=== PATIENT | male | born 1960 | race Asian ===

== ENCOUNTER 2016-11-07 15:36 | Emergency (ER) | payer OTHER ==
[~2016-11-07] VITALS: Ht 170.2 cm; Wt 82.0 kg
[~2016-11-07 15:36] MED LIST: D-ME118S6 PO; IBUP800T25 PO; ULT50 PO
[2016-11-07 15:39] VITALS: Ht 170.2 cm; Wt 82.0 kg
[2016-11-07] MEDS ORDERED: OSLT75C PO (16:01)
[2016-11-07] MEDS ORDERED: IBUP-1542 PO (16:01)
[2016-11-07] MEDS ORDERED: UDROBDM PO (16:02)
[2016-11-07] MEDS ORDERED: ACET500C5 PO (16:02)
[2016-11-07] MEDS ORDERED: SODI126M NASAL (16:03)
--- NOTE | 2016-11-07 16:09 | ERD ---
ER Documentation Chief Complaint Date/Time DATE: 11/07/16 TIME: 16:06 Chief Complaint FEVER , RUNNY NOSE , COUGH , BODY ACHE , WATERY EYES X 1 WEEK HPI 56-year-old male who presents to emergency department today for intermittent fevers, cough several days ago, runny nose, body ache and watery eyes for the past couple of days. Patient states he was seen another hospital and was diagnosed with a throat infection given amoxicillin. States "I need my amoxicillin" denies any vomiting or diarrhea. ROS All systems reviewed and are negative except as per history of present illness. Medications Home Meds Active Scripts Sodium Chloride (Saline Nasal Mist) 126 Ml Mist, 1 SPRAY NASAL DAILY, #1 BOTTLE Prov:MELANIA RM PA-C 11/07/16 Guaifenesin-Dextromethorphan* (Robitussin* DM) 100MG/10MG/5ML Syrup, 10 ML PO Q4H Y for COUGH for 7 Days, ML Prov:MELANIA RM PA-C 11/07/16 Acetaminophen* (Tylophen*) 500 Mg Capsule, 1 CAP PO Q6H Y for PAIN AND OR ELEVATED TEMP, #30 CAP Prov:MELANIA RM PA-C 11/07/16 Ibuprofen* (Motrin*) 600 Mg Tab, 600 MG PO Q6, #30 TAB Prov:MELANIA RM PA-C 11/07/16 Oseltamivir Phosphate* (Tamiflu*) 75 Mg Capsule, 75 MG PO BID for 5 Days, CAP Prov:MELANIA RM PA-C 11/07/16 Tramadol HCl (Tramadol HCl) 50 Mg Tablet, 50 MG PO Q4 Y for PAIN, #20 TAB Prov:TYSON KATE MD 10/13/16 Tramadol HCl (Tramadol HCl) 50 Mg Tablet, 50 MG PO Q4 Y for PAIN, #10 TAB Prov:MELANIA RM PA-C 08/11/16 Dextromethorphan Hb-Promethazine Hcl (Promethazine DM Syrup) 180 Ml Syrup, 5 ML PO Q6H Y for COUGH, #4 OZ Prov:MELANIA RM PA-C 04/26/16 Reported Medications Ibuprofen* (Motrin*) 800 Mg Tab, 800 MG PO DAILY Y for PAIN, TAB 09/24/14 Allergies Allergies: Coded Allergies: No Known Allergy (Unverified , 10/13/16) PMhx/Soc History of Surgery: Yes Anesthesia Reaction: No Hx Neurological Disorder: No Hx Respiratory Disorders: No Hx Cardiac Disorders: Yes (HTN, High Cholesterol) Hx Psychiatric Problems: Yes (ANXIETY) Hx Miscellaneous Medical Probl: No Hx Alcohol Use: Yes Hx Substance Use: No Hx Tobacco Use: No Physical Exam Vitals Vital Signs Date Time Temp Pulse Resp B/P Pulse Ox O2 Delivery O2 Flow Rate FiO2 11/07/16 15:39 98.3 78 18 134/76 97 Physical Exam Const: No acute distress, nontoxic appearing Head: Atraumatic Eyes: Normal Conjunctiva ENT: Ears TMs normal. Nose no drainage. Throat no erythema no exudate Neck: Full range of motion..~ No meningismus. Resp: Clear to auscultation bilaterally. No absent breath sounds. No wheezing. Cardio: Regular rate and rhythm, no murmurs Abd: Soft, non tender, non distended. Normal bowel sounds Skin: No petechiae or rashes Back: No midline or flank tenderness Neur: Awake and alert Psych: Normal Mood and Affect Procedures/MDM This is 56-year-old male who presents to the emergency department today complaining of flulike symptoms for the past several days. Patient was requesting amoxicillin. I've explained to the patient that amoxicillin is not indicated for his symptoms.. I have low suspicion for strep pharyngitis, peritonsillar abscess, retropharyngeal abscess, otitis media, PNA, sinusitis, abscess, meningitis, sepsis, or other acute infectious bacterial process. On physical exam patient is afebrile. His oxygen saturation is 97% and respirations are 18. I do not feel the patient requires further workup or admission at this time. The patient has had symptoms for more than a couple days given his age I did feel it is appropriate to give him a prescription for Tamiflu. He was also given a prescription for Tylenol, Motrin, Robitussin and nasal saline. He is instructed to follow-up with his primary care physician. At this time the patient is stable for discharge and outpatient management. They should follow up with their PCP in the next 1-2. They may return to the emergency department sooner if symptoms persist or worsen. Patient understood and agreed with the plan. Departure Diagnosis: Primary Impression: Influenza-like symptoms Condition: Fair Patient Instructions: Influenza (Adult) Referrals: IVY UGALDE (PCP) Additional Instructions: Call your primary care doctor TOMORROW for an appointment during the next 1-2 days.See the doctor sooner or return here if your condition worsens before your appointment time. Tamiflu as prescribed Take Tylenol or Motrin for fever or body aches Take Robitussin for cough Nasal saline for runny nose MELANIA RM PA-C Nov 07, 2016 16:09
== END 2016-11-07 16:05 | disposition home or self-care (01) ==
LOC: FTE 15:36 → E/R 16:05
DX: R50.9 Fever, unspecified (principal); R05 Cough; R09.89 Other specified symptoms and signs involving the circulatory and respiratory systems; I10 Essential (primary) hypertension
CPT/HCPCS: 99283

== ENCOUNTER 2017-01-02 13:04 | Emergency (ER) | payer OTHER ==
[~2017-01-02] VITALS: Ht 167.6 cm; Wt 82.5 kg
[~2017-01-02 13:04] MED LIST changes: +ACET500C5 PO; +IBUP-1542 PO; +OSLT75C PO; +SODI126M NASAL; +TRAM50TA2 PO; +UDROBDM PO; -ULT50 PO
[2017-01-02 13:09] VITALS: Ht 167.6 cm; Wt 82.5 kg
[2017-01-02] MEDS ORDERED: SOD CHLORIDE 0.9% 1,000 ML IV STA (16:18)
[2017-01-02 16:55] VITALS: BP 101/58; PULSE 83; RESP 18
[2017-01-02] MEDS ORDERED: KETOROLAC 60 MG INJ IM STA (16:57)
--- NOTE | 2017-01-02 17:59 | ERD ---
ER Documentation Chief Complaint Date/Time DATE: 01/02/17 TIME: 17:56 Chief Complaint left leg pain x 5 days HPI 56-year-old male with a past medical history of hypertension, chronic sciatica presents to the ED complaining of worsening pain that started 5 days ago. States that this pain has been going on intermittently for the last few years. Reports that he sees a chronic pain specialist. Reports that he was feeling stressed out about his pain so he decided to take 2 of his antihypertensive medications, enalapril earlier this morning and this is the reason for his low blood pressure when he presented to the ER. Denies any chest pain, shortness of breath, abdominal pain, nausea, vomiting, diarrhea, headache, numbness or tingling, weakness, fatigue, fever, chills. States that he takes [place], Ambien , tramadol, simvastatin, omeprazole, Benadryl, meloxicam and enalapril. ROS All systems reviewed and are negative except as per history of present illness. Medications Home Meds Active Scripts Sodium Chloride (Saline Nasal Mist) 126 Ml Mist, 1 SPRAY NASAL DAILY, #1 BOTTLE Prov:MELANIA RM PA-C 11/07/16 Guaifenesin-Dextromethorphan* (Robitussin* DM) 100MG/10MG/5ML Syrup, 10 ML PO Q4H Y for COUGH for 7 Days, ML Prov:MELANIA RMC 11/07/16 Acetaminophen* (Tylophen*) 500 Mg Capsule, 1 CAP PO Q6H Y for PAIN AND OR ELEVATED TEMP, #30 CAP Prov:MELANIA RM PA-C 11/07/16 Ibuprofen* (Motrin*) 600 Mg Tab, 600 MG PO Q6, #30 TAB Prov:MELANIA RMC 11/07/16 Oseltamivir Phosphate* (Tamiflu*) 75 Mg Capsule, 75 MG PO BID for 5 Days, CAP Prov:MELANIA RM PA-C 11/07/16 Tramadol HCl (Tramadol HCl) 50 Mg Tablet, 50 MG PO Q4 Y for PAIN, #20 TAB Prov:TYSON KATE MD 10/13/16 Tramadol HCl (Tramadol HCl) 50 Mg Tablet, 50 MG PO Q4 Y for PAIN, #10 TAB Prov:MELANIA RM PA-C 08/11/16 Dextromethorphan Hb-Promethazine Hcl (Promethazine DM Syrup) 180 Ml Syrup, 5 ML PO Q6H Y for COUGH, #4 OZ Prov:JAGMELANIA Weller PA-C 04/26/16 Reported Medications Ibuprofen* (Motrin*) 800 Mg Tab, 800 MG PO DAILY Y for PAIN, TAB 09/24/14 Allergies Allergies: Coded Allergies: No Known Allergy (Unverified , 10/13/16) PMhx/Soc History of Surgery: Yes Anesthesia Reaction: No Hx Neurological Disorder: No Hx Respiratory Disorders: No Hx Cardiac Disorders: Yes (HTN, High Cholesterol) Hx Psychiatric Problems: Yes (ANXIETY) Hx Miscellaneous Medical Probl: No Hx Alcohol Use: Yes Hx Substance Use: No Hx Tobacco Use: Yes Smoking Status: Current every day smoker Physical Exam Vitals Temp 97.7 Pulse 83 SBP 101 DBP 58 O2 Sat 96 Physical Exam Const: [id number], well-nourished. In no acute distress. Head: Atraumatic, normocephalic Eyes: Normal Conjunctiva without injection ENT: Normal external ear, nose and mouth. Neck: Full range of motion. No meningismus. Resp: Clear to auscultation bilaterally. No wheezing, rhonchi, rales, or crackles. No accessory muscle use. No retractions. Cardio: Regular rate and rhythm, no murmurs Skin: No petechiae or rashes Back: No midline tenderness. Tenderness to palpation of left buttocks and lumbar region. No CVA tenderness. Positive left straight leg test. Ext: No cyanosis, or edema. Cap refill less than 2 seconds. Distal pulses intact bilaterally. No tenderness with palpation of the bilateral lower extremities. No warmth to touch. No erythema, edema. Neur: Awake and alert. Normal gait and coordination. Muscle strength 5/5. Sensation intact bilaterally. Psych: Normal Mood and Affect Results 24 hrs Current Medications Medications (Trade) Dose Ordered Sig/Yessy Route PRN Reason Start Time Stop Time Status Last Admin Dose Admin Sodium Chloride (NS) 1,000 ml @ 1,000 mls/hr Q1H STAT IV 01/02/17 16:18 01/02/17 17:17 Cancel Ketorolac Tromethamine (Toradol) 60 mg ONCE STAT IM 01/02/17 16:57 01/02/17 16:59 DC 01/02/17 17:05 Procedures/MDM This is a 56-year-old male with a past medical history of chronic sciatica, hypertension presents the ED complaining of the same chronic pain he has been experiencing. Patient is afebrile and nontoxic-appearing. Patient's blood pressure was noted to be 90/53. This is secondary to patient taking 2 tabs of his enalapril when he is only suppose to take 1 tablet. He received an MRI 4 months ago, I instructed patient that if this feels like new type of pain he should follow-up with his primary care physician to repeat the MRI. Patient is ambulating here in the ED without difficulty. Denies saddle anesthesia, numbness or tingling, urine or bowel incontinence, weakness. Low suspicion for cauda equina syndrome, cord compression, nephrolithiasis, aortic aneurysm, aortic dissection, epidural abscess, spinal hematoma, malignancy, pyelonephritis , degenerative disc disease, spinal stenosis, or other emergent conditions. Patient has been seen here previously for the same type of pain. Patient already filled a prescription on December 24, 2016 for 45 tabs of [place] as well as December 25, 2016 for 15 tabs of [place]. Patient has a long standing history of narcotic use for his chronic pain. I instructed patient that he should follow-up with his pain specialist and should not return to the ED for any refills for his narcotic medications. This case was discussed with my supervising physician, Dr. Adler. Follow up with primary care physician and chronic pain specialist in 1-2 days. Instructed patient to return to the ED sooner for any worsening symptoms. Patient's questions were answered. Patient understood and agreed with discharge plan. Patient discharged stable. Departure Diagnosis: Primary Impression: Chronic sciatica of left side Condition: Stable Patient Instructions: Taking Medication Safely, Understanding Sciatica, Back Pain W/ Sciatica Referrals: [facility] YOU HAVE RECEIVED A MEDICAL SCREENING EXAM AND THE RESULTS INDICATE THAT YOU DO NOT HAVE A CONDITION THAT REQUIRES URGENT TREATMENT IN THE EMERGENCY DEPARTMENT. FURTHER EVALUATION AND TREATMENT OF YOUR CONDITION CAN WAIT UNTIL YOU ARE SEEN IN YOUR DOCTORS OFFICE WITHIN THE NEXT 1-2 DAYS. IT IS YOUR RESPONSIBILITY TO MAKE AN APPOINTMENT FOR FOLOW-UP CARE. IF YOU HAVE A PRIMARY DOCTOR --you should call your primary doctor and schedule an appointment IF YOU DO NOT HAVE A PRIMARY DOCTOR YOU CAN CALL OUR PHYSICIAN REFERRAL HOTLINE AT IF YOU CAN NOT AFFORD TO SEE A PHYSICIAN YOU CAN CHOSE FROM THE FOLLOWING [facility] [address] [facility] [address] [facility] [address] [facility] [address] [facility] [address] [facility]. [facility] [address] [facility]. [facility] YOU HAVE RECEIVED A MEDICAL SCREENING EXAM AND THE RESULTS INDICATE THAT YOU DO NOT HAVE A CONDITION THAT REQUIRES URGENT TREATMENT IN THE EMERGENCY DEPARTMENT. FURTHER EVALUATION AND TREATMENT OF YOUR CONDITION CAN WAIT UNTIL YOU ARE SEEN IN YOUR DOCTORS OFFICE WITHIN THE NEXT 1-2 DAYS. IT IS YOUR RESPONSIBILITY TO MAKE AN APPOINTMENT FOR FOLOW-UP CARE. IF YOU HAVE A PRIMARY DOCTOR --you should call your primary doctor and schedule and appointment IF YOU DO NOT HAVE A PRIMARY DOCTOR YOU CAN CALL OUR PHYSICIAN REFERRAL HOTLINE AT . IF YOU CAN NOT AFFORD TO SEE A PHYSICIAN YOU CAN CHOSE FROM THE FOLLOWING [facility]: [facility] [address] [place] [address] [facility] [address] [place] [address] [facility] [address] [place] [address] [facility] Additional Instructions: FOLLOW UP WITH YOUR CHRONIC PAIN SPECIALIST TOMORROW FOR FURTHER EVALUATION AND TREATMENT. Return to this facility if you are not improving as expected. AVA EVANS PA-C Jan 02, 2017 17:59 TREATMENT. Return to this facility if you are not improving as expected. AVA EVANS PA-C Jan 02, 2017 17:59
--- NOTE | 2017-01-03 06:46 | RADRPT ---
PROCEDURE: XR Chest. CLINICAL INDICATION: Chest pain. TECHNIQUE: Single frontal view. COMPARISON: 04/26/2016. FINDINGS: The lungs are clear. The heart size is normal. There is no pleural effusion. There is no pneumothorax. IMPRESSION: 1. Normal chest radiograph. 2. No change from 04/26/2016. RPTAT: QQ .Fabien French MD, MD Date Time Electronically viewed and signed by .Fabien French MD, MD on 01/02/2017 16:58 .R/
== END 2017-01-02 17:57 | disposition home or self-care (01) ==
LOC: FTE 13:04
DX: M54.32 Sciatica, left side (principal); I10 Essential (primary) hypertension; F17.210 Nicotine dependence, cigarettes, uncomplicated
CPT/HCPCS: 71010; 93005; 96372; J1885; Z7502; J7030

== ENCOUNTER 2017-01-22 10:34 | Emergency (ER) | payer OTHER ==
[~2017-01-22] VITALS: Ht 175.3 cm; Wt 87.0 kg
[2017-01-22 10:41] VITALS: Ht 175.3 cm; Wt 87.0 kg
[2017-01-22] MEDS ORDERED: KETOROLAC 60 MG INJ IM STA (11:57)
--- NOTE | 2017-01-22 13:58 | ERD ---
DATE OF SERVICE: HISTORY OF PRESENT ILLNESS: The patient is a 56-year-old male complaining of left leg pain for 2 we eks. Patient states he has a long history of sciatica pain and this feels the same as previous scia jennifer pain. He states that he takes tramadol and [place] with no alleviation of symptoms. He has had a long history of chronic pain use and is requesting stronger pain medication. He has not had any f teresa, no numbness or tingling down his legs. He is able to ambulate without difficulty. The patie nt denies any urinary retention or bladder incontinence. The urine or bowel incontinence or urinary retention. He denies any numbness or tingling in the saddle region. PAST MEDICAL HISTORY: Denies any other medical problems. ALLERGIES TO MEDICATIONS: Denies. PAST SURGICAL HISTORY/HOSPITALIZATIONS: Denies. REVIEW OF SYSTEMS: A 12-point review of systems was done. Refer to HPI for positives, all other sy stems negative. PHYSICAL EXAMINATION VITAL SIGNS: Temperature is 96.7, pulse 77, blood pressure is 115/59, respiratory rate 20, O2 satur ation 98% on room air. Pain intensity 8/10. GENERAL: The patient is well-appearing, well-nourished, no acute distress. HEENT: Atraumatic. Conjunctivae are pink. Pupils equal, round, and reactive to light. There is no s cleral icterus. Tympanic membranes clear bilaterally. Oropharynx clear. No nystagmus or photophobia . CHEST: Clear to auscultation bilaterally. There are no rales, wheezes or rhonchi. HEART: Regular rate and rhythm. No murmurs, clicks, rubs or gallops. No S3 or S4. EXTREMITIES: Equal pulses bilaterally. There is no peripheral clubbing, cyanosis or edema. No focal swelling or erythema. Full range of motion. Grossly neurovascularly intact. NEURO: Alert and oriented. Cranial nerves 2-12 intact. Motor strength in all 4 extremities with 5/5 strength. Sensation grossly intact. Normal speech and gait. Babinski negative. DTR 2+ throughout. SKIN: There is no apparent rash or petechia. The skin is warm and dry. EMERGENCY ROOM COURSE: The patient given Toradol in the ER. DIAGNOSIS: Sciatica back pain. MEDICAL DECISION MAKING: I did not feel that there was indication for imaging at this time. The jaiden carrero states that his pain is the same as his previous pain related to sciatica. I did not feel alana t patient should be discharged with stronger pain medication. I feel patient would benefit from a p ain head of talent management given that this seems to be a chronic type pain. This was explained in de tail with the patient and he understood and complied. DISCHARGE: The patient is discharged stable. Patient is told to take medications as previously pre scribed. The patient was also given the name of furniture painter. All other questions an swered at time of discharge. Discharge summary given at the time of departure. Patient understood and complied with plan. Dictated By: SARAH THAKUR for TYSON EDWARDS/RENE Conf#: [id number] DID#: [id number]
== END 2017-01-22 12:22 | disposition home or self-care (01) ==
LOC: FTE 10:34
DX: M54.42 Lumbago with sciatica, left side (principal); I10 Essential (primary) hypertension; F17.210 Nicotine dependence, cigarettes, uncomplicated
CPT/HCPCS: 96372; J1885; Z7502

== ENCOUNTER 2017-02-03 15:18 | Emergency (ER) | payer OTHER ==
[~2017-02-03] VITALS: Ht 167.6 cm; Wt 85.5 kg
[2017-02-03 15:22] VITALS: Ht 167.6 cm; Wt 85.5 kg
[2017-02-03] MEDS ORDERED: KETOROLAC 30 MG INJ IM STA (15:54)
--- NOTE | 2017-02-03 16:06 | ERD ---
ER Documentation Chief Complaint Date/Time DATE: 02/03/17 TIME: 16:04 Chief Complaint LEFT LEG "CHRONIC NEUROPATHIC PAIN" HPI This 56-year-old male who presents to the emergency department today complaining of chronic leg pain. States that this is the same pain he always has however it is getting "worse" states he is unsure who his pain management doctor is. Denies any fevers or chills, loss of bowel or bladder control ROS All systems reviewed and are negative except as per history of present illness. Medications Home Meds Active Scripts Sodium Chloride (Saline Nasal Mist) 126 Ml Mist, 1 SPRAY NASAL DAILY, #1 BOTTLE Prov:MELANIA RMC 11/07/16 Guaifenesin-Dextromethorphan* (Robitussin* DM) 100MG/10MG/5ML Syrup, 10 ML PO Q4H Y for COUGH for 7 Days, ML Prov:MELANIA RMC 11/07/16 Acetaminophen* (Tylophen*) 500 Mg Capsule, 1 CAP PO Q6H Y for PAIN AND OR ELEVATED TEMP, #30 CAP Prov:MELANIA RMC 11/07/16 Ibuprofen* (Motrin*) 600 Mg Tab, 600 MG PO Q6, #30 TAB Prov:MELANIA RM PA-C 11/07/16 Oseltamivir Phosphate* (Tamiflu*) 75 Mg Capsule, 75 MG PO BID for 5 Days, CAP Prov:MELANIA RMC 11/07/16 Tramadol HCl (Tramadol HCl) 50 Mg Tablet, 50 MG PO Q4 Y for PAIN, #20 TAB Prov:TYSON KATE MD 10/13/16 Tramadol HCl (Tramadol HCl) 50 Mg Tablet, 50 MG PO Q4 Y for PAIN, #10 TAB Prov:MELANIA RM PA-C 08/11/16 Dextromethorphan Hb-Promethazine Hcl (Promethazine DM Syrup) 180 Ml Syrup, 5 ML PO Q6H Y for COUGH, #4 OZ Prov:MELANIA RMC 04/26/16 Reported Medications Ibuprofen* (Motrin*) 800 Mg Tab, 800 MG PO DAILY Y for PAIN, TAB 09/24/14 Allergies Allergies: Coded Allergies: No Known Allergy (Unverified , 02/03/17) PMhx/Soc History of Surgery: Yes Anesthesia Reaction: No Hx Neurological Disorder: No Hx Respiratory Disorders: No Hx Cardiac Disorders: Yes (HTN, High Cholesterol) Hx Psychiatric Problems: Yes (ANXIETY, paranoid schzo) Hx Miscellaneous Medical Probl: Yes (siatica) Hx Alcohol Use: Yes Hx Substance Use: No Hx Tobacco Use: Yes Smoking Status: Never smoker Physical Exam Vitals Vital Signs Date Time Temp Pulse Resp B/P Pulse Ox O2 Delivery O2 Flow Rate FiO2 02/03/17 15:22 98.1 92 18 104/64 95 Physical Exam Const: No acute distress Head: Atraumatic Eyes: Normal Conjunctiva ENT: Normal External Ears, Nose and Mouth. Neck: Full range of motion..~ No meningismus. Resp: Clear to auscultation bilaterally Cardio: Regular rate and rhythm, no murmurs Skin: No petechiae or rashes Back: No midline or flank tenderness Ext: No cyanosis, or edema Neur: Awake and alert Psych: Normal Mood and Affect Results 24 hrs Current Medications Medications (Trade) Dose Ordered Sig/Yessy Route PRN Reason Start Time Stop Time Status Last Admin Dose Admin Ketorolac Tromethamine (Toradol) 30 mg ONCE STAT IM 02/03/17 15:54 02/03/17 15:55 DC Procedures/MDM This 56-year-old male who presents to the emergency department today complaining of chronic leg pain and sciatic pain. This is the patient's third visit to the emergency department this year for the same complaint. Patient has also had multiple visits in the past for pain. Patient is always requesting stronger pain medication that you are he has. Patient has a history of taking [place] and tramadol in the past. I do not feel the patient requires further workup or imaging at this time or repeat imaging. Patient is afebrile and otherwise well-appearing. Is no loss of bowel or bladder control. Low suspicion for cauda equina or abscess. I do not feel the patient would benefit from a narcotic medication at this time. Patient is persistently asking for 60 mg of Toradol as he states he is gotten that in the past. I explained to the patient that I do not feel that this is beneficial at this time given the amount of injections that he has had and that 30 mg is safer for him especially given his age. I explained this to the patient multiple times. I explained to him that he would not be getting more than 30 mg of Toradol today. Do not feel this patient would benefit from 60 mg of Toradol as he often presents to the emergency department. Patient symptoms at this time is consistent with sciatic pain. Patient was given a referral information for Dr. Lind. He has been given this information in the past I believe. Patient was instructed that if he was unable to see them that he should try to find out who his pain management doctor is. At this time the patient is stable for discharge and outpatient management. Patient should follow up with their PCP in the next 1-2 days. They may return to the emergency department sooner for any persistent or worsening of symptoms. Patient understood and agreed with the plan. Departure Diagnosis: Primary Impression: Chronic sciatica of left side Condition: Fair Patient Instructions: Pain Management, Back Pain W/ Sciatica Referrals: SONNY GIMENEZ NP (PCP) Dr. Lind Additional Instructions: Call your primary care doctor TOMORROW for an appointment during the next 1-2 days.See the doctor sooner or return here if your condition worsens before your appointment time. Make an appointment with your pain management doctor Make an appointment Dr. Lind if she takes your insurance Take your usual home pain medication MELANIA RM PA-C Feb 03, 2017 16:06
== END 2017-02-03 16:30 | disposition home or self-care (01) ==
LOC: FTE 15:18
DX: M54.32 Sciatica, left side (principal); I10 Essential (primary) hypertension; Z87.891 Personal history of nicotine dependence
CPT/HCPCS: 96372; J1885

== ENCOUNTER 2017-02-11 15:45 | Emergency (ER) | payer OTHER ==
[~2017-02-11] VITALS: Ht 160 cm; Wt 89.0 kg
[2017-02-11 15:57] VITALS: Ht 160 cm; Wt 89.0 kg
[2017-02-11] MEDS ORDERED: KETOROLAC 30 MG INJ IM STA (18:30)
[2017-02-11] MEDS ORDERED: NAPR-260 PO (18:32)
--- NOTE | 2017-02-11 18:32 | ERD ---
ER Documentation Chief Complaint Date/Time DATE: 02/11/17 TIME: 18:30 Chief Complaint back pain rad left leg, hx sciatica HPI This is a 56 year-old male presents to the emergency room for evaluation of back pain radiating down his left leg. The patient does have a history of sciatica and was seen in the emergency room previously was discharged home with Motrin. The patient denies any urinary incontinence or urinary retention ROS All systems reviewed and are negative except as per history of present illness. Medications Home Meds Active Scripts Sodium Chloride (Saline Nasal Mist) 126 Ml Mist, 1 SPRAY NASAL DAILY, #1 BOTTLE Prov:MELANIA RMC 11/07/16 Guaifenesin-Dextromethorphan* (Robitussin* DM) 100MG/10MG/5ML Syrup, 10 ML PO Q4H Y for COUGH for 7 Days, ML Prov:MELANIA RMC 11/07/16 Acetaminophen* (Tylophen*) 500 Mg Capsule, 1 CAP PO Q6H Y for PAIN AND OR ELEVATED TEMP, #30 CAP Prov:MELANIA RMC 11/07/16 Ibuprofen* (Motrin*) 600 Mg Tab, 600 MG PO Q6, #30 TAB Prov:MELANIA RM PA-C 11/07/16 Oseltamivir Phosphate* (Tamiflu*) 75 Mg Capsule, 75 MG PO BID for 5 Days, CAP Prov:MELANIA RMC 11/07/16 Tramadol HCl (Tramadol HCl) 50 Mg Tablet, 50 MG PO Q4 Y for PAIN, #20 TAB Prov:TYSON KATE MD 10/13/16 Tramadol HCl (Tramadol HCl) 50 Mg Tablet, 50 MG PO Q4 Y for PAIN, #10 TAB Prov:MELANIA RM PA-C 08/11/16 Dextromethorphan Hb-Promethazine Hcl (Promethazine DM Syrup) 180 Ml Syrup, 5 ML PO Q6H Y for COUGH, #4 OZ Prov:MELANIA RMC 04/26/16 Reported Medications Ibuprofen* (Motrin*) 800 Mg Tab, 800 MG PO DAILY Y for PAIN, TAB 09/24/14 Allergies Allergies: Coded Allergies: No Known Allergy (Unverified , 02/03/17) PMhx/Soc History of Surgery: Yes Anesthesia Reaction: No Hx Neurological Disorder: No Hx Respiratory Disorders: No Hx Cardiac Disorders: Yes (HTN, High Cholesterol) Hx Psychiatric Problems: Yes (ANXIETY, paranoid schzo) Hx Miscellaneous Medical Probl: Yes (siatica) Hx Alcohol Use: Yes Hx Substance Use: No Hx Tobacco Use: Yes Physical Exam Vitals Vital Signs Date Time Temp Pulse Resp B/P Pulse Ox O2 Delivery O2 Flow Rate FiO2 02/11/17 15:57 98.1 90 18 140/71 99 Physical Exam Const: No acute distress Head: [Atraumatic] Eyes: [Normal Conjunctiva] ENT: [Normal External Ears, Nose and Mouth.] Neck: [Full range of motion. No meningismus.] Resp: [Clear to auscultation bilaterally] Cardio: [Regular rate and rhythm, no murmurs] Abd: [Soft, non tender, non distended. Normal bowel sounds] Skin: [No petechiae or rashes] Back: [No midline or flank tenderness] Ext: [No cyanosis, or edema] positive straight leg raise at 20 on left, Neur: [Awake and alert] Psych: [Normal Mood and Affect] Procedures/MDM This 46-year-old male presents to the ER for evaluation of back pain. This patient does have a history of sciatica and does have a pain consistent with sciatica today. Does have a positive straight leg raise. He was given Toradol and will be discharged home with a prescription for Naprosyn instructions to follow-up with his primary care for an MRI Departure Diagnosis: Primary Impression: Chronic sciatica of left side Condition: Stable SANDY MOSER DO Feb 11, 2017 18:31
== END 2017-02-11 18:50 | disposition home or self-care (01) ==
LOC: FTE 15:45
DX: M54.32 Sciatica, left side (principal); I10 Essential (primary) hypertension; Z87.891 Personal history of nicotine dependence
CPT/HCPCS: 96372; J1885; Z7502

== ENCOUNTER 2017-03-07 15:32 | Emergency (ER) | payer OTHER ==
[~2017-03-07] VITALS: Ht 167.6 cm; Wt 85.5 kg
[~2017-03-07 15:32] MED LIST changes: +NAPR-260 PO
[2017-03-07 15:39] VITALS: Ht 167.6 cm; Wt 85.5 kg
[2017-03-07] MEDS ORDERED: AZIT250T94 PO (16:16)
[2017-03-07] MEDS ORDERED: LORA10CA PO (16:16)
--- NOTE | 2017-03-07 16:20 | ERD ---
ER Documentation Chief Complaint Date/Time DATE: 03/07/17 TIME: 16:18 Chief Complaint RUNNY NOSE, WATERY EYES X 4 DAYS HPI 56-year-old male is here complaining of runny nose and watery eyes that he has had for 4 days. Also admits to subjective fever and cough that is dry and worse at night. He is adamant about getting antibiotics as he states he has had these symptoms in the past and has had good relief of his symptoms with antibiotics. He denies any nausea or vomiting or diarrhea. Denies any chest pain or shortness of breath peer ROS All systems reviewed and are negative except as per history of present illness. Medications Home Meds Active Scripts Loratadine* (Claritin*) 10 Mg Capsule, 10 MG PO DAILY, #30 CAP Prov:DAVY MONTELONGO PA-C 03/07/17 Azithromycin* (Zithromax*) 250 Mg Tablet, 250 MG PO .ZPACK DIRECTED, #6 TAB TAKE 500 MG (2 TABS) THE FIRST DAY THEN 250 MG (1 TAB) DAYS 2-5 Prov:DAVY MONTELONGO PA-C 03/07/17 Naproxen* (Naprosyn*) 500 Mg Tablet, 500 MG PO BID Y for PAIN AND/OR INFLAMMATION, #30 TAB Prov:SANDY MOSER DO 02/11/17 Sodium Chloride (Saline Nasal Mist) 126 Ml Mist, 1 SPRAY NASAL DAILY, #1 BOTTLE Prov:MELANIA RM PA-C 11/07/16 Guaifenesin-Dextromethorphan* (Robitussin* DM) 100MG/10MG/5ML Syrup, 10 ML PO Q4H Y for COUGH for 7 Days, ML Prov:MELANIA RM PA-C 11/07/16 Acetaminophen* (Tylophen*) 500 Mg Capsule, 1 CAP PO Q6H Y for PAIN AND OR ELEVATED TEMP, #30 CAP Prov:MELANIA RM PA-C 11/07/16 Ibuprofen* (Motrin*) 600 Mg Tab, 600 MG PO Q6, #30 TAB Prov:MELANIA RM PA-C 11/07/16 Oseltamivir Phosphate* (Tamiflu*) 75 Mg Capsule, 75 MG PO BID for 5 Days, CAP Prov:MELANIA RM PA-C 11/07/16 Tramadol HCl (Tramadol HCl) 50 Mg Tablet, 50 MG PO Q4 Y for PAIN, #20 TAB Prov:TYSON KATE MD 10/13/16 Tramadol HCl (Tramadol HCl) 50 Mg Tablet, 50 MG PO Q4 Y for PAIN, #10 TAB Prov:MELANIA RMC 08/11/16 Dextromethorphan Hb-Promethazine Hcl (Promethazine DM Syrup) 180 Ml Syrup, 5 ML PO Q6H Y for COUGH, #4 OZ Prov:MELANIA RMC 04/26/16 Reported Medications Ibuprofen* (Motrin*) 800 Mg Tab, 800 MG PO DAILY Y for PAIN, TAB 09/24/14 Allergies Allergies: Coded Allergies: No Known Allergy (Unverified , 02/03/17) PMhx/Soc History of Surgery: Yes Anesthesia Reaction: No Hx Neurological Disorder: No Hx Respiratory Disorders: No Hx Cardiac Disorders: Yes (HTN, High Cholesterol) Hx Psychiatric Problems: Yes (ANXIETY, paranoid schzo) Hx Miscellaneous Medical Probl: Yes (sciatica) Hx Alcohol Use: Yes Hx Substance Use: No Hx Tobacco Use: Yes FmHx Family History: No diabetes Physical Exam Vitals Vital Signs Date Time Temp Pulse Resp B/P Pulse Ox O2 Delivery O2 Flow Rate FiO2 03/07/17 15:39 98.8 91 18 133/81 96 Physical Exam General: well developed, well nourished, alert, nontoxic, no distress Head: normocephalic, atraumatic Eyes: PERRL, normal conjunctiva Neck: Supple, nontender, no lymphadenopathy, no midline tenderness Oropharynx: no tonsilar erythema or edema, uvula midline, no exudates, no kissing tonsils, no drooling Respiratory: Clear to auscaultation bilaterally, speaks in full sentences, no use of accesory muscles or labored breathing, no rales, ronchi, or wheezing Cardiovascular: RRR, No murmurs GI: soft, non tender, non distended, negative murphys sign, negative mcburneys point tenderness, no cva tenderness bilaterally, no rebound or guarding Back: no midline tenderness, no step offs or bony abnormalities, sensation to light touch in tact Procedures/MDM 56-year-old male presents with flulike symptoms. His vital signs are normal. I doubt he has pneumonia. This is most likely allergy related and I recommended Claritin which I given prescription for. The patient was very adamant about getting antibiotics which I explained to him are not indicated in his condition however he continue to press for antibiotics so I gave him a wait- and-see prescription for amoxicillin as well. Recommended this patient follow up with her primary care doctor within 48 hours or return to the emergency room for any worsening of symptoms. However this time I do believe there is suitable for outpatient management. I answered all their questions and they agreed with the plan and were discharged home. Departure Diagnosis: Primary Impression: Upper respiratory infection Condition: Stable Patient Instructions: Bronchitis, Antiobiotic Treatment (Adult) Additional Instructions: Call your primary care doctor TOMORROW for an appointment during the next 1-2 days.See the doctor sooner or return here if your condition worsens before your appointment time. DAVY MONTELONGO PA-C March 07, 2017 16:20
== END 2017-03-07 16:17 | disposition home or self-care (01) ==
LOC: E/R 15:32
DX: J06.9 Acute upper respiratory infection, unspecified (principal); I10 Essential (primary) hypertension; Z87.891 Personal history of nicotine dependence
CPT/HCPCS: 99283

== ENCOUNTER 2017-05-29 10:41 | Inpatient (IN) | payer OTHER ==
[~2017-05-29] VITALS: Ht 167.6 cm; Wt 81.1 kg
[~2017-05-29 10:41] MED LIST changes: +AZIT250T94 PO; +LORA10CA PO
--- NOTE | 2017-05-29 11:39 | RADRPT ---
AMENDMENT: 05/29/2017 11:40:26 AM Farshad Rae Md Call report with critical findings was made to physician insurance account assistant Ulises Lange PROCEDURE: CT Head without contrast. CLINICAL INDICATION: Trauma, pain TECHNIQUE: Continuous axial CT images were obtained from the base of skull to the vertex. No cont rast was administered. The calculated radiation dose measures 720 mGy centimeters. The CTDI measures 44 mGy COMPARISON: None available FINDINGS: There is high density in the anterior right frontal lobe, consistent with a parenchymal hematoma, me asuring 1.6 x 1.1 cm in size. There is mild adjacent low density contusion/edema, with minimal asso ciated mass effect. There is no midline shift. The ventricles are symmetric and normal in size. There is no mass effect or midline shift. There i s no abnormal intra-axial or extra-axial fluid collection. There is mild intracranial vascular calci fication. The bony calvarium is intact. The orbital soft tissue contents are unremarkable. Paranasal sinuses appear clear IMPRESSION: 1. Right frontal parenchymal hematoma, 16 x 11 mm. Minimal associated mass effect, without midline shift. 2. Mild intracranial vascular calcification. RPTAT: DD .Farshad Rae MD, MD Date Time Electronically viewed and signed by .Farshad Rae MD, MD on 05/29/2017 11:40 .T/
[2017-05-29] MEDS ORDERED: LEVETIRACETAM 1000 MG (PMX) 100 ML IVPB ONE (12:00)
--- NOTE | 2017-05-29 12:00 | RADRPT ---
PROCEDURE: CT facial bones CLINICAL INDICATION: Trauma, pain TECHNIQUE: Multiphase CT scan of the face was performed in the axial plane. Coronal and sagittal re-formations were performed. The calculated radiation dose measures 586 mGy centimeters. The CTDI m easures 30 mGy COMPARISON: None FINDINGS: The mandible is identified demonstrating no evidence of fracture or bony dysplasia. There is no joe dence of adjacent soft tissue swelling. The mid face and bony orbits demonstrate no evidence of acute fracture. Evaluation of the orbits de monstrates the globes to be normal in their size, shape, and attenuation bilaterally. No definite i ntra or extraconal soft tissue masses are seen. The optic nerve and nerve sheath complexes bilatera lly appear unremarkable. There is mucosal thickening in the paranasal sinuses. There is a cyst involving the left nasal alve olar ridge, contiguous with the root of a absent first maxillary incisor. This measures up to 1.4 x 2.1 cm. There is a small defect in the roof of the cyst which is open to the floor of the left ronald al cavity. There is right pre malar and periorbital soft tissue swelling. There are scattered small right level II lymph nodes, up to 10 x 10 mm. There is left temporomandibular joint degenerative change. IMPRESSION: 1. No evidence for acute fracture or dislocation. 2. Cystic lesion in the left maxillary alveolar ridge, 1.4 x 2.1 cm, with involvement of the root o f the left first maxillary incisor, which is absent. This may reflect an odontogenic keratocyst, cristina gisella periapical cyst or ameloblastoma. There is a small connection with the inferior left nasal cavi ty. 3. Right premalar and periorbital soft tissue swelling, consistent with contusion or cellulitis.. RPTAT: DD .Farshad Rae MD, MD Date Time Electronically viewed and signed by .Farshad Rae MD, on 05/29/2017 11:59 .T/
[2017-05-29 12:29] LABS: BASOPHIL # 0.1 10^3/ul (0.0-0.1); BASOPHILS % 0.8 % (0.0-2.0); EOSINOPHILS # 0.8 10^3/ul (0.0-0.5); HEMATOCRIT 39.2 % (42.0-52.0); HEMOGLOBIN 12.4 g/dl (14.0-18.0); LYMPHOCYTES # 1.1 10^3/ul (0.8-2.9); LYMPHOCYTES % 16.4 % (15.0-51.0); MEAN CORPUSCULAR HEMOGLOBIN 29.2 pg (29.0-33.0); MEAN CORPUSCULAR HGB CONC 31.6 g/dl (32.0-37.0); MEAN CORPUSCULAR VOLUME 92.5 fl (82.0-101.0); MEAN PLATELET VOLUME 8.4 fl (7.4-10.4); MONOCYTE # 0.6 10^3/ul (0.3-0.9); MONOCYTES % 8.4 % (0.0-11.0); NEUTROPHIL # 4.1 10^3/ul (1.6-7.5); NEUTROPHILS % 62.1 % (39.0-77.0); PLATELET COUNT 282 10^3/UL (140-415); RED BLOOD COUNT 4.24 10^6/ul (4.70-6.10); RED CELL DISTRIBUTION WIDTH 12.8 % (11.5-14.5); WHITE BLOOD COUNT 6.5 10^3/ul (4.8-10.8)
[2017-05-29] MEDS ORDERED: CLINDAMYCIN 600 MG/D5W (PMX) 50 ML IVPB SCH (12:30)
[2017-05-29] MEDS ORDERED: SOD CHLORIDE 0.9% 1,000 ML IV SCH (12:33)
[2017-05-29 12:40] LABS: INR 0.9; PROTIME 12.1 Sec (12.2-14.2); PT RATIO 0.9
[2017-05-29 12:41] LABS: PARTIAL THROMBOPLASTIN TIME 30.6 Sec (25.0-35.0)
--- NOTE | 2017-05-29 12:42 | ERA ---
ER Documentation Chief Complaint Date/Time DATE: 05/29/17 TIME: 12:37 Chief Complaint right facial swelling x 5 days s/p fall 5 days ago HPI This is a 66-year-old male who presents to the emergency room for evaluation of right facial pain and swelling. The patient did have a fall 5 days ago and states he tripped over his garden hose and fell forward and hit his head. He did not lose consciousness, he denies being on any blood thinners. The patient came to the ER because he states the swelling has not resolved on his right side. Patient also states that he has had a recent cavity on a tooth on the right side of his mouth. The patient denies any blurred vision or any trauma or pain anywhere else in his body. He denies headache at this time ROS All systems reviewed and are negative except as per history of present illness. Medications Home Meds Active Scripts Loratadine* (Claritin*) 10 Mg Capsule, 10 MG PO DAILY, #30 CAP Prov:DAVY MONTELONGO PA-C 03/07/17 Azithromycin* (Zithromax*) 250 Mg Tablet, 250 MG PO .LAZARUS DIRECTED, #6 TAB TAKE 500 MG (2 TABS) THE FIRST DAY THEN 250 MG (1 TAB) DAYS 2-5 Prov:DAVY MONTELONGO PA-C 03/07/17 Naproxen* (Naprosyn*) 500 Mg Tablet, 500 MG PO BID Y for PAIN AND/OR INFLAMMATION, #30 TAB Prov:SANDY MOSER DO 02/11/17 Sodium Chloride (Saline Nasal Mist) 126 Ml Mist, 1 SPRAY NASAL DAILY, #1 BOTTLE Prov:MELANIA RM PA-C 11/07/16 Guaifenesin-Dextromethorphan* (Robitussin* DM) 100MG/10MG/5ML Syrup, 10 ML PO Q4H Y for COUGH for 7 Days, ML Prov:MELANIA RM PA-C 11/07/16 Acetaminophen* (Tylophen*) 500 Mg Capsule, 1 CAP PO Q6H Y for PAIN AND OR ELEVATED TEMP, #30 CAP Prov:MELANIA RM PA-C 11/07/16 Ibuprofen* (Motrin*) 600 Mg Tab, 600 MG PO Q6, #30 TAB Prov:MELANIA RM PA-C 11/07/16 Oseltamivir Phosphate* (Tamiflu*) 75 Mg Capsule, 75 MG PO BID for 5 Days, CAP Prov:MELANIA RM PA-C 11/07/16 Tramadol HCl (Tramadol HCl) 50 Mg Tablet, 50 MG PO Q4 Y for PAIN, #20 TAB Prov:TYSON KATE MD 10/13/16 Tramadol HCl (Tramadol HCl) 50 Mg Tablet, 50 MG PO Q4 Y for PAIN, #10 TAB Prov:MELANIA RM PA-C 08/11/16 Dextromethorphan Hb-Promethazine Hcl (Promethazine DM Syrup) 180 Ml Syrup, 5 ML PO Q6H Y for COUGH, #4 OZ Prov:MELANIA RM PA-C 04/26/16 Reported Medications Ibuprofen* (Motrin*) 800 Mg Tab, 800 MG PO DAILY Y for PAIN, TAB 09/24/14 Allergies Allergies: Coded Allergies: No Known Allergy (Unverified , 02/03/17) PMhx/Soc History of Surgery: Yes Anesthesia Reaction: No Hx Neurological Disorder: No Hx Respiratory Disorders: No Hx Cardiac Disorders: Yes (HTN, High Cholesterol) Hx Psychiatric Problems: Yes (ANXIETY, paranoid schzo) Hx Miscellaneous Medical Probl: Yes (sciatica, neuropathy ) Hx Alcohol Use: Yes Hx Substance Use: No Hx Tobacco Use: Yes Smoking Status: Current every day smoker Physical Exam Vitals Vital Signs Date Time Temp Pulse Resp B/P Pulse Ox O2 Delivery O2 Flow Rate FiO2 05/29/17 10:43 97.9 85 18 134/82 96 Physical Exam INITIAL VITAL SIGNS: Reviewed by me GENERAL: The patient is well developed and appropriate for usual state of health in no apparent distress HEENT: Pupils equal, round, and reactive to light. EOMI. There is no scleral icterus. NECK: C-spine is soft and supple, there is no meningismus. There is no cervical lymphadenopathy. LUNGS: Clear to auscultation bilaterally. There are no rales, wheezes or rhonchi. HEART: Regular rate and rhythm, no murmurs, clicks, rubs or gallops. ABDOMEN: Soft, non-tender, non-distended. There are bowel sounds in all four quadrants. No rebound or guarding. EXTREMITIES: There is no peripheral cyanosis or edema. No focal swelling or erythema. NEUROLOGICAL: The patient moves all four extremities with 5/5 strength. Cranial nerves II - XII are intact. Normal gait. Alert and oriented SKIN: Soft tissue swelling and erythema noted over the right maxillary region of the face extending to the infraorbital area, there is no apparent rash or petechiae. HEME/LYMPHATIC: There is no evidence of excessive bruising or lymphedema. PSYCHIATRIC: The patient does not appear anxious or depressed. Result Diagram: 05/29/17 1215 Results 24 hrs Laboratory Tests Test 05/29/17 12:15 White Blood Count 6.510^3/ul Red Blood Count 4.2410^6/ul Hemoglobin 12.4g/dl Hematocrit 39.2% Mean Corpuscular Volume 92.5fl Mean Corpuscular Hemoglobin 29.2pg Mean Corpuscular Hemoglobin Concent 31.6g/dl Red Cell Distribution Width 12.8% Platelet Count 73959^3/UL Mean Platelet Volume 8.4fl Neutrophils % 62.1% Lymphocytes % 16.4% Monocytes % 8.4% Eosinophils % 12.0% Basophils % 0.8% Nucleated Red Blood Cells % 0.0/100WBC Neutrophils # 4.110^3/ul Lymphocytes # 1.110^3/ul Monocytes # 0.610^3/ul Eosinophils # 0.810^3/ul Basophils # 0.110^3/ul Nucleated Red Blood Cells # 0.010^3/ul Current Medications Medications (Trade) Dose Ordered Sig/Yessy Route PRN Reason Start Time Stop Time Status Last Admin Dose Admin Levetiracetam 100 ml @ 400 mls/hr ONCE ONCE IVPB 05/29/17 12:00 05/29/17 12:14 DC Clindamycin HCl/ Dextrose (Cleocin 600 Mg/ D5W (Pmx)) 50 ml @ 50 mls/hr ONCE IVPB 05/29/17 12:30 05/29/17 13:29 Procedures/MDM CT head without: 1. Right frontal parenchymal hematoma, 16 x 11 mm. Minimal associated mass effect, without midline shift. 2. Mild intracranial vascular calcification. CT face without: 1. No evidence for acute fracture or dislocation. 2. Cystic lesion in the left maxillary alveolar ridge, 1.4 x 2.1 cm, with involvement of the root of the left first maxillary incisor, which is absent. This may reflect an odontogenic keratocyst, versus periapical cyst or ameloblastoma. There is a small connection with the inferior left nasal cavity. 3. Right premalar and periorbital soft tissue swelling, consistent with contusion or cellulitis.. This 13-year-old male presents to the emergency room after a ground-level fall approximately 5 days ago. The patient presents to the ER for evaluation of swelling to his right face which has not subsided. When I evaluated this patient he had erythema and a moderate soft tissue swelling which extended to the infraorbital region of the right side of the face and extended down into the perioral region. The patient had no impingement of eye movement. CT of the head and face was obtained which does show a frontal intraparenchymal hemorrhage. The patient is hemodynamically stable with no focal neurological deficits at this time. I have contacted our neurosurgeon on-call, Dr. Melo who states the patient can be admitted for a repeat CAT scan in 6 hours. The patient was started on Keppra in the emergency room. The patient was also complaining of a cavity on the right side as well as CT of the face does show possible periapical abscess versus cellulitis. The patient was started on clindamycin as this is a soft tissue swelling can be contributed either to recent trauma versus an odontogenic cause of cellulitis. Patient will be admitted to the hospitalist, dr. Du Critical Care: Excluding all billable procedures Time: 32 minutes Treatments/Evaluations: Close monitoring and treatment of unstable vital signs, cardiorespiratory, and neurologic status, while maintaining tight balance of fluid, respiratory, and cardiac interventions. Departure Diagnosis: Primary Impression: Intraparenchymal hemorrhage of brain Additional Impression: Closed head injury Condition: Serious SANDY MOSER May 29, 2017 12:42
[2017-05-29 12:44] LABS: CALCIUM 9.2 mg/dl (8.4-10.2); CREATININE 1.01 mg/dl (0.61-1.24); POTASSIUM 4.2 mmol/L (3.5-5.1)
[2017-05-29] MEDS ORDERED: MAGNESIUM HYDROXIDE 30ML CUP PO PRN (13:00)
[2017-05-29] MEDS ORDERED: ACETAMINOPHEN 325 MG TAB PO PRN ×2 (13:00)
[2017-05-29] MEDS ORDERED: BISACODYL 10 MG SUPP PR PRN (13:00)
[2017-05-29] MEDS ORDERED: DOCUSATE SODIUM 100 MG CAP PO PRN (13:00)
[2017-05-29] MEDS ORDERED: ACETAMINOPHEN 650 MG SUPP PR PRN (13:00)
[2017-05-29] MEDS ORDERED: NACL 0.9% 3 ML SYG IV SCH (13:00)
[2017-05-29] MEDS ORDERED: HYDROCODONE/APAP (5/325) TAB PO PRN (13:00)
[2017-05-29] MEDS ORDERED: ONDANSETRON 4 MG INJ IV PRN ×2 (13:00)
[2017-05-29] MEDS: SALINE 0.65% 45 ML NAS SPRAY NASAL SCH (13:30)
[2017-05-29] MEDS ORDERED: OMEP20CA16 PO (13:55)
[2017-05-29] MEDS ORDERED: LISI20TA11 PO (13:57)
[2017-05-29] MEDS ORDERED: CARI350T29 PO (13:59)
[2017-05-29] MEDS ORDERED: BEN50 PO (13:59)
[2017-05-29 14:00] VITALS: BP 113/79; PULSE 62; RESP 17
[2017-05-29] MEDS ORDERED: TRAM-40 PO (14:21)
[2017-05-29] MEDS ORDERED: ALPR2TAB PO (14:22)
[2017-05-29] MEDS ORDERED: MELO-109 PO (14:24)
[2017-05-29] MEDS ORDERED: HYDR-902 PO (14:31)
[2017-05-29] MEDS ORDERED: IBUP800T25 PO (14:32)
[2017-05-29] MEDS ORDERED: ZOLP10TA5 PO (14:32)
[2017-05-29 14:43] VITALS: Ht 167.6 cm; Wt 81.1 kg
[2017-05-29 16:00] VITALS: PULSE 61
[2017-05-29] MEDS: morphine 4 MG/ML VIAL IV PRN (16:00)
--- NOTE | 2017-05-29 16:06 | HP ---
Date/Time of Note Date/Time of Note DATE: 05/29/17 TIME: 15:56 Assessment/Plan VTE Prophylaxis VTE Prophylaxis Intervention: SCD's Assessment/Plan Chief Complaint/Hosp Course Impression and plan 1. Intraparenchymal hemorrhage. Brain CT did show right frontal parenchymal hematoma measuring 16 x 11 mm with minimal associated mass-effect and no midline shift. Neurosurgery was already consulted. Follow-up on repeat CT scan of the brain. Continue neuro checks. Monitor electrolytes and hemodynamics 2. Right maxillary and periorbital suspect cellulitis. Patient started on antibiotics for now. Will consult uniform room attendant. 3. Cystic lesion in the left maxillary alveolar ridge measuring 1.4 x 2.1 cm with involvement of the root of the left first maxillary incisor. Patient reports that he had possible abscess after his dental procedure which was prior to his recent fall. On antibiotics for now. Discussed with ENT (Dr. Giovany John) . Patient will need oral and maxillofacial surgeon as outpatient 4. Essential hypertension. Patient to be resumed on his antihypertensive medications. Will adjust as needed. 5. History of dyslipidemia. Follow-up on fasting lipid panel. 6. History of sciatica. Continue with analgesics Admission process time is greater than 40 minutes Discussed plan of care with Dr. Cartagena 4. Problems: HPI/ROS Admit Date/Time Admit Date/Time May 29, 2017 at 12:36 Hx of Present Illness This is a 56-year-old male with history of sciatica as well as hypertension, neuropathy, dyslipidemia, who came to [facility] after reportedly suffering from a mechanical fall roughly around the date of May 25, 2017 (per patient may have also occurred on May 24, 2017). Patient did report that he was watering his garden when he tripped over the hose and fell on the right side of his face. He denies any loss of consciousness. He did report since the fall his face increasingly gotten worse with swelling and some erythema. Particularly on the right side has he also reports that he had a recent dental procedure done prior to this fall and that he may have swelling from that reason as well. Due to worsening of symptoms and also now reported difficulty with balance and coordination he subsequently went to [facility] for further evaluation. Upon examination he had a brain CT scan that did show a right frontal parenchymal hematoma measuring 16 x 11 mm with minimal associated mass-effect and no midline shift. There is also seen mild intracranial vascular calcification. Additionally for his face we did get a facial CT that showed no evidence for acute fracture dislocation but there was seen a cystic lesion in the left maxillary alveolar ridge, 1.4 x 2.1 cm with involvement of the root of the left first maxillary incisor which was seen to be absent. Differentials per report for this may be seen as odontogenic keratocyst versus periapical cyst or ameloblastoma. There is also seen right premalar and periorbital soft tissue swelling consistent with contusion or cellulitis. On physical exam patient was seen with a moderate amount of edema as well as erythema on right maxillary area that extended to periorbital area of the right side. He was seen to be slightly anemic per CBC with hemoglobin of 12.4 and hematocrit of 39.2. BMP otherwise unremarkable. Vital signs remained stable and no fever was seen. No leukocytosis seen either. We will evaluate him for the aformentiond issues. ROS 12 point review of systems obtained and entirely negative except that mentioned in the history of present PMH/Family/Social Past Medical History Medical/surgical history sciatica as well as hypertension, neuropathy, dyslipidemia Family History Significant Family History: no pertinent family hx Social History Alcohol Use: none Smoking Status: Current some day smoker (3 cigarettes/day) Drug Use: none Exam/Review of Systems Vital Signs Vitals Vital Signs Date Time Temp Pulse Resp B/P Pulse Ox O2 Delivery O2 Flow Rate FiO2 05/29/17 14:00 97.9 62 17 113/79 100 Room Air Exam Constitutional: alert, oriented Psych: nl mood/affect Head: other (Swelling seen on right maxillary area that extends to periorbital area of the right side.) Eyes: icteric (Minimally) Respiratory: clear to auscultation Cardiovascular: nl pulses, regular rate and rhythm Gastrointestinal: non-tender, soft Musculoskeletal: No muscle weakness Neurological: nl mental status, nl speech Skin: other (Erythema and swelling seen on right maxillary area) Labs Result Diagram: 05/29/17 1215 05/29/17 1215 Medications Medications Current Medications Sodium Chloride (NS) 1,000 ml @ 80 mls/hr [id number] IV Last administered on t 15:45; Admin Dose 80 MLS/HR; Start 05/29/17 at 12:33; Stop 05/30/17 at 01:02 Loratadine (Claritin) 10 mg DAILY PO ; Start 05/30/17 at 09:00 Sodium Chloride ([place]) 1 spray DAILY NASAL ; Start 05/29/17 at 13:30 Ondansetron HCl (Zofran Inj) 4 mg Q6H PRN IV NAUSEA AND/OR VOMITING; Start 05/29 at 13:00 Acetaminophen (Tylenol Tab) 650 mg Q6H PRN PO PAIN LEVEL 1-3 OR FEVER; Start at 13:00 Acetaminophen (Tylenol Supp) 650 mg Q6H PRN [place] PAIN LEVEL 1-3 OR FEVER; Start 05/29/17 at 13:00 Acetaminophen/ Hydrocodone Bitart ([place] (5/325)) 1 tab Q6H PRN PO MODERATE PAIN LEVEL 4-6; Start 05/29/17 at 13:00 Acetaminophen/ Hydrocodone Bitart ([place] (5/325)) 2 tab Q6H PRN PO SEVERE PAIN LEVEL 7-10; Start 05/29/17 at 13:00 Morphine Sulfate (morphine) 2 mg Q4H PRN IV SEVERE PAIN LEVEL 7-10; Start at 13:00 Docusate Sodium (Colace) 100 mg Q12H PRN PO CONSTIPATION; Start 05/29/17 at 13: 00 Magnesium Hydroxide (Milk Of Mag) 30 ml DAILY PRN PO CONSTIPATION; Start at 13:00 Bisacodyl (Dulcolax Supp) 10 mg DAILY PRN [place] CONSTIPATION; Start 05/29/17 at 13: 00 Famotidine (Pepcid) 20 mg Q12 PO ; Start 05/29/17 at 21:00 Alprazolam (Xanax) 2 mg BID PRN PO ANXIETY; Start 05/29/17 at 16:00 Carisoprodol (Soma) 350 mg BID PRN PO MUSCLE SPASMS; Start 05/29/17 at 16:00 Diphenhydramine HCl (Benadryl) 50 mg Q6H PRN PO ITCHING; Start 05/29/17 at 16:00 Lisinopril (Zestril) 20 mg BID PO ; Start 05/29/17 at 21:00 Zolpidem Tartrate (Ambien) 10 mg QHS PRN PO INSOMNIA; Start 05/29/17 at 16:00 KIARRA GUERRA May 29, 2017 16:06
[2017-05-29] MEDS: ALPRAZOLAM 1 MG TAB PO PRN (17:47)
[2017-05-29] MEDS: CLINDAMYCIN 600 MG/D5W (PMX) 50 ML IVPB SCH (17:49)
[2017-05-29] MEDS ORDERED: Saccharomyces Boulardii PO (17:51)
--- NOTE | 2017-05-29 19:34 | CONS ---
Date/Time of Note Date/Time of Note DATE: 05/29/17 TIME: 19:31 Consultation Date/Type/Reason Admit Date/Time May 29, 2017 at 12:36 Date of Consultation: May 29, 2017 Type of Consultation: ID Reason for Consultation Antibiotic management for facial cellulitis.Pt. placed on Clindamycin, which is a good choice, Psychological: nl mood/affect Social History Alcohol Use: none Smoking Status: Current some day smoker (3 cigarettes/day) Drug Use: none Exam/Review of Systems Vital Signs Vitals Vital Signs Date Time Temp Pulse Resp B/P Pulse Ox O2 Delivery O2 Flow Rate FiO2 05/29/17 16:00 61 05/29/17 14:00 97.9 17 113/79 100 Room Air Results Result Diagram: 05/29/17 1215 05/29/17 1215 Results 24 hrs Laboratory Tests Test 05/29/17 12:15 White Blood Count 6.5 Red Blood Count 4.24 L Hemoglobin 12.4 L Hematocrit 39.2 L Mean Corpuscular Volume 92.5 Mean Corpuscular Hemoglobin 29.2 Mean Corpuscular Hemoglobin Concent 31.6 L Red Cell Distribution Width 12.8 Platelet Count 282 Mean Platelet Volume 8.4 Neutrophils % 62.1 Lymphocytes % 16.4 Monocytes % 8.4 Eosinophils % 12.0 H Basophils % 0.8 Nucleated Red Blood Cells % 0.0 Neutrophils # 4.1 Lymphocytes # 1.1 Monocytes # 0.6 Eosinophils # 0.8 H Basophils # 0.1 Nucleated Red Blood Cells # 0.0 Prothrombin Time 12.1 L Prothrombin Time Ratio 0.9 INR International Normalized Ratio 0.90 Activated Partial Thromboplast Time 30.6 Sodium Level 140 Potassium Level 4.2 Chloride Level 101 Carbon Dioxide Level 26 Anion Gap 17 H Blood Urea Nitrogen 13 Creatinine 1.01 Glucose Level 82 Calcium Level 9.2 Medications Medications Current Medications Sodium Chloride (NS) 1,000 ml @ 80 mls/hr [id number] IV Last administered on t 15:45; Admin Dose 80 MLS/HR; Start 05/29/17 at 12:33; Stop 05/30/17 at 01:02 Loratadine (Claritin) 10 mg DAILY PO ; Start 05/30/17 at 09:00 Sodium Chloride ([place]) 1 spray DAILY NASAL ; Start 05/29/17 at 13:30 Ondansetron HCl (Zofran Inj) 4 mg Q6H PRN IV NAUSEA AND/OR VOMITING; Start 05/29 at 13:00 Acetaminophen (Tylenol Tab) 650 mg Q6H PRN PO PAIN LEVEL 1-3 OR FEVER; Start at 13:00 Acetaminophen (Tylenol Supp) 650 mg Q6H PRN [place] PAIN LEVEL 1-3 OR FEVER; Start 05/29/17 at 13:00 Acetaminophen/ Hydrocodone Bitart ([place] (5/325)) 1 tab Q6H PRN PO MODERATE PAIN LEVEL 4-6; Start 05/29/17 at 13:00 Acetaminophen/ Hydrocodone Bitart ([place] (5/325)) 2 tab Q6H PRN PO SEVERE PAIN LEVEL 7-10; Start 05/29/17 at 13:00 Morphine Sulfate (morphine) 2 mg Q4H PRN IV SEVERE PAIN LEVEL 7-10 Last administered on 05/29/17 16:00; Admin Dose 2 MG; Start 05/29/17 at 13:00 Docusate Sodium (Colace) 100 mg Q12H PRN PO CONSTIPATION; Start 05/29/17 at 13: 00 Magnesium Hydroxide (Milk Of Mag) 30 ml DAILY PRN PO CONSTIPATION; Start at 13:00 Bisacodyl (Dulcolax Supp) 10 mg DAILY PRN [place] CONSTIPATION; Start 05/29/17 at 13: 00 Famotidine (Pepcid) 20 mg Q12 PO ; Start 05/29/17 at 21:00 Alprazolam (Xanax) 2 mg BID PRN PO ANXIETY Last administered on 05/29/17 17:47 ; Admin Dose 2 MG; Start 05/29/17 at 16:00 Carisoprodol (Soma) 350 mg BID PRN PO MUSCLE SPASMS; Start 05/29/17 at 16:00 Diphenhydramine HCl (Benadryl) 50 mg Q6H PRN PO ITCHING; Start 05/29/17 at 16:00 Lisinopril (Zestril) 20 mg BID PO ; Start 05/29/17 at 21:00 Zolpidem Tartrate 10 mg 10 mg QHS PRN PO INSOMNIA; Start 05/29/17 at 16:00 Clindamycin HCl/ Dextrose (Cleocin 600 Mg/ D5W (Pmx)) 50 ml @ 50 mls/hr Q6 IVPB Last administered on 05/29/17t 17:49; Admin Dose 50 MLS/HR; Start 05/29/17 at 18 :00 Saccharomyces Boulardii (Florastor) 250 mg BID PO ; Start 05/29/17 at 21:00 SHARON CHARLES MD May 29, 2017 19:34
[2017-05-29 20:00] VITALS: BP 128/71; RESP 20
[2017-05-29 20:41] VITALS: PULSE 62
[2017-05-29] MEDS: LISINOPRIL 20 MG TAB PO SCH (21:00)
[2017-05-29] MEDS: HYDROCODONE/APAP (5/325) TAB PO PRN (21:06)
[2017-05-29] MEDS: SACCHAROMYCES BOULARDII 250 MG CAP PO SCH (21:06)
[2017-05-29] MEDS: FAMOTIDINE 20 MG TAB PO SCH (21:06)
[2017-05-29] MEDS: CARISOPRODOL 350 MG TAB PO PRN (22:45)
[2017-05-29] MEDS: ZOLPIDEM 5 MG TAB PO PRN (22:46)
[2017-05-30] VITALS (12 sets, daily range): BP systolic 93–142; BP diastolic 54–83; PULSE 54–75; RESP 15–20
[2017-05-30] MEDS: CLINDAMYCIN 600 MG/D5W (PMX) 50 ML IVPB SCH ×5 (00:01→23:47)
[2017-05-30] MEDS: HYDROCODONE/APAP (5/325) TAB PO PRN ×3 (03:55→23:51)
[2017-05-30] MEDS: DIPHENHYDRAMINE 50 MG CAP PO PRN ×2 (03:55→19:29)
--- NOTE | 2017-05-30 05:58 | CONS ---
DATE OF ADMISSION: 05/29/2017 DATE OF CONSULTATION: 05/29/2017 REASON FOR CONSULTATION: Antibiotic management. HISTORY OF PRESENT ILLNESS: Douglas Cordova is a 56-year-old male with a number of problems, who comes in now with an intraparenchymal hemorrhage and is being seen for antibiotic management. His past problems include: 1. Hypertension. 2. Peripheral neuropathy. 3. History of sciatica. 4. Dyslipidemia. The patient came to the [facility] after suffering a mechanical fall about 05/25/2017. It may have occurred on either 05/24/2017 or 05/25/2017. He tripped on a watering hose when he was watering his garden, fell on the right side of his face. He denies loss of consciousness. His face has become increasingly swollen and erythematous on the right side. He had a recent dental procedure done prior to this fall. Due to worsening symptoms and difficulty with balance and coordination, he came to the emergency room where CT scan of the brain showed a right frontal parenchymal hematoma measuring 16 x 11 mm with minimal associated mass effect and no midline shift. There is also seen mild intracranial vascular calcifications. He had a facial CT which showed no evidence of fracture or dislocation. 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 There is also evidence of contusion and cellulitis. On admission, his white count was 6.5, hemoglobin and hematocrit of 12.4 and 39.2, platelet count 282,000. BUN and creatinine of 13 and 1.01. Glucose of 82. PAST MEDICAL HISTORY: Operations as outlined. FAMILY HISTORY: Noncontributory. SOCIAL HISTORY: He smokes 3 cigarettes a day. He does not drink or abuse drugs. ALLERGIES: NONE TO PENICILLIN, SULFA, OR FOODS. MEDICATION: Per chart. REVIEW OF SYSTEMS: As per HPI. PHYSICAL EXAMINATION: GENERAL: Patient is somewhat lethargic but arousable, in no acute distress. VITAL SIGNS: Stable. He is afebrile. SKIN: Without generalized rash. He has some redness on the right side of his face. HEENT: Otherwise he has some swelling in the right maxillary area that extends to the periorbital area on the right side. Mouth without pharyngeal exudate or injection. NECK: Supple. Lymph nodes nonpalpable. CHEST: Decreased breath sounds at the bases. HEART: Without murmur or gallop. ABDOMEN: Soft, nontender, without organo-splenomegaly or masses. EXTREMITIES: Without cyanosis, clubbing, or edema. RECTAL/GENITAL: Deferred. NEUROLOGIC: No focal neurological abnormalities. IMPRESSION AND PLAN: As noted, facial CT showed no evidence of acute fracture or dislocation. CT scan of the brain shows right frontal parenchymal hematoma and Neurosurgery has been called. Currently, patient was placed on clindamycin 600 mg q.6 h. This will cover anaerobes as well as methicillin-resistant staph and is a reasonable choice, although the cellulitis is not that impressive. He will be seen by Neurosurgery. I doubt that he will need any kind of intervention. I will dictate my findings to the hospitalist. Dictated By: Jesus Manuel Webster MD JD/[email or web address]/jama /Document#: [id number]
[2017-05-30 06:43] LABS: BASOPHIL # 0.1 10^3/ul (0.0-0.1); BASOPHILS % 0.8 % (0.0-2.0); EOSINOPHILS # 0.9 10^3/ul (0.0-0.5); EOSINOPHILS % 14.2 % (0.0-7.0); HEMATOCRIT 36.6 % (42.0-52.0); HEMOGLOBIN 11.8 g/dl (14.0-18.0); LYMPHOCYTES # 1.3 10^3/ul (0.8-2.9); LYMPHOCYTES % 22.2 % (15.0-51.0); MEAN CORPUSCULAR HEMOGLOBIN 29.7 pg (29.0-33.0); MEAN CORPUSCULAR HGB CONC 32.2 g/dl (32.0-37.0); MEAN CORPUSCULAR VOLUME 92.2 fl (82.0-101.0); MEAN PLATELET VOLUME 8.4 fl (7.4-10.4); MONOCYTE # 0.5 10^3/ul (0.3-0.9); MONOCYTES % 7.5 % (0.0-11.0); NEUTROPHIL # 3.3 10^3/ul (1.6-7.5); PLATELET COUNT 266 10^3/UL (140-415); RED BLOOD COUNT 3.97 10^6/ul (4.70-6.10); RED CELL DISTRIBUTION WIDTH 12.5 % (11.5-14.5)
[2017-05-30 07:22] LABS: ALBUMIN 3.5 g/dl (3.3-4.9); ALBUMIN/GLOBULIN RATIO 1.34; BILIRUBIN,INDIRECT 0.1 mg/dl (0-1.1); BILIRUBIN,TOTAL 0.1 mg/dl (0.2-1.3); CALCIUM 8.9 mg/dl (8.4-10.2); CHOL/HDL RATIO 2.5 RATIO; CREATININE 0.78 mg/dl (0.61-1.24); MAGNESIUM 1.9 mg/dl (1.7-2.5); PHOSPHORUS 4.2 mg/dl (2.5-4.9); POTASSIUM 4.3 mmol/L (3.5-5.1); TOTAL PROTEIN 6.1 g/dl (6.1-8.1)
[2017-05-30 07:26] LABS: T3 UPTAKE 39.5 % (23.5-40.5)
[2017-05-30 07:40] LABS: THYROID STIMULATING HORMONE 0.849 MIU/L (0.465-4.680)
[2017-05-30] MEDS: SALINE 0.65% 45 ML NAS SPRAY NASAL SCH (07:56)
[2017-05-30] MEDS: SACCHAROMYCES BOULARDII 250 MG CAP PO SCH ×2 (07:57→20:54)
[2017-05-30] MEDS: FAMOTIDINE 20 MG TAB PO SCH ×2 (07:58→20:54)
[2017-05-30] MEDS: LORATADINE 10 MG TAB PO SCH (08:01)
[2017-05-30] MEDS: LISINOPRIL 20 MG TAB PO SCH ×2 (09:00→20:48)
--- NOTE | 2017-05-30 10:45 | RADRPT ---
PROCEDURE: CT Brain without contrast. CLINICAL INDICATION: History of intracranial hemorrhage. Facial swelling. TECHNIQUE: A CT of the brain without contrast was performed utilizing axial sections from the skul l base through the vertex. The patient was scanned without intravenous contrast enhancement. [place] l and coronal reformatted images were obtained using the data from the axial images. Total exam DLP is 630.20 mGy-cm. CTDIvol is 43.95 mGy. One or more of the following dose reduction techniques we re used: Automated exposure control, adjustment of the mA and/or kV according to patient size, use o f iterative reconstruction technique. COMPARISON: 05/29/2017. FINDINGS: There is normal aquino-white matter differentiation. There is mild enlargement of the ventricles consistent with atrophy. As seen previously, there is an acute hematoma in the right frontal lobe anteriorly measuring approx imately 1.3 x 1.0 cm, unchanged. There is mild surrounding edema and minimal mass effect. There is no other intracranial hemorrhage or space-occupying lesion. There is no midline shift. The basal cisterns are intact. There is no skull fracture or lytic lesion. IMPRESSION: 1. Stable appearance of small right frontal hematoma. 2. Mild atrophy. 3. No other from 05/29/2017. RPTAT: QQ .Fabien French MD, MD Date Time Electronically viewed and signed by .Fabien French MD, on 05/30/2017 10:45 .R/
[2017-05-30] MEDS: ALPRAZOLAM 1 MG TAB PO PRN (13:25)
[2017-05-30] MEDS: CARISOPRODOL 350 MG TAB PO PRN (13:27)
--- NOTE | 2017-05-30 14:05 | PN ---
Date/Time of Note Date/Time of Note DATE: 05/30/17 TIME: 14:00 Assessment/Plan VTE Prophylaxis VTE Prophylaxis Intervention: SCD's Assessment/Plan Chief Complaint/Hosp Course Impression and plan 1. Intraparenchymal hemorrhage. Brain CT did show right frontal parenchymal hematoma measuring 16 x 11 mm with minimal associated mass-effect and no midline shift. Neurosurgery was already consulted. Repeat CT scan of the brain shows stable appearance of small right frontal hematoma. Continue neuro checks. 2. Right maxillary and periorbital suspect cellulitis. Patient started on antibiotics for now. Pearl Maker consulted. Continue recommendations. 3. Cystic lesion in the left maxillary alveolar ridge measuring 1.4 x 2.1 cm with involvement of the root of the left first maxillary incisor. Patient reports that he had possible abscess after his dental procedure which was prior to his recent fall. On antibiotics for now. Discussed with ENT (Dr. Giovany John) . Patient will need oral and maxillofacial surgeon as outpatient 4. Essential hypertension. Patient to be resumed on his antihypertensive medications. Will adjust as needed. 5. History of dyslipidemia. Follow-up on fasting lipid panel. 6. History of sciatica. Continue with analgesics Disposition plan: Continue with antibiotics. Monitor for clinical improvement. Will get physical therapy to follow. Follow-up with neurosurgeon recommendations. Discussed plan of care with Dr. Cartagena Problems: Subjective 24 Hr Interval Summary Free Text/Dictation no s/s of distress Exam/Review of Systems Vital Signs Vitals Vital Signs Date Time Temp Pulse Resp B/P Pulse Ox O2 Delivery O2 Flow Rate FiO2 05/30/17 12:00 63 05/30/17 11:47 98.3 18 103/62 96 05/29/17 14:00 Room Air Intake and Output 05/29/17 05/29/17 05/30/17 15:00 23:00 07:00 Intake Total 100 ml 350 ml 750 ml Output Total 550 ml 1500 ml Balance 100 ml -200 ml -750 ml Exam Constitutional: alert, oriented, little anxious Psych: nl mood/affect Head: other (Swelling seen on right maxillary area that extends to periorbital area of the right side.) Eyes: icteric (Minimally) Respiratory: clear to auscultation Cardiovascular: nl pulses, regular rate and rhythm Gastrointestinal: non-tender, soft Musculoskeletal: No muscle weakness Neurological: nl mental status, nl speech Skin: other (Erythema and swelling seen on right maxillary area) Results Result Diagram: 05/30/17 0628 05/30/17 0628 Results 24 hrs Laboratory Tests Test 05/30/17 06:28 White Blood Count 6.0 Red Blood Count 3.97 L Hemoglobin 11.8 L Hematocrit 36.6 L Mean Corpuscular Volume 92.2 Mean Corpuscular Hemoglobin 29.7 Mean Corpuscular Hemoglobin Concent 32.2 Red Cell Distribution Width 12.5 Platelet Count 266 Mean Platelet Volume 8.4 Neutrophils % 55.0 Lymphocytes % 22.2 Monocytes % 7.5 Eosinophils % 14.2 H Basophils % 0.8 Nucleated Red Blood Cells % 0.0 Neutrophils # 3.3 Lymphocytes # 1.3 Monocytes # 0.5 Eosinophils # 0.9 H Basophils # 0.1 Nucleated Red Blood Cells # 0.0 Sodium Level 140 Potassium Level 4.3 Chloride Level 102 Carbon Dioxide Level 26 Anion Gap 16 Blood Urea Nitrogen 14 Creatinine 0.78 Glucose Level 94 Hemoglobin A1c 5.4 Calcium Level 8.9 Phosphorus Level 4.2 Magnesium Level 1.9 Total Bilirubin 0.1 L Direct Bilirubin 0.00 Indirect Bilirubin 0.1 Aspartate Amino Transf (AST/SGOT) 22 Alanine Aminotransferase (ALT/SGPT) 28 Alkaline Phosphatase 59 Total Protein 6.1 Albumin 3.5 Globulin 2.60 Albumin/Globulin Ratio 1.34 Triglycerides Level 136 Cholesterol Level 140 LDL Cholesterol, Calculated 58 HDL Cholesterol 55 Cholesterol/HDL Ratio 2.5 Thyroid Stimulating Hormone (TSH) 0.849 Free Thyroxine Index 2.21 Thyroxine (T4) 5.6 Triiodothyronine (T3) Uptake 39.5 Medications Medications Current Medications Loratadine (Claritin) 10 mg DAILY PO Last administered on 05/30/17 08:01; Admin Dose 10 MG; Start 05/30/17 at 09:00 Sodium Chloride ([place]) 1 spray DAILY NASAL Last administered on 05/30/17 07 :56; Admin Dose 1 SPRAY; Start 05/29/17 at 13:30 Ondansetron HCl (Zofran Inj) 4 mg Q6H PRN IV NAUSEA AND/OR VOMITING; Start 05/29 at 13:00 Acetaminophen (Tylenol Tab) 650 mg Q6H PRN PO PAIN LEVEL 1-3 OR FEVER; Start at 13:00 Acetaminophen (Tylenol Supp) 650 mg Q6H PRN [place] PAIN LEVEL 1-3 OR FEVER; Start 05/29/17 at 13:00 Acetaminophen/ Hydrocodone Bitart ([place] (5/325)) 1 tab Q6H PRN PO MODERATE PAIN LEVEL 4-6; Start 05/29/17 at 13:00 Acetaminophen/ Hydrocodone Bitart ([place] (5/325)) 2 tab Q6H PRN PO SEVERE PAIN LEVEL 7-10 Last administered on 05/30/17 03:55; Admin Dose 2 TAB; Start 05/29/17 at 13:00 Morphine Sulfate (morphine) 2 mg Q4H PRN IV SEVERE PAIN LEVEL 7-10 Last administered on 05/29/17 16:00; Admin Dose 2 MG; Start 05/29/17 at 13:00 Docusate Sodium (Colace) 100 mg Q12H PRN PO CONSTIPATION; Start 05/29/17 at 13: 00 Magnesium Hydroxide (Milk Of Mag) 30 ml DAILY PRN PO CONSTIPATION; Start at 13:00 Bisacodyl (Dulcolax Supp) 10 mg DAILY PRN [place] CONSTIPATION; Start 05/29/17 at 13: 00 Famotidine (Pepcid) 20 mg Q12 PO Last administered on 05/30/17 07:58; Admin Dose 20 MG; Start 05/29/17 at 21:00 Alprazolam (Xanax) 2 mg BID PRN PO ANXIETY Last administered on 05/30/17 13:25 ; Admin Dose 2 MG; Start 05/29/17 at 16:00 Carisoprodol (Soma) 350 mg BID PRN PO MUSCLE SPASMS Last administered on 13:27; Admin Dose 350 MG; Start 05/29/17 at 16:00 Diphenhydramine HCl (Benadryl) 50 mg Q6H PRN PO ITCHING Last administered on 03:55; Admin Dose 50 MG; Start 05/29/17 at 16:00 Lisinopril (Zestril) 20 mg BID PO ; Start 05/29/17 at 21:00 Zolpidem Tartrate 10 mg 10 mg QHS PRN PO INSOMNIA Last administered on 22:46; Admin Dose 10 MG; Start 05/29/17 at 16:00 Clindamycin HCl/ Dextrose (Cleocin 600 Mg/ D5W (Pmx)) 50 ml @ 50 mls/hr Q6 IVPB Last administered on 05/30/17 13:26; Admin Dose 50 MLS/HR; Start 05/29/17 at 18 :00 Saccharomyces Boulardii (Florastor) 250 mg BID PO Last administered on 07:57; Admin Dose 250 MG; Start 05/29/17 at 21:00 KIARRA GUERRA May 30, 2017 14:04
--- NOTE | 2017-05-30 18:44 | CONS ---
DATE OF ADMISSION: 05/29/2017 DATE OF CONSULTATION: 05/30/2017 HISTORY OF PRESENT ILLNESS: This 56-year-old patient is seen in consultation after sustaining an injury to his face and head in a trip and fall injury on 05/25/2017. The patient states that he tripped over a water hose while he was attempting to water the grass at his home. He fell and struck the right side of his face and his head. He denies any loss of consciousness. Subsequently, the patient over the next few days noted swelling of the right cheek area with some discomfort. He was seen and admitted through the emergency department on 05/29/2017 with a diagnosis of facial cellulitis, and in the emergency room a CT scan of the brain noted a right frontal parenchymal hematoma with no shift noted in the brain. The patient also had facial CT scan, which did not reveal the presence of any facial fractures. The patient denies prior history of eye disease or injury. PHYSICAL EXAMINATION: HEENT: The visual acuity without correction is 20/40 in the right eye and 20/50 in the left eye. External examination reveals erythema and edema of the right lower lid extending to the right cheek. There is some minimal erythema of the right upper lid. The patient has a secondary pseudoptosis of the right upper lid, but is able to open the lid when being asked to forcibly do so. The extraocular movement is full. There does not appear to be any restrictions in the right eye. The pupil of each eye is 4 cm round and reactive to light. The anterior segment of the right eye does not show any evidence of inflammation of the anterior surface of the globe. There is no conjunctival hemorrhage. The cornea appears clear. The anterior chamber appears deep and clear. There is no evidence of a hyphema. Applanation tonometry is 12 mmHg in both eyes. Confrontation visual field testing appears full in both eyes. The pupil of each eye is dilated with Tropicamide 1 percent. Examination of the media does not reveal the presence of any vitreous hemorrhage or cataract formation. Examination of the retina reveals normal appearing optic disc with a cup to disc ratio of 0.4 in both eyes. Examination of the macula appears within normal limits. There is no evidence of commotion retinae in the right eye. The retinal vasculature appears intact with no evidence of retinal bleeding. Examination of the peripheral retina in the right eye does not reveal the presence of any retinal detachments. DIAGNOSIS: Contusion of the ocular adnexa, right eye. PLAN: The patient should be continued on the IV clindamycin until resolution of the cellulitis has occurred. No ophthalmic intervention is required at this time. Dictated By: Jose López MD /noé/ricki /Document#: [id number]
[2017-05-30] MEDS: morphine 4 MG/ML VIAL IV PRN (20:55)
[2017-05-30] MEDS: ZOLPIDEM 5 MG TAB PO PRN (20:55)
--- NOTE | 2017-05-30 22:13 | CONS ---
Date/Time of Note Date/Time of Note DATE: 05/30/17 TIME: 22:01 Assessment/Plan Assessment/Plan Chief Complaint/Hosp Course ID PROGRESS NOTE CURRENT ABX=> Clindamycin 24H INTERVAL SUMMARY * A/A/O, no fevers * Appreciate OPTH consult DX: DIAGNOSIS: Contusion of the ocular adnexa, right eye. No ophthalmic intervention is required at this time. * CT Brain 05/30 repeat: IMPRESSION: 1. Stable appearance of small right frontal hematoma. 2. Mild atrophy. 3. No other from 05/29/2017. EXAM GENERAL: A/A/0, afebrile, VSS HEENT: Right side facial edema, w/right pre-orbital/[place]-orbital edema NECK: (Supple CHEST: Rise symmetrical without dyspnea on observation ABDOMEN: Soft, EXTREMITIES: Warm, moves extremities SKIN: Tattoos ID ASSESSMENT: 56 yo M s/p mechanical fall at home in his yard where he hit his R-side face/ head on grass or concrete admit with: 1. Intraparenchymal hemorrhage. * Brain CT did show right frontal parenchymal hematoma measuring 16 x 11 mm with minimal associated mass-effect and no midline shift. * Neurosurgery was already consulted. Repeat CT scan of the brain shows stable appearance of small right frontal hematoma. 2. Right maxillary and periorbital suspect cellulitis. 3. Contusion of the ocular adnexa, right eye. No ophthalmic intervention is required at this time=>Per ophthalmology consult 05/30/17 4. Cystic lesion in the left maxillary alveolar ridge measuring 1.4 x 2.1 cm with involvement of the root of the left first maxillary incisor. * Patient reports that he had possible abscess after his dental procedure which was prior to his recent fall. On antibiotics for now. * Per notes=> Patient to follow up with oral and maxillofacial surgeon as outpatient 5. Essential hypertension. 6. History of sciatica. INVASIVES: PIV ABX ALLERGY: KNDA CURRENT ABX: Clinda IV ID PLAN 1. The patient should be continued on the IV clindamycin until resolution of the cellulitis has occurred = per ophthalmology note. 2. Check nares for MRSA 3. Will discuss ABX IV switch to PO with Dr. Webster to inquire if that is an option, given ophthalmology note; alternative is to send patient out with IV ABX with . . Problems: Consultation Date/Type/Reason Admit Date/Time May 29, 2017 at 12:36 Initial Consult Date 05/29/17 Type of Consultation: ID Exam/Review of Systems Vital Signs Vitals Vital Signs Date Time Temp Pulse Resp B/P Pulse Ox O2 Delivery O2 Flow Rate FiO2 05/30/17 20:17 75 05/30/17 19:57 98.3 15 99/54 97 05/29/17 14:00 Room Air Intake and Output 05/29/17 05/29/17 05/30/17 15:00 23:00 07:00 Intake Total 100 ml 350 ml 750 ml Output Total 550 ml 1500 ml Balance 100 ml -200 ml -750 ml Results Result Diagram: 05/30/17 0628 05/30/17 0628 Results 24 hrs Laboratory Tests Test 05/30/17 06:28 White Blood Count 6.0 Red Blood Count 3.97 L Hemoglobin 11.8 L Hematocrit 36.6 L Mean Corpuscular Volume 92.2 Mean Corpuscular Hemoglobin 29.7 Mean Corpuscular Hemoglobin Concent 32.2 Red Cell Distribution Width 12.5 Platelet Count 266 Mean Platelet Volume 8.4 Neutrophils % 55.0 Lymphocytes % 22.2 Monocytes % 7.5 Eosinophils % 14.2 H Basophils % 0.8 Nucleated Red Blood Cells % 0.0 Neutrophils # 3.3 Lymphocytes # 1.3 Monocytes # 0.5 Eosinophils # 0.9 H Basophils # 0.1 Nucleated Red Blood Cells # 0.0 Sodium Level 140 Potassium Level 4.3 Chloride Level 102 Carbon Dioxide Level 26 Anion Gap 16 Blood Urea Nitrogen 14 Creatinine 0.78 Glucose Level 94 Hemoglobin A1c 5.4 Calcium Level 8.9 Phosphorus Level 4.2 Magnesium Level 1.9 Total Bilirubin 0.1 L Direct Bilirubin 0.00 Indirect Bilirubin 0.1 Aspartate Amino Transf (AST/SGOT) 22 Alanine Aminotransferase (ALT/SGPT) 28 Alkaline Phosphatase 59 Total Protein 6.1 Albumin 3.5 Globulin 2.60 Albumin/Globulin Ratio 1.34 Triglycerides Level 136 Cholesterol Level 140 LDL Cholesterol, Calculated 58 HDL Cholesterol 55 Cholesterol/HDL Ratio 2.5 Thyroid Stimulating Hormone (TSH) 0.849 Free Thyroxine Index 2.21 Thyroxine (T4) 5.6 Triiodothyronine (T3) Uptake 39.5 Medications Medications Current Medications Loratadine (Claritin) 10 mg DAILY PO Last administered on 05/30/17 08:01; Admin Dose 10 MG; Start 05/30/17 at 09:00 Sodium Chloride (Deep Sea) 1 spray DAILY NASAL Last administered on 05/30/17 07 :56; Admin Dose 1 SPRAY; Start 05/29/17 at 13:30 Ondansetron HCl (Zofran Inj) 4 mg Q6H PRN IV NAUSEA AND/OR VOMITING; Start 05/29 at 13:00 Acetaminophen (Tylenol Tab) 650 mg Q6H PRN PO PAIN LEVEL 1-3 OR FEVER; Start at 13:00 Acetaminophen (Tylenol Supp) 650 mg Q6H PRN [place] PAIN LEVEL 1-3 OR FEVER; Start 05/29/17 at 13:00 Acetaminophen/ Hydrocodone Bitart ([place] (5/325)) 1 tab Q6H PRN PO MODERATE PAIN LEVEL 4-6; Start 05/29/17 at 13:00 Acetaminophen/ Hydrocodone Bitart ([place]arshaw (5/325)) 2 tab Q6H PRN PO SEVERE PAIN LEVEL 7-10 Last administered on 05/30/17 17:44; Admin Dose 2 TAB; Start 05/29/17 at 13:00 Morphine Sulfate (morphine) 2 mg Q4H PRN IV SEVERE PAIN LEVEL 7-10 Last administered on 05/30/17 20:55; Admin Dose 2 MG; Start 05/29/17 at 13:00 Docusate Sodium (Colace) 100 mg Q12H PRN PO CONSTIPATION; Start 05/29/17 at 13: 00 Magnesium Hydroxide (Milk Of Mag) 30 ml DAILY PRN PO CONSTIPATION; Start at 13:00 Bisacodyl (Dulcolax Supp) 10 mg DAILY PRN [place] CONSTIPATION; Start 05/29/17 at 13: 00 Famotidine (Pepcid) 20 mg Q12 PO Last administered on 05/30/17 20:54; Admin Dose 20 MG; Start 05/29/17 at 21:00 Alprazolam (Xanax) 2 mg BID PRN PO ANXIETY Last administered on 05/30/17 13:25 ; Admin Dose 2 MG; Start 05/29/17 at 16:00 Carisoprodol (Soma) 350 mg BID PRN PO MUSCLE SPASMS Last administered on 13:27; Admin Dose 350 MG; Start 05/29/17 at 16:00 Diphenhydramine HCl (Benadryl) 50 mg Q6H PRN PO ITCHING Last administered on 19:29; Admin Dose 50 MG; Start 05/29/17 at 16:00 Lisinopril (Zestril) 20 mg BID PO ; Start 05/29/17 at 21:00 Zolpidem Tartrate 10 mg 10 mg QHS PRN PO INSOMNIA Last administered on 20:55; Admin Dose 10 MG; Start 05/29/17 at 16:00 Clindamycin HCl/ Dextrose (Cleocin 600 Mg/ D5W (Pmx)) 50 ml @ 50 mls/hr Q6 IVPB Last administered on 05/30/17 17:44; Admin Dose 50 MLS/HR; Start 05/29/17 at 18 :00 Saccharomyces Boulardii (Florastor) 250 mg BID PO Last administered on 20:54; Admin Dose 250 MG; Start 05/29/17 at 21:00 LISSA LYONS NP May 30, 2017 22:11
[2017-05-31] VITALS (12 sets, daily range): BP systolic 94–122; BP diastolic 52–83; PULSE 53–87; RESP 15–18
[2017-05-31] MEDS: ALPRAZOLAM 1 MG TAB PO PRN ×2 (02:08→21:24)
[2017-05-31] MEDS: CARISOPRODOL 350 MG TAB PO PRN ×2 (02:08→16:10)
[2017-05-31] MEDS: morphine 4 MG/ML VIAL IV PRN (02:15)
[2017-05-31] MEDS: CLINDAMYCIN 600 MG/D5W (PMX) 50 ML IVPB SCH ×3 (05:45→18:21)
[2017-05-31] MEDS: FAMOTIDINE 20 MG TAB PO SCH ×2 (08:41→21:25)
[2017-05-31] MEDS: SALINE 0.65% 45 ML NAS SPRAY NASAL SCH (08:41)
[2017-05-31] MEDS: SACCHAROMYCES BOULARDII 250 MG CAP PO SCH ×2 (08:41→21:24)
[2017-05-31] MEDS: LORATADINE 10 MG TAB PO SCH (08:41)
[2017-05-31] MEDS: LISINOPRIL 20 MG TAB PO SCH ×2 (08:42→21:25)
--- NOTE | 2017-05-31 09:08 | CONS ---
Date/Time of Note Date/Time of Note DATE: 05/31/17 TIME: 09:08 Assessment/Plan Assessment/Plan Additional Assessment/Plan Date of consultation: 05/30/2017 Requesting physician: Dr. Latha Freeman in the emergency department Consulting service: Neurosurgery This is a 56-year-old male with past medical history significant for hypertension, neuropathy? (Unknown etiology), hyperlipidemia who apparently tripped over a garden hose while he was wearing his garden around 4-5 days ago. He landed on his face. He denies any loss of consciousness. The patient presented to the emergency department because of increased facial swelling on the right side as well as some difficulty with his balance. The patient also reports having had recent dental procedure and initially attributed to facial swelling to the procedure. The patient has not had any convulsions or seizures. Neurosurgery has been consulted After the patient received a CT of the head that showed an right frontal contusion. Past medical history: Please see above plus history of "sciatica" Family history: Noncontributory Review of systems: Please see above for pertinent positives or negatives, the patient denies blurriness of his vision, he denies diplopia, he denies weakness or numbness of his upper or lower extremities. Social history: The patient smokes several cigarettes a day. He denies use of alcoholic beverages or use of illicit or recreational drugs. Physical examination: The patient is awake, alert and oriented 4. The patient has right-sided facial and periorbital edema. His tongue is midline. It is difficult for the patient to open his right eye secondary to the edema. The left pupil is 3 to 2 mm. Muscle bulk and tone is normal bilateral upper and lower extremities. Motor strength is 5 minus out of 5 bilateral upper and lower extremities. The patient's language seems to be fluent. Sensation to light touch is grossly normal bilateral upper and lower extremities. Gait testing has been deferred per patient request. There is no dysmetria. Imaging: The patient has received a CT of the head as well as a follow-up CT head shows a small right frontal contusion without significant local mass effect or right to left midline shift. Basal cisterns are open. There is no evidence of hydrocephalus. Assessment/plan: This is a middle-aged male status post a mechanical fall several days ago he presented to the hospital for increased facial swelling and some imbalance. The patient was subsequently found to have a small stable right frontal contusion that is most likely traumatic in nature given the mechanism of the patient's fall. The patient has also been diagnosed with facial cellulitis and has already been evaluated by infectious disease and put on antibiotics. There is no acute neurosurgical intervention indicated. The patient should avoid antiplatelet or anticoagulation medications for at least the next 30-60 days. The patient can follow-up with neurosurgery on an as- needed basis. The patient has not had any evidence of seizures or convulsions and therefore outpatient antiepileptic medication would not be warranted. SANDRA DALE MD May 31, 2017 09:08
[2017-05-31 09:18] LABS: BASOPHILS % 0.5 % (0.0-2.0); EOSINOPHILS # 0.9 10^3/ul (0.0-0.5); EOSINOPHILS % 14.4 % (0.0-7.0); HEMATOCRIT 39.2 % (42.0-52.0); HEMOGLOBIN 12.7 g/dl (14.0-18.0); LYMPHOCYTES # 1.6 10^3/ul (0.8-2.9); LYMPHOCYTES % 26.3 % (15.0-51.0); MEAN CORPUSCULAR HEMOGLOBIN 30.1 pg (29.0-33.0); MEAN CORPUSCULAR HGB CONC 32.4 g/dl (32.0-37.0); MEAN CORPUSCULAR VOLUME 92.9 fl (82.0-101.0); MEAN PLATELET VOLUME 8.4 fl (7.4-10.4); MONOCYTE # 0.5 10^3/ul (0.3-0.9); MONOCYTES % 7.6 % (0.0-11.0); NEUTROPHIL # 3.1 10^3/ul (1.6-7.5); NEUTROPHILS % 50.9 % (39.0-77.0); PLATELET COUNT 306 10^3/UL (140-415); RED BLOOD COUNT 4.22 10^6/ul (4.70-6.10); RED CELL DISTRIBUTION WIDTH 12.5 % (11.5-14.5); WHITE BLOOD COUNT 6.2 10^3/ul (4.8-10.8)
[2017-05-31 09:36] LABS: CALCIUM 9.2 mg/dl (8.4-10.2); CREATININE 0.94 mg/dl (0.61-1.24)
[2017-05-31] MEDS: HYDROCODONE/APAP (5/325) TAB PO PRN (12:50)
[2017-05-31] MEDS: DIPHENHYDRAMINE 50 MG CAP PO PRN ×2 (12:50→21:24)
--- NOTE | 2017-05-31 15:09 | PN ---
Date/Time of Note Date/Time of Note DATE: 05/31/17 TIME: 15:07 Assessment/Plan VTE Prophylaxis VTE Prophylaxis Intervention: SCD's Lines/Catheters IV C[facility]ter Type [facility]from [facility] Saline Lock Assessment/Plan Chief Complaint/Hosp Course Impression and plan 1. Intraparenchymal hemorrhage. Brain CT did show right frontal parenchymal hematoma measuring 16 x 11 mm with minimal associated mass-effect and no midline shift. Neurosurgery was already consulted. Repeat CT scan of the brain shows stable appearance of small right frontal hematoma. Continue neuro checks. Stable at present. No plan for surgical intervention. 2. Right maxillary and periorbital suspect cellulitis. Patient started on antibiotics for now. Cannery Worker consulted. No plan for ophthalmology intervention at this time. Continue recommendations. 3. Cystic lesion in the left maxillary alveolar ridge measuring 1.4 x 2.1 cm with involvement of the root of the left first maxillary incisor. Patient reports that he had possible abscess after his dental procedure which was prior to his recent fall. On antibiotics for now. Discussed with ENT (Dr. Giovany John) . Patient will need oral and maxillofacial surgeon as outpatient 4. Essential hypertension. Patient to be resumed on his antihypertensive medications. Will adjust as needed. 5. History of dyslipidemia. Follow-up on fasting lipid panel. 6. History of sciatica. Continue with analgesics Disposition plan: Continue with antibiotics. Less swelling noted on face. Continue to monitor. Discharge when medically stable and cleared by consultants. Pain management physician consulted Discussed plan of care with Dr. Cartagena Problems: Subjective 24 Hr Interval Summary Free Text/Dictation Reports less pain on right side of the face at this time. He is noted with less swelling as well Exam/Review of Systems Vital Signs Vitals Vital Signs Date Time Temp Pulse Resp B/P Pulse Ox O2 Delivery O2 Flow Rate FiO2 05/31/17 12:26 63 05/31/17 11:34 98.3 18 102/60 95 05/29/17 14:00 Room Air Intake and Output 05/30/17 05/30/17 05/31/17 15:00 23:00 07:00 Intake Total 1300 ml 550 ml Output Total 500 ml 1800 ml 950 ml Balance -500 ml -500 ml -400 ml Exam Constitutional: alert, Psych: nl mood/affect Head: other (Swelling seen on right maxillary area that extends to periorbital area of the right side less today.) Eyes: icteric (Minimally) Respiratory: clear to auscultation Cardiovascular: nl pulses, regular rate and rhythm Gastrointestinal: non-tender, soft Musculoskeletal: No muscle weakness Neurological: nl mental status, nl speech Skin: other (Erythema and swelling seen on right maxillary area, less today) Results Result Diagram: 05/31/17 0837 05/31/17 0837 Results 24 hrs Laboratory Tests Test 05/31/17 08:37 White Blood Count 6.2 Red Blood Count 4.22 L Hemoglobin 12.7 L Hematocrit 39.2 L Mean Corpuscular Volume 92.9 Mean Corpuscular Hemoglobin 30.1 Mean Corpuscular Hemoglobin Concent 32.4 Red Cell Distribution Width 12.5 Platelet Count 306 Mean Platelet Volume 8.4 Neutrophils % 50.9 Lymphocytes % 26.3 Monocytes % 7.6 Eosinophils % 14.4 H Basophils % 0.5 Nucleated Red Blood Cells % 0.0 Neutrophils # 3.1 Lymphocytes # 1.6 Monocytes # 0.5 Eosinophils # 0.9 H Basophils # 0.0 Nucleated Red Blood Cells # 0.0 Sodium Level 142 Potassium Level 4.0 Chloride Level 99 Carbon Dioxide Level 29 Anion Gap 18 H Blood Urea Nitrogen 16 Creatinine 0.94 Glucose Level 62 #L Calcium Level 9.2 Medications Medications Current Medications Loratadine (Claritin) 10 mg DAILY PO Last administered on 05/31/17 08:41; Admin Dose 10 MG; Start 05/30/17 at 09:00 Sodium Chloride (Deep Sea) 1 spray DAILY NASAL Last administered on 05/31/17 08 :41; Admin Dose 1 SPRAY; Start 05/29/17 at 13:30 Ondansetron HCl (Zofran Inj) 4 mg Q6H PRN IV NAUSEA AND/OR VOMITING; Start 05/29 at 13:00 Acetaminophen (Tylenol Tab) 650 mg Q6H PRN PO PAIN LEVEL 1-3 OR FEVER; Start at 13:00 Acetaminophen (Tylenol Supp) 650 mg Q6H PRN [place] PAIN LEVEL 1-3 OR FEVER; Start 05/29/17 at 13:00 Docusate Sodium (Colace) 100 mg Q12H PRN PO CONSTIPATION; Start 05/29/17 at 13: 00 Magnesium Hydroxide (Milk Of Mag) 30 ml DAILY PRN PO CONSTIPATION; Start at 13:00 Bisacodyl (Dulcolax Supp) 10 mg DAILY PRN [place] CONSTIPATION; Start 05/29/17 at 13: 00 Famotidine (Pepcid) 20 mg Q12 PO Last administered on 05/31/17 08:41; Admin Dose 20 MG; Start 05/29/17 at 21:00 Alprazolam (Xanax) 2 mg BID PRN PO ANXIETY Last administered on 05/31/17 02:08 ; Admin Dose 2 MG; Start 05/29/17 at 16:00 Carisoprodol (Soma) 350 mg BID PRN PO MUSCLE SPASMS Last administered on 02:08; Admin Dose 350 MG; Start 05/29/17 at 16:00 Diphenhydramine HCl (Benadryl) 50 mg Q6H PRN PO ITCHING Last administered on 12:50; Admin Dose 50 MG; Start 05/29/17 at 16:00 Lisinopril 20 mg 20 mg BID PO ; Start 05/29/17 at 21:00 Clindamycin HCl/ Dextrose (Cleocin 600 Mg/ D5W (Pmx)) 50 ml @ 50 mls/hr Q6 IVPB Last administered on 05/31/17 12:42; Admin Dose 50 MLS/HR; Start 05/29/17 at 18 :00 Saccharomyces Boulardii (Florastor) 250 mg BID PO Last administered on 08:41; Admin Dose 250 MG; Start 05/29/17 at 21:00 Tramadol HCl (Ultram) 100 mg Q6H PRN PO PAIN; Start 05/31/17 at 13:30 KIARRA GUERRA May 31, 2017 15:09
[2017-05-31] MEDS: traMADol 50 MG TAB PO PRN (15:27)
--- NOTE | 2017-05-31 15:39 | CONS ---
Date/Time of Note Date/Time of Note DATE: 05/31/17 TIME: 15:36 Assessment/Plan Assessment/Plan Chief Complaint/Hosp Course ID PROGRESS NOTE CURRENT ABX=> Clindamycin #2 24H INTERVAL SUMMARY * Resting comfortably, awakens easily == right facial edema has improved ! Right periobital edema also improved, still with erythema. * Appreciate OPTH consult DX: DIAGNOSIS: Contusion of the ocular adnexa, right eye. No ophthalmic intervention is required at this time. * CT Brain 05/30 repeat: IMPRESSION: 1. Stable appearance of small right frontal hematoma. 2. Mild atrophy. 3. No other from 05/29/2017. EXAM GENERAL: A/A/0, afebrile, VSS HEENT: Right side facial edema, w/right pre-orbital/[place]-orbital edema NECK: (Supple CHEST: Rise symmetrical without dyspnea on observation ABDOMEN: Soft, EXTREMITIES: Warm, moves extremities SKIN: Tattoos ID ASSESSMENT: 56 yo M s/p mechanical fall at home in his yard where he hit his R-side face/ head on grass or concrete admit with: 1. Intraparenchymal hemorrhage. * Brain CT did show right frontal parenchymal hematoma measuring 16 x 11 mm with minimal associated mass-effect and no midline shift. * Neurosurgery was already consulted. Repeat CT scan of the brain shows stable appearance of small right frontal hematoma. 2. Right maxillary and periorbital suspect cellulitis. 3. Contusion of the ocular adnexa, right eye. No ophthalmic intervention is required at this time=>Per ophthalmology consult 05/30/17 4. Cystic lesion in the left maxillary alveolar ridge measuring 1.4 x 2.1 cm with involvement of the root of the left first maxillary incisor. * Patient reports that he had possible abscess after his dental procedure which was prior to his recent fall. On antibiotics for now. * Per notes=> Patient to follow up with oral and maxillofacial surgeon as outpatient 5. Essential hypertension. 6. History of sciatica. INVASIVES: PIV ABX ALLERGY: KNDA CURRENT ABX: Clinda IV #2 ID PLAN 1. The patient should be continued on the IV clindamycin until resolution of the cellulitis has occurred = per ophthalmology note. 2. Check nares for MRSA -> Pending 3. Will discuss future indication for ABX IV switch to PO with Dr. Webster to inquire if that is an option, given ophthalmology note; alternative is to send patient out with IV ABX with HH. . Problems: Consultation Date/Type/Reason Admit Date/Time May 29, 2017 at 12:36 Initial Consult Date 05/29/17 Type of Consultation: ID Exam/Review of Systems Vital Signs Vitals Vital Signs Date Time Temp Pulse Resp B/P Pulse Ox O2 Delivery O2 Flow Rate FiO2 05/31/17 15:23 98.5 66 18 122/83 95 05/29/17 14:00 Room Air Intake and Output 05/30/17 05/30/17 05/31/17 15:00 23:00 07:00 Intake Total 1300 ml 550 ml Output Total 500 ml 1800 ml 950 ml Balance -500 ml -500 ml -400 ml Results Result Diagram: 05/31/17 0837 05/31/17 0837 Results 24 hrs Laboratory Tests Test 05/31/17 08:37 White Blood Count 6.2 Red Blood Count 4.22 L Hemoglobin 12.7 L Hematocrit 39.2 L Mean Corpuscular Volume 92.9 Mean Corpuscular Hemoglobin 30.1 Mean Corpuscular Hemoglobin Concent 32.4 Red Cell Distribution Width 12.5 Platelet Count 306 Mean Platelet Volume 8.4 Neutrophils % 50.9 Lymphocytes % 26.3 Monocytes % 7.6 Eosinophils % 14.4 H Basophils % 0.5 Nucleated Red Blood Cells % 0.0 Neutrophils # 3.1 Lymphocytes # 1.6 Monocytes # 0.5 Eosinophils # 0.9 H Basophils # 0.0 Nucleated Red Blood Cells # 0.0 Sodium Level 142 Potassium Level 4.0 Chloride Level 99 Carbon Dioxide Level 29 Anion Gap 18 H Blood Urea Nitrogen 16 Creatinine 0.94 Glucose Level 62 #L Calcium Level 9.2 Medications Medications Current Medications Loratadine (Claritin) 10 mg DAILY PO Last administered on 05/31/17t 08:41; Admin Dose 10 MG; Start 05/30/17 at 09:00 Sodium Chloride (Deep Sea) 1 spray DAILY NASAL Last administered on 05/31/17 08 :41; Admin Dose 1 SPRAY; Start 05/29/17 at 13:30 Ondansetron HCl (Zofran Inj) 4 mg Q6H PRN IV NAUSEA AND/OR VOMITING; Start 05/29 at 13:00 Acetaminophen (Tylenol Tab) 650 mg Q6H PRN PO PAIN LEVEL 1-3 OR FEVER; Start at 13:00 Acetaminophen (Tylenol Supp) 650 mg Q6H PRN [place] PAIN LEVEL 1-3 OR FEVER; Start 05/29/17 at 13:00 Docusate Sodium (Colace) 100 mg Q12H PRN PO CONSTIPATION; Start 05/29/17 at 13: 00 Magnesium Hydroxide (Milk Of Mag) 30 ml DAILY PRN PO CONSTIPATION; Start at 13:00 Bisacodyl (Dulcolax Supp) 10 mg DAILY PRN [place] CONSTIPATION; Start 05/29/17 at 13: 00 Famotidine (Pepcid) 20 mg Q12 PO Last administered on 05/31/17 08:41; Admin Dose 20 MG; Start 05/29/17 at 21:00 Alprazolam (Xanax) 2 mg BID PRN PO ANXIETY Last administered on 05/31/17 02:08 ; Admin Dose 2 MG; Start 05/29/17 at 16:00 Carisoprodol (Soma) 350 mg BID PRN PO MUSCLE SPASMS Last administered on 02:08; Admin Dose 350 MG; Start 05/29/17 at 16:00 Diphenhydramine HCl (Benadryl) 50 mg Q6H PRN PO ITCHING Last administered on 12:50; Admin Dose 50 MG; Start 05/29/17 at 16:00 Lisinopril 20 mg 20 mg BID PO ; Start 05/29/17 at 21:00 Clindamycin HCl/ Dextrose (Cleocin 600 Mg/ D5W (Pmx)) 50 ml @ 50 mls/hr Q6 IVPB Last administered on 05/31/17 12:42; Admin Dose 50 MLS/HR; Start 05/29/17 at 18 :00 Saccharomyces Boulardii (Florastor) 250 mg BID PO Last administered on 08:41; Admin Dose 250 MG; Start 05/29/17 at 21:00 Tramadol HCl (Ultram) 100 mg Q6H PRN PO PAIN Last administered on 05/31/17 15: 27; Admin Dose 100 MG; Start 05/31/17 at 13:30 LISSA LYONS NP May 31, 2017 15:39
[2017-06-01] VITALS (12 sets, daily range): BP systolic 89–106; BP diastolic 52–76; PULSE 66–85; RESP 15–19
[2017-06-01] MEDS: CLINDAMYCIN 600 MG/D5W (PMX) 50 ML IVPB SCH ×4 (00:04→17:31)
--- NOTE | 2017-06-01 07:49 | CONS ---
Date/Time of Note Date/Time of Note DATE: 06/01/17 TIME: 07:41 Assessment/Plan Assessment/Plan Additional Assessment/Plan I have had long conversation with patient and spoke to him about the use of opioids after head injury. Although he has no focal neurological finding he has been seen by neurosurgical consultation is no indication for surgery I will still withhold IV opioids. We will switch him to Ultram he is in agreement with this regimen. Consultation Date/Type/Reason Admit Date/Time May 29, 2017 at 12:36 Date of Consultation: May 31, 2017 Reason for Consultation Pain management Hx of Present Illness This gentleman is a very pleasant 56-year-old male who took a ground-level non- syncopal fall. He struck the right side of his head after tripping over a hose , there was no loss of consciousness since that time there is no dizziness, diplopia or disorientation nausea or vomiting. Patient was seen and examined in the emergency room at [facility] results of CT scan are as noted below. His major complaints at this time is right facial discomfort, a gnawing type of pain which peaks and trough does not radiate to his neck or spine. There is no feet fatigue or disorientation associated with his discomfort., Patient takes [place] 1 tablet twice a day for chronic pain syndrome he assures me he has no purposeful oversedation he does not appear to be intoxicated unkempt has not requested frequent early renewals of his medication or increasing dosages. I do not see the impression that he is using the pain medications for any situational stressors. There is no past medical history of smoking alcohol or street drug use. Patient describes his pain is 5/ 10 but states that the morphine given intravenously does not control his pain however he states he has no side effects associated with this pain medication. The pain has not affected his sleeping patterns. Psychological: nl mood/affect Social History Alcohol Use: none Smoking Status: Current some day smoker (3 cigarettes/day) Drug Use: none Exam/Review of Systems Vital Signs Vitals Vital Signs Date Time Temp Pulse Resp B/P Pulse Ox O2 Delivery O2 Flow Rate FiO2 06/01/17 07:23 98.1 69 18 89/52 96 05/29/17 14:00 Room Air Intake and Output 05/31/17 05/31/17 06/01/17 15:00 23:00 07:00 Intake Total 50 ml 950 ml 650 ml Output Total 750 ml 500 ml Balance 50 ml 200 ml 150 ml Exam Constitutional: alert, oriented, well developed Head: other (Right facial lid partially closed, erythematous non-flocculent, no eye discharge cranial nerves grossly intact) Neck: non-tender, supple, No bruits, No jvd, No masses, No nuchal rigidity, No other, No thyromegaly Respiratory: No clear to auscultation, No congested cough, No crackles/rales, No diminished breath sounds, No intercostal retraction, No labored breathing, No normal air movement, No other, No respirations, No tactile fremitus, No wheezing Cardiovascular: No S3, No S4, No bruits, No diastolic murmur, No edema, No gallop, No irregular rhythm, No jugular venous distention (JVD), No murmurs/ extra sounds, No nl pulses, No other, No regular rate and rhythm, No rub, No systolic murmur Neurological: No FLAT BED KNITTER II-XII intact, No DTR's symmetric, No confused, No focal weakness, No lethargic, No nl mental status, No nl speech, No nl strength, No numbness, No other, No reflexes, No unresponsive Results Result Diagram: 05/31/17 0837 05/31/17 0837 Results 24 hrs Laboratory Tests Test 05/31/17 08:37 White Blood Count 6.2 Red Blood Count 4.22 L Hemoglobin 12.7 L Hematocrit 39.2 L Mean Corpuscular Volume 92.9 Mean Corpuscular Hemoglobin 30.1 Mean Corpuscular Hemoglobin Concent 32.4 Red Cell Distribution Width 12.5 Platelet Count 306 Mean Platelet Volume 8.4 Neutrophils % 50.9 Lymphocytes % 26.3 Monocytes % 7.6 Eosinophils % 14.4 H Basophils % 0.5 Nucleated Red Blood Cells % 0.0 Neutrophils # 3.1 Lymphocytes # 1.6 Monocytes # 0.5 Eosinophils # 0.9 H Basophils # 0.0 Nucleated Red Blood Cells # 0.0 Sodium Level 142 Potassium Level 4.0 Chloride Level 99 Carbon Dioxide Level 29 Anion Gap 18 H Blood Urea Nitrogen 16 Creatinine 0.94 Glucose Level 62 #L Calcium Level 9.2 Medications Medications Current Medications Loratadine (Claritin) 10 mg DAILY PO Last administered on 05/31/17 08:41; Admin Dose 10 MG; Start 05/30/17 at 09:00 Sodium Chloride (Deep Sea) 1 spray DAILY NASAL Last administered on 05/31/17 08 :41; Admin Dose 1 SPRAY; Start 05/29/17 at 13:30 Ondansetron HCl (Zofran Inj) 4 mg Q6H PRN IV NAUSEA AND/OR VOMITING; Start 05/29 at 13:00 Acetaminophen (Tylenol Tab) 650 mg Q6H PRN PO PAIN LEVEL 1-3 OR FEVER; Start at 13:00 Acetaminophen (Tylenol Supp) 650 mg Q6H PRN [place] PAIN LEVEL 1-3 OR FEVER; Start 05/29/17 at 13:00 Docusate Sodium (Colace) 100 mg Q12H PRN PO CONSTIPATION; Start 05/29/17 at 13: 00 Magnesium Hydroxide (Milk Of Mag) 30 ml DAILY PRN PO CONSTIPATION; Start at 13:00 Bisacodyl (Dulcolax Supp) 10 mg DAILY PRN [place] CONSTIPATION; Start 05/29/17 at 13: 00 Famotidine (Pepcid) 20 mg Q12 PO Last administered on 05/31/17 21:25; Admin Dose 20 MG; Start 05/29/17 at 21:00 Alprazolam (Xanax) 2 mg BID PRN PO ANXIETY Last administered on 05/31/17 21:24 ; Admin Dose 2 MG; Start 05/29/17 at 16:00 Carisoprodol (Soma) 350 mg BID PRN PO MUSCLE SPASMS Last administered on 16:10; Admin Dose 350 MG; Start 05/29/17 at 16:00 Diphenhydramine HCl (Benadryl) 50 mg Q6H PRN PO ITCHING Last administered on 21:24; Admin Dose 50 MG; Start 05/29/17 at 16:00 Lisinopril 20 mg 20 mg BID PO Last administered on 05/31/17 21:25; Admin Dose 20 MG; Start 05/29/17 at 21:00 Clindamycin HCl/ Dextrose (Cleocin 600 Mg/ D5W (Pmx)) 50 ml @ 50 mls/hr Q6 IVPB Last administered on 06/01/17 06:11; Admin Dose 50 MLS/HR; Start 05/29/17 at 18 :00 Saccharomyces Boulardii (Florastor) 250 mg BID PO Last administered on 21:24; Admin Dose 250 MG; Start 05/29/17 at 21:00 Tramadol HCl (Ultram) 100 mg Q6H PRN PO PAIN Last administered on 05/31/17 15: 27; Admin Dose 100 MG; Start 05/31/17 at 13:30 JUAN ALBERTO VOGEL Jun 01, 2017 07:49
[2017-06-01] MEDS: SALINE 0.65% 45 ML NAS SPRAY NASAL SCH (08:52)
[2017-06-01] MEDS: SACCHAROMYCES BOULARDII 250 MG CAP PO SCH ×2 (08:52→21:04)
[2017-06-01] MEDS: LORATADINE 10 MG TAB PO SCH (08:52)
[2017-06-01] MEDS: FAMOTIDINE 20 MG TAB PO SCH ×2 (08:52→21:03)
[2017-06-01 10:04] LABS: BASOPHILS % 0.3 % (0.0-2.0); EOSINOPHILS # 0.9 10^3/ul (0.0-0.5); EOSINOPHILS % 13.9 % (0.0-7.0); HEMATOCRIT 42.3 % (42.0-52.0); HEMOGLOBIN 13.7 g/dl (14.0-18.0); LYMPHOCYTES # 1.4 10^3/ul (0.8-2.9); LYMPHOCYTES % 21.7 % (15.0-51.0); MEAN CORPUSCULAR HEMOGLOBIN 30.1 pg (29.0-33.0); MEAN CORPUSCULAR HGB CONC 32.4 g/dl (32.0-37.0); MEAN PLATELET VOLUME 8.2 fl (7.4-10.4); MONOCYTE # 0.5 10^3/ul (0.3-0.9); MONOCYTES % 8.6 % (0.0-11.0); NEUTROPHIL # 3.5 10^3/ul (1.6-7.5); NEUTROPHILS % 55.2 % (39.0-77.0); PLATELET COUNT 353 10^3/UL (140-415); RED BLOOD COUNT 4.55 10^6/ul (4.70-6.10); RED CELL DISTRIBUTION WIDTH 12.6 % (11.5-14.5); WHITE BLOOD COUNT 6.3 10^3/ul (4.8-10.8)
[2017-06-01 10:09] LABS: CALCIUM 9.9 mg/dl (8.4-10.2); CREATININE 1.05 mg/dl (0.61-1.24)
[2017-06-01] MEDS: traMADol 50 MG TAB PO PRN ×2 (10:19→19:49)
--- NOTE | 2017-06-01 10:27 | PN ---
Date/Time of Note Date/Time of Note DATE: 06/01/17 TIME: 10:24 Assessment/Plan VTE Prophylaxis VTE Prophylaxis Intervention: SCD's Lines/Catheters IV [facility]from [facility] [place] Urinary Cath still in place: No Assessment/Plan Chief Complaint/Hosp Course Impression and plan 1. Intraparenchymal hemorrhage. Brain CT did show right frontal parenchymal hematoma measuring 16 x 11 mm with minimal associated mass-effect and no midline shift. Neurosurgery was already consulted. Repeat CT scan of the brain shows stable appearance of small right frontal hematoma. Continue neuro checks. Stable at present. No plan for surgical intervention. stable 2. Right maxillary and periorbital suspect cellulitis. continue abx. [employer] consulted. No plan for ophthalmology intervention at this time. Continue recommendations. improving 3. Cystic lesion in the left maxillary alveolar ridge measuring 1.4 x 2.1 cm with involvement of the root of the left first maxillary incisor. Patient reports that he had possible abscess after his dental procedure which was prior to his recent fall. On antibiotics for now. Discussed with ENT (Dr. Giovany John) . Patient will need oral and maxillofacial surgeon as outpatient 4. Essential hypertension. Patient to be resumed on his antihypertensive medications. Will adjust as needed. stable 5. History of dyslipidemia. Follow-up on fasting lipid panel. 6. History of sciatica. Continue with analgesics Disposition plan: improving on abx. Still with noted swelling in facial area. monitor for clinical improvement. d/c planning. d/c when medically stable and cleared by consultants Discussed plan of care with Dr. Cartagena Problems: Subjective 24 Hr Interval Summary Free Text/Dictation resting at this time. no s/s of distress. still reports some back pain Exam/Review of Systems Vital Signs Vitals Vital Signs Date Time Temp Pulse Resp B/P Pulse Ox O2 Delivery O2 Flow Rate FiO2 06/01/17 08:10 68 06/01/17 07:23 98.1 18 89/52 96 05/29/17 14:00 Room Air Intake and Output 05/31/17 05/31/17 06/01/17 14:59 22:59 06:59 Intake Total 50 ml 950 ml 650 ml Output Total 750 ml 500 ml Balance 50 ml 200 ml 150 ml Exam Constitutional: alert, Psych: nl mood/affect Head: other (Swelling seen on right maxillary area that extends to periorbital area of the right side. appears improving .) Eyes: icteric (Minimally) Respiratory: clear to auscultation Cardiovascular: nl pulses, regular rate and rhythm Gastrointestinal: non-tender, soft Musculoskeletal: No muscle weakness Neurological: nl mental status, nl speech Skin: other (swelling on face less today Results Result Diagram: 06/01/1723 06/01/17922 Results 24 hrs Laboratory Tests Test 06/01/17 09:23 White Blood Count 6.3 Red Blood Count 4.55 L Hemoglobin 13.7 L Hematocrit 42.3 Mean Corpuscular Volume 93.0 Mean Corpuscular Hemoglobin 30.1 Mean Corpuscular Hemoglobin Concent 32.4 Red Cell Distribution Width 12.6 Platelet Count 353 Mean Platelet Volume 8.2 Neutrophils % 55.2 Lymphocytes % 21.7 Monocytes % 8.6 Eosinophils % 13.9 H Basophils % 0.3 Nucleated Red Blood Cells % 0.0 Neutrophils # 3.5 Lymphocytes # 1.4 Monocytes # 0.5 Eosinophils # 0.9 H Basophils # 0.0 Nucleated Red Blood Cells # 0.0 Sodium Level 145 H Potassium Level 5.0 Chloride Level 102 Carbon Dioxide Level 28 Anion Gap 20 H Blood Urea Nitrogen 21 H Creatinine 1.05 Glucose Level 97 Calcium Level 9.9 Medications Medications Current Medications Loratadine (Claritin) 10 mg DAILY PO Last administered on 06/01/17 08:52; Admin Dose 10 MG; Start 05/30/17 at 09:00 Sodium Chloride (Deep Sea) 1 spray DAILY NASAL Last administered on 06/01/17 08 :52; Admin Dose 1 SPRAY; Start 05/29/17 at 13:30 Ondansetron HCl (Zofran Inj) 4 mg Q6H PRN IV NAUSEA AND/OR VOMITING; Start 05/29 at 13:00 Acetaminophen (Tylenol Tab) 650 mg Q6H PRN PO PAIN LEVEL 1-3 OR FEVER; Start at 13:00 Acetaminophen (Tylenol Supp) 650 mg Q6H PRN [place] PAIN LEVEL 1-3 OR FEVER; Start 05/29/17 at 13:00 Docusate Sodium (Colace) 100 mg Q12H PRN PO CONSTIPATION; Start 05/29/17 at 13: 00 Magnesium Hydroxide (Milk Of Mag) 30 ml DAILY PRN PO CONSTIPATION; Start at 13:00 Bisacodyl (Dulcolax Supp) 10 mg DAILY PRN [place] CONSTIPATION; Start 05/29/17 at 13: 00 Famotidine (Pepcid) 20 mg Q12 PO Last administered on 06/01/17 08:52; Admin Dose 20 MG; Start 05/29/17 at 21:00 Alprazolam (Xanax) 2 mg BID PRN PO ANXIETY Last administered on 05/31/17 21:24 ; Admin Dose 2 MG; Start 05/29/17 at 16:00 Carisoprodol (Soma) 350 mg BID PRN PO MUSCLE SPASMS Last administered on 16:10; Admin Dose 350 MG; Start 05/29/17 at 16:00 Diphenhydramine HCl 50 mg 50 mg Q6H PRN PO ITCHING Last administered on 21:24; Admin Dose 50 MG; Start 05/29/17 at 16:00 Clindamycin HCl/ Dextrose (Cleocin 600 Mg/ D5W (Pmx)) 50 ml @ 50 mls/hr Q6 IVPB Last administered on 06/01/17 06:11; Admin Dose 50 MLS/HR; Start 05/29/17 at 18 :00 Saccharomyces Boulardii (Florastor) 250 mg BID PO Last administered on 08:52; Admin Dose 250 MG; Start 05/29/17 at 21:00 Tramadol HCl (Ultram) 100 mg Q6H PRN PO PAIN Last administered on 06/01/17 10: 19; Admin Dose 100 MG; Start 05/31/17 at 13:30 Lisinopril (Zestril) 10 mg BID PO ; Start 06/01/17 at 21:00 KIARRA GUERRA Jun 01, 2017 10:27
--- NOTE | 2017-06-01 10:39 | CONS ---
Date/Time of Note Date/Time of Note DATE: 06/01/17 TIME: 10:36 Assessment/Plan Assessment/Plan Chief Complaint/Hosp Course This gentleman is a very pleasant 56-year-old male who took a ground-level non- syncopal fall. He struck the right side of his head after tripping over a hose , there was no loss of consciousness since that time there is no dizziness, diplopia or disorientation nausea or vomiting. Patient was seen and examined in the emergency room at [facility] results of CT scan are as noted below. His major complaints at this time is right facial discomfort, a gnawing type of pain which peaks and trough does not radiate to his neck or spine. There is no feet fatigue or disorientation associated with his discomfort., Patient takes [place] 1 tablet twice a day for chronic pain syndrome he assures me he has no purposeful oversedation he does not appear to be intoxicated unkempt has not requested frequent early renewals of his medication or increasing dosages. I do not see the impression that he is using the pain medications for any situational stressors. There is no past medical history of smoking alcohol or street drug use. Patient describes his pain is 5/ 10 but states that the morphine given intravenously does not control his pain however he states he has no side effects associated with this pain medication. The pain has not affected his sleeping patterns. Problems: Additional Assessment/Plan Doing better today, denies nausea vomiting dizziness diplopia disorientation, unsteady gait.... Still complaining of pain from sciatica which a chronic medical condition for which he was prescribed [place] . We will continue with just Ultram Distraction therapy Ambulation From a pain management standpoint when patient is discharged can go home and restart [place]. Consultation Date/Type/Reason Admit Date/Time May 29, 2017 at 12:36 Initial Consult Date 05/31/17 Type of Consultation: Pain management Exam/Review of Systems Vital Signs Vitals Vital Signs Date Time Temp Pulse Resp B/P Pulse Ox O2 Delivery O2 Flow Rate FiO2 06/01/17 08:10 68 06/01/17 07:23 98.1 18 89/52 96 05/29/17 14:00 Room Air Intake and Output 05/31/17 05/31/17 06/01/17 15:00 23:00 07:00 Intake Total 50 ml 950 ml 650 ml Output Total 750 ml 500 ml Balance 50 ml 200 ml 150 ml Exam Constitutional: alert, oriented, well developed Neurological: SUPERVISOR SPEECH II-XII intact, nl mental status, nl speech, nl strength Results Result Diagram: 06/01/1792206/01/17922 Results 24 hrs Laboratory Tests Test 06/01/17 09:23 White Blood Count 6.3 Red Blood Count 4.55 L Hemoglobin 13.7 L Hematocrit 42.3 Mean Corpuscular Volume 93.0 Mean Corpuscular Hemoglobin 30.1 Mean Corpuscular Hemoglobin Concent 32.4 Red Cell Distribution Width 12.6 Platelet Count 353 Mean Platelet Volume 8.2 Neutrophils % 55.2 Lymphocytes % 21.7 Monocytes % 8.6 Eosinophils % 13.9 H Basophils % 0.3 Nucleated Red Blood Cells % 0.0 Neutrophils # 3.5 Lymphocytes # 1.4 Monocytes # 0.5 Eosinophils # 0.9 H Basophils # 0.0 Nucleated Red Blood Cells # 0.0 Sodium Level 145 H Potassium Level 5.0 Chloride Level 102 Carbon Dioxide Level 28 Anion Gap 20 H Blood Urea Nitrogen 21 H Creatinine 1.05 Glucose Level 97 Calcium Level 9.9 Medications Medications Current Medications Loratadine (Claritin) 10 mg DAILY PO Last administered on 06/01/17 08:52; Admin Dose 10 MG; Start 05/30/17 at 09:00 Sodium Chloride (Deep Sea) 1 spray DAILY NASAL Last administered on 06/01/17 08 :52; Admin Dose 1 SPRAY; Start 05/29/17 at 13:30 Ondansetron HCl (Zofran Inj) 4 mg Q6H PRN IV NAUSEA AND/OR VOMITING; Start 05/29 at 13:00 Acetaminophen (Tylenol Tab) 650 mg Q6H PRN PO PAIN LEVEL 1-3 OR FEVER; Start at 13:00 Acetaminophen (Tylenol Supp) [address] PAIN LEVEL 1-3 OR FEVER; Start 05/29/17 at 13:00 Docusate Sodium (Colace) 100 mg Q12H PRN PO CONSTIPATION; Start 05/29/17 at 13: 00 Magnesium Hydroxide (Milk Of Mag) 30 ml DAILY PRN PO CONSTIPATION; Start at 13:00 Bisacodyl (Dulcolax Supp) [address] CONSTIPATION; Start 05/29/17 at 13: 00 Famotidine (Pepcid) 20 mg Q12 PO Last administered on 06/01/17 08:52; Admin Dose 20 MG; Start 05/29/17 at 21:00 Alprazolam (Xanax) 2 mg BID PRN PO ANXIETY Last administered on 05/31/17 21:24 ; Admin Dose 2 MG; Start 05/29/17 at 16:00 Carisoprodol (Soma) 350 mg BID PRN PO MUSCLE SPASMS Last administered on 16:10; Admin Dose 350 MG; Start 05/29/17 at 16:00 Diphenhydramine HCl 50 mg 50 mg Q6H PRN PO ITCHING Last administered on 21:24; Admin Dose 50 MG; Start 05/29/17 at 16:00 Clindamycin HCl/ Dextrose (Cleocin 600 Mg/ D5W (Pmx)) 50 ml @ 50 mls/hr Q6 IVPB Last administered on 06/01/17 06:11; Admin Dose 50 MLS/HR; Start 05/29/17 at 18 :00 Saccharomyces Boulardii (Florastor) 250 mg BID PO Last administered on 08:52; Admin Dose 250 MG; Start 05/29/17 at 21:00 Tramadol HCl (Ultram) 100 mg Q6H PRN PO PAIN Last administered on 06/01/17 10: 19; Admin Dose 100 MG; Start 05/31/17 at 13:30 Lisinopril (Zestril) 10 mg BID PO ; Start 06/01/17 at 21:00 JUAN ALBERTO VOGEL Jun 01, 2017 10:39
[2017-06-01] MEDS: LOPERAMIDE 2 MG CAP PO PRN ×3 (14:15→21:03)
--- NOTE | 2017-06-01 18:24 | CONS ---
Date/Time of Note Date/Time of Note DATE: 06/01/17 TIME: 18:05 Assessment/Plan Assessment/Plan Chief Complaint/Hosp Course ID PROGRESS NOTE CURRENT ABX=> Clindamycin #3 + Start Diflucan #1 24H INTERVAL SUMMARY * A/A/O -> ambulating in room next to bed. Right facial erythema is gone, he has residual edema right face and [place]-orbital; he is able to open his eye and has good vision. * He endorses (+)itching external ear and mouth -> Suspect YEAST overgrowth due to ABX * Repeat CT scan pending according to patient * Appreciate OPTH consult DX: DIAGNOSIS: Contusion of the ocular adnexa, right eye. No ophthalmic intervention is required at this time. * CT Brain 05/30 repeat: IMPRESSION: 1. Stable appearance of small right frontal hematoma. 2. Mild atrophy. 3. No other from 05/29/2017. EXAM GENERAL: A/A/0, afebrile, VSS HEENT: Right side facial edema, w/right pre-orbital/[place]-orbital edema NECK: (Supple CHEST: Rise symmetrical without dyspnea on observation ABDOMEN: Soft, EXTREMITIES: Warm, moves extremities SKIN: Tattoos ID ASSESSMENT: 56 yo M s/p mechanical fall at home in his yard where he hit his R-side face/ head on grass or concrete admit with: 1. Intraparenchymal hemorrhage. * Brain CT did show right frontal parenchymal hematoma measuring 16 x 11 mm with minimal associated mass-effect and no midline shift. * Neurosurgery was already consulted. Repeat CT scan of the brain shows stable appearance of small right frontal hematoma. 2. Right maxillary and periorbital suspect cellulitis. 3. Contusion of the ocular adnexa, right eye. No ophthalmic intervention is required at this time=>Per ophthalmology consult 05/30/17 4. Cystic lesion in the left maxillary alveolar ridge measuring 1.4 x 2.1 cm with involvement of the root of the left first maxillary incisor. * Patient reports that he had possible abscess after his dental procedure which was prior to his recent fall. On antibiotics for now. * Per notes=> Patient to follow up with oral and maxillofacial surgeon as outpatient 5. Superimposed yeast infection/overgrowth due to IV ABX 6. Diarrhea -> ABX associated due to [place] 7. Essential hypertension. 8. Chronic back pain w/sciatica=> Rx [place] (-)MRSA Nares INVASIVES: PIV ABX ALLERGY: KNDA CURRENT ABX: Clinda IV #3 + Start Diflucan #1 ID PLAN 1. Start Diflucan IV -> then switch to Diflucan 100mg po daily x 14 days to cover concern for superimposed yeast infection after lengthy ABX course. 2. When cleared for DC home; patient may DC on AUGMENTIN 875mg po BID x 14 day * => he is unclear when he can secure oral surgeon appointment and he has evidence of dental abscess warranting longer course of PO ABX. . Problems: Consultation Date/Type/Reason Admit Date/Time May 29, 2017 at 12:36 Initial Consult Date 05/29/17 Type of Consultation: ID Exam/Review of Systems Vital Signs Vitals Vital Signs Date Time Temp Pulse Resp B/P Pulse Ox O2 Delivery O2 Flow Rate FiO2 06/01/17 16:09 72 06/01/17 15:33 98.5 18 103/59 94 05/29/17 14:00 Room Air Intake and Output 05/31/17 05/31/17 06/01/17 15:00 23:00 07:00 Intake Total 50 ml 950 ml 650 ml Output Total 750 ml 500 ml Balance 50 ml 200 ml 150 ml Results Result Diagram: 06/01/1723 06/01/17 0923 Results 24 hrs Laboratory Tests Test 06/01/17 09:23 White Blood Count 6.3 Red Blood Count 4.55 L Hemoglobin 13.7 L Hematocrit 42.3 Mean Corpuscular Volume 93.0 Mean Corpuscular Hemoglobin 30.1 Mean Corpuscular Hemoglobin Concent 32.4 Red Cell Distribution Width 12.6 Platelet Count 353 Mean Platelet Volume 8.2 Neutrophils % 55.2 Lymphocytes % 21.7 Monocytes % 8.6 Eosinophils % 13.9 H Basophils % 0.3 Nucleated Red Blood Cells % 0.0 Neutrophils # 3.5 Lymphocytes # 1.4 Monocytes # 0.5 Eosinophils # 0.9 H Basophils # 0.0 Nucleated Red Blood Cells # 0.0 Sodium Level 145 H Potassium Level 5.0 Chloride Level 102 Carbon Dioxide Level 28 Anion Gap 20 H Blood Urea Nitrogen 21 H Creatinine 1.05 Glucose Level 97 Calcium Level 9.9 Medications Medications Current Medications Loratadine (Claritin) 10 mg DAILY PO Last administered on 06/01/17 08:52; Admin Dose 10 MG; Start 05/30/17 at 09:00 Sodium Chloride (Deep Sea) 1 spray DAILY NASAL Last administered on 06/01/17 08 :52; Admin Dose 1 SPRAY; Start 05/29/17 at 13:30 Ondansetron HCl (Zofran Inj) 4 mg Q6H PRN IV NAUSEA AND/OR VOMITING; Start 05/29 at 13:00 Acetaminophen (Tylenol Tab) 650 mg Q6H PRN PO PAIN LEVEL 1-3 OR FEVER; Start at 13:00 Acetaminophen (Tylenol Supp) 650 mg Q6H PRN [place] PAIN LEVEL 1-3 OR FEVER; Start 05/29/17 at 13:00 Docusate Sodium (Colace) 100 mg Q12H PRN PO CONSTIPATION; Start 05/29/17 at 13: 00 Magnesium Hydroxide (Milk Of Mag) 30 ml DAILY PRN PO CONSTIPATION; Start at 13:00 Bisacodyl (Dulcolax Supp) 10 mg DAILY PRN [place] CONSTIPATION; Start 05/29/17 at 13: 00 Famotidine (Pepcid) 20 mg Q12 PO Last administered on 06/01/17 08:52; Admin Dose 20 MG; Start 05/29/17 at 21:00 Alprazolam (Xanax) 2 mg BID PRN PO ANXIETY Last administered on 05/31/17 21:24 ; Admin Dose 2 MG; Start 05/29/17 at 16:00 Carisoprodol (Soma) 350 mg BID PRN PO MUSCLE SPASMS Last administered on 16:10; Admin Dose 350 MG; Start 05/29/17 at 16:00 Diphenhydramine HCl 50 mg 50 mg Q6H PRN PO ITCHING Last administered on 21:24; Admin Dose 50 MG; Start 05/29/17 at 16:00 Clindamycin HCl/ Dextrose (Cleocin 600 Mg/ D5W (Pmx)) 50 ml @ 50 mls/hr Q6 IVPB Last administered on 06/01/17 17:31; Admin Dose 50 MLS/HR; Start 05/29/17 at 18 :00 Saccharomyces Boulardii (Florastor) 250 mg BID PO Last administered on 08:52; Admin Dose 250 MG; Start 05/29/17 at 21:00 Tramadol HCl (Ultram) 100 mg Q6H PRN PO PAIN Last administered on 06/01/17 10: 19; Admin Dose 100 MG; Start 05/31/17 at 13:30 Lisinopril (Zestril) 10 mg BID PO ; Start 06/01/17 at 21:00 Loperamide HCl (Imodium Cap) 2 mg QID PRN PO DIARRHEA Last administered on 14:15; Admin Dose 2 MG; Start 06/01/17 at 14:30 LISSA LYONS NP Jun 01, 2017 18:17
[2017-06-01] MEDS ORDERED: FLUCONAZOLE 400 MG/NS (PMX) 200 ML IVPB ONE (19:00)
[2017-06-01] MEDS: DIPHENHYDRAMINE 50 MG CAP PO PRN (19:50)
[2017-06-01] MEDS: CARISOPRODOL 350 MG TAB PO PRN (21:03)
[2017-06-01] MEDS: LISINOPRIL 10 MG TAB PO SCH (21:05)
[2017-06-01] MEDS: ALPRAZOLAM 1 MG TAB PO PRN (22:27)
[2017-06-02] VITALS (8 sets, daily range): BP systolic 96–110; BP diastolic 53–64; PULSE 67–85; RESP 18
[2017-06-02] MEDS: CLINDAMYCIN 600 MG/D5W (PMX) 50 ML IVPB SCH ×3 (00:24→11:58)
[2017-06-02] MEDS: traMADol 50 MG TAB PO PRN ×3 (01:33→13:27)
[2017-06-02] MEDS: LOPERAMIDE 2 MG CAP PO PRN ×3 (04:09→13:26)
[2017-06-02] MEDS: LISINOPRIL 10 MG TAB PO SCH (07:42)
[2017-06-02] MEDS: LORATADINE 10 MG TAB PO SCH (07:43)
[2017-06-02] MEDS: SALINE 0.65% 45 ML NAS SPRAY NASAL SCH (07:43)
[2017-06-02] MEDS: FAMOTIDINE 20 MG TAB PO SCH (07:44)
[2017-06-02] MEDS: DIPHENHYDRAMINE 50 MG CAP PO PRN (07:44)
[2017-06-02] MEDS: SACCHAROMYCES BOULARDII 250 MG CAP PO SCH (07:44)
[2017-06-02 07:52] LABS: BASOPHILS % 0.5 % (0.0-2.0); EOSINOPHILS # 0.6 10^3/ul (0.0-0.5); EOSINOPHILS % 9.9 % (0.0-7.0); HEMATOCRIT 38.9 % (42.0-52.0); HEMOGLOBIN 12.6 g/dl (14.0-18.0); LYMPHOCYTES # 1.8 10^3/ul (0.8-2.9); LYMPHOCYTES % 29.5 % (15.0-51.0); MEAN CORPUSCULAR HGB CONC 32.4 g/dl (32.0-37.0); MEAN CORPUSCULAR VOLUME 92.6 fl (82.0-101.0); MEAN PLATELET VOLUME 8.4 fl (7.4-10.4); MONOCYTE # 0.6 10^3/ul (0.3-0.9); MONOCYTES % 9.4 % (0.0-11.0); NEUTROPHILS % 50.5 % (39.0-77.0); PLATELET COUNT 317 10^3/UL (140-415); RED CELL DISTRIBUTION WIDTH 12.7 % (11.5-14.5)
[2017-06-02 08:17] LABS: CALCIUM 9.4 mg/dl (8.4-10.2); CREATININE 1.05 mg/dl (0.61-1.24); POTASSIUM 4.4 mmol/L (3.5-5.1)
[2017-06-02] MEDS ORDERED: FLUCONAZOLE 100 MG TAB PO SCH (09:00)
[2017-06-02] MEDS ORDERED: FLUC100T PO (09:42)
[2017-06-02] MEDS ORDERED: LISI10TA2 PO (09:43)
[2017-06-02] MEDS ORDERED: HYDR-905 PO (09:43)
--- NOTE | 2017-06-02 09:46 | PDOCDIS ---
Discharge Instructions DIAGNOSIS Discharge Diagnosis 1. Intraparenchymal hemorrhage. 2. Right maxillary and periorbital suspect cellulitis. 3. Cystic lesion in the left maxillary alveolar ridge measuring 1.4 x 2.1 cm with involvement of the root of the left first maxillary incisor. 4. Essential hypertension. 5. History of dyslipidemia. 6. History of sciatica. HOME CARE INSTRUCTIONS: Diet Instructions: Low Fat /CholesterolSpecial Diet: Cardiac FOLLOW UP/APPOINTMENTS Follow-up Plan 1. Follow up with your primary care provider in one week 2. Follow up with your pain management physician in 1-2 weeks 3. Follow up with your dentist in one week KIARRA GUERRA Jun 02, 2017 09:46
--- NOTE | 2017-06-02 12:46 | DS ---
Date/Time of Note Date/Time of Note DATE: 06/02/17 TIME: 12:37 Discharge Summary Admission/Discharge Info Admit Date/Time May 29, 2017 at 12:36 Discharge Date/Time Discharge Diagnosis 1. Intraparenchymal hemorrhage. 2. Right maxillary and periorbital suspect cellulitis. 3. Cystic lesion in the left maxillary alveolar ridge measuring 1.4 x 2.1 cm with involvement of the root of the left first maxillary incisor. 4. Essential hypertension. 5. History of dyslipidemia. 6. History of sciatica. Patient Condition: Stable Consults 1. Dr. Sanju Melo 2. Dr. Jose López 3. Dr. Jesus Manuel Webster 4. Dr. Yomaira Montalvo 5. Dr. Alex John Hx of Present Illness This is a 56-year-old male with history of sciatica as well as hypertension, neuropathy, dyslipidemia, who came to [facility] [place] after reportedly suffering from a mechanical fall roughly around the date of May 25, 2017 (per patient may have also occurred on May 24, 2017). Patient did report that he was watering his garden when he tripped over the hose and fell on the right side of his face. He denies any loss of consciousness. He did report since the fall his face increasingly gotten worse with swelling and some erythema. Particularly on the right side has he also reports that he had a recent dental procedure done prior to this fall and that he may have swelling from that reason as well. Due to worsening of symptoms and also now reported difficulty with balance and coordination he subsequently went to [facility] [place] for further evaluation. Upon examination he had a brain CT scan that did show a right frontal parenchymal hematoma measuring 16 x 11 mm with minimal associated mass-effect and no midline shift. There is also seen mild intracranial vascular calcification. Additionally for his face we did get a facial CT that showed no evidence for acute fracture dislocation but there was seen a cystic lesion in the left maxillary alveolar ridge, 1.4 x 2.1 cm with involvement of the root of the left first maxillary incisor which was seen to be absent. Differentials per report for this may be seen as odontogenic keratocyst versus periapical cyst or ameloblastoma. There is also seen right premalar and periorbital soft tissue swelling consistent with contusion or cellulitis. On physical exam patient was seen with a moderate amount of edema as well as erythema on right maxillary area that extended to periorbital area of the right side. He was seen to be slightly anemic per CBC with hemoglobin of 12.4 and hematocrit of 39.2. BMP otherwise unremarkable. Vital signs remained stable and no fever was seen. No leukocytosis seen either. We will evaluate him for the aformentiond issues. Hospital Course This is a 56 year old male with hx of sciatica, hypertension, neuropathy, dyslipidemia who came to [facility] after suffering from a mechanical fall roughly around the date of May 25, 2017 (per patient may have also occurred on April). Patient did report he was watering his garden when he tripped over a hose and fell on the right side of his face. He denied any loss of consciousness. He did report that since a fall his recent increasingly gotten worse with swelling and some erythema. Particularly on the right side of his face also reported that he had a recent dental procedure done prior to the fall that may have caused the swelling as well. Due to worsening of symptoms and also reported difficulty with balance and coordination came to [facility]. Upon examination he had a scan of his brain that did show right frontal parenchymal hematoma measuring 16 x 11 mm with minimal associated mass-effect and no midline shift. He was seen by neurosurgeon. He did have repeat CT scan of his brain that he after that showed no change. After evaluation no furtherintervention will be needed. He also had a facial CT scan that showed no evidence for acute fracture or dislocation but there was seen a cystic lesion in the left maxillary alveolar ridge measuring 1.4 x 2.1 cm with involvement of the root of the left first maxillary incisor. He was seen by ENT physician who recommended for outpatient oral maxillofacial surgical consultation. No ENT or intervention would be needed during inpatient admission. There was question for a right maxillary and periorbital cellulitis. He was seen by infectious disease physician and placed on antibiotics. We did get an merchandising specialist consultation as well who after review reported no need for any optimal logical intervention and recommended antibiotic treatment medically. Patient during his course he did improve. The swelling on his right side of face decrease and remained alert and oriented with no neurological deficit. He was continued on antihypertensives for his hypertension and analgesics for his history of sciatica. Pain management physician also follow him for this issue. We also monitored his cholesterol for his history of dyslipidemia which were stable. During his course of stay he did improve. The plan of care was discussed with the patient and patient did verbalizes understanding. On the day of discharge patient was in stable condition Discussed plan of care with Dr. Iqbal Discharge process times greater than 40 minutes Home Meds Active Scripts Lisinopril* (Lisinopril*) 10 Mg Tablet, 10 MG PO BID for 30 Days, TAB Prov:KIARRA GUERRA 06/02/17 Fluconazole* (Diflucan*) 100 Mg Tablet, 100 MG PO DAILY for 14 Days, TAB Prov:TOBIKIARRA DELANEY 06/02/17 [Saccharomyces Boulardii] 250 MG CAP No Conflict Check, 250 MG PO BID for 30 Days Prov:KIARRA GUERRA 05/29/17 Reported Medications Ibuprofen* (Ibuprofen*) 800 Mg Tab, 800 MG PO Q6H Y for PAIN, TAB 05/29/17 Zolpidem Tartrate* (Zolpidem Tartrate*) 10 Mg Tablet, 10 MG PO QHS Y for INSOMNIA, #30 TAB 05/29/17 Hydrocodone/Acetaminophen ([place] 10-325 Tablet) 1 Each Tablet, 1 EACH PO Q6 Y for SEVERE PAIN LEVEL 7-10, TAB 05/29/17 Meloxicam* (Meloxicam*) 7.5 Mg Tablet, 15 MG PO DAILY, #30 TAB 05/29/17 Alprazolam* (Xanax*) 2 Mg Tablet, 2 MG PO BID Y for ANXIETY, TAB 05/29/17 Tramadol Hcl* (Ultram*) 50 Mg Tablet, 50 MG PO Q6H Y for PAIN, TAB 05/29/17 Carisoprodol* (Carisoprodol*) 350 Mg Tablet, 350 MG PO BID Y for MUSCLE SPASMS, TAB 05/29/17 Diphenhydramine Hcl* (Benadryl*) 50 Mg Cap, 50 MG PO Q6 Y for ITCHING, CAP 05/29/17 Lisinopril* (Lisinopril*) 20 Mg Tablet, 20 MG PO BID, #30 TAB 05/29/17 Omeprazole* (Omeprazole*) 20 Mg Capsule.dr, 20 MG PO DAILY, #30 CAP 05/29/17 Discontinued Reported Medications Ibuprofen* (Motrin*) 800 Mg Tab, 800 MG PO DAILY Y for PAIN, TAB 09/24/14 Discontinued Scripts Loratadine* (Claritin*) 10 Mg Capsule, 10 MG PO DAILY, #30 CAP Prov:DAVY MONTELONGO PA-C 03/07/17 Azithromycin* (Zithromax*) 250 Mg Tablet, 250 MG PO .LAZARUS DIRECTED, #6 TAB TAKE 500 MG (2 TABS) THE FIRST DAY THEN 250 MG (1 TAB) DAYS 2-5 Prov:DAVY MONTELONGO PA-C 03/07/17 Naproxen* (Naprosyn*) 500 Mg Tablet, 500 MG PO BID Y for PAIN AND/OR INFLAMMATION, #30 TAB Prov:SANDY MOSER DO 02/11/17 Sodium Chloride (Saline Nasal Mist) 126 Ml Mist, 1 SPRAY NASAL DAILY, #1 BOTTLE Prov:MELANIA RM PA-C 11/07/16 Guaifenesin-Dextromethorphan* (Robitussin* DM) 100MG/10MG/5ML Syrup, 10 ML PO Q4H Y for COUGH for 7 Days, ML Prov:MELANIA RM PA-C 11/07/16 Acetaminophen* (Tylophen*) 500 Mg Capsule, 1 CAP PO Q6H Y for PAIN AND OR ELEVATED TEMP, #30 CAP Prov:MELANIA RM PA-C 11/07/16 Ibuprofen* (Motrin*) 600 Mg Tab, 600 MG PO Q6, #30 TAB Prov:MELANIA RM PA-C 11/07/16 Oseltamivir Phosphate* (Tamiflu*) 75 Mg Capsule, 75 MG PO BID for 5 Days, CAP Prov:MELANIA RM PA-C 11/07/16 Tramadol HCl (Tramadol HCl) 50 Mg Tablet, 50 MG PO Q4 Y for PAIN, #20 TAB Prov:TYSON KATE MD 10/13/16 Tramadol HCl (Tramadol HCl) 50 Mg Tablet, 50 MG PO Q4 Y for PAIN, #10 TAB Prov:MELANIA RM PA-C 08/11/16 Dextromethorphan Hb-Promethazine Hcl (Promethazine DM Syrup) 180 Ml Syrup, 5 ML PO Q6H Y for COUGH, #4 OZ Prov:MELANIA RM PA-C 04/26/16 Follow-up Plan HOME CARE INSTRUCTIONS: Diet Instructions: Low Fat /CholesterolSpecial Diet: Cardiac FOLLOW UP/APPOINTMENTS Follow-up Plan 1. Follow up with your primary care provider in one week 2. Follow up with your pain management physician in 1-2 weeks Primary Care Provider Mitch Beebe Time spent on discharge: > 30 minutes Pending Labs Laboratory Tests Test 06/02/17 07:01 White Blood Count 6.010^3/ul (4.8-10.8) Red Blood Count 4.2010^6/ul (4.70-6.10) Hemoglobin 12.6g/dl (14.0-18.0) Hematocrit 38.9% (42.0-52.0) Mean Corpuscular Volume 92.6fl (82.0-101.0) Mean Corpuscular Hemoglobin 30.0pg (29.0-33.0) Mean Corpuscular Hemoglobin Concent 32.4g/dl (32.0-37.0) Red Cell Distribution Width 12.7% (11.5-14.5) Platelet Count 20549^3/UL (140-415) Mean Platelet Volume 8.4fl (7.4-10.4) Neutrophils % 50.5% (39.0-77.0) Lymphocytes % 29.5% (15.0-51.0) Monocytes % 9.4% (0.0-11.0) Eosinophils % 9.9% (0.0-7.0) Basophils % 0.5% (0.0-2.0) Nucleated Red Blood Cells % 0.0/100WBC (0.0-0.0) Neutrophils # 3.010^3/ul (1.6-7.5) Lymphocytes # 1.810^3/ul (0.8-2.9) Monocytes # 0.610^3/ul (0.3-0.9) Eosinophils # 0.610^3/ul (0.0-0.5) Basophils # 0.010^3/ul (0.0-0.1) Nucleated Red Blood Cells # 0.010^3/ul (0.0-0.0) Sodium Level 139mmol/L (135-144) Potassium Level 4.4mmol/L (3.5-5.1) Chloride Level 100mmol/L (97-110) Carbon Dioxide Level 26mmol/L (21-31) Anion Gap 17 (8-16) Blood Urea Nitrogen 20mg/dl (7-20) Creatinine 1.05mg/dl (0.61-1.24) Glucose Level 83mg/dl (70-220) Calcium Level 9.4mg/dl (8.4-10.2) KIARRA GUERRA Jun 02, 2017 12:46
--- NOTE | 2017-06-02 13:50 | CONS ---
Date/Time of Note Date/Time of Note DATE: 06/02/17 TIME: 13:32 Assessment/Plan Assessment/Plan Chief Complaint/Hosp Course ID PROGRESS NOTE CURRENT ABX=> Clindamycin #4 + Start Diflucan #2 24H INTERVAL SUMMARY * Doing well -- plan for DC today his right eye developed crusted blepharitis - - will provide Polytrim eye Gtt * Appreciate OPTH consult DX: DIAGNOSIS: Contusion of the ocular adnexa, right eye. No ophthalmic intervention is required at this time. * CT Brain 05/30 repeat: IMPRESSION: 1. Stable appearance of small right frontal hematoma. 2. Mild atrophy. 3. No other from 05/29/2017. EXAM GENERAL: A/A/0, afebrile, VSS HEENT: Right side facial edema, w/right pre-orbital/ken[place]-orbital edema NECK: (Supple CHEST: Rise symmetrical without dyspnea on observation ABDOMEN: Soft, EXTREMITIES: Warm, moves extremities SKIN: Tattoos ID ASSESSMENT: 56 yo M s/p mechanical fall at home in his yard where he hit his R-side face/ head on grass or concrete admit with: 1. Intraparenchymal hemorrhage. * Brain CT did show right frontal parenchymal hematoma measuring 16 x 11 mm with minimal associated mass-effect and no midline shift. * Neurosurgery was already consulted. Repeat CT scan of the brain shows stable appearance of small right frontal hematoma. 2. Right maxillary and periorbital suspect cellulitis. 3. Contusion of the ocular adnexa, right eye. No ophthalmic intervention is required at this time=>Per ophthalmology consult 05/30/17 4. Cystic lesion in the left maxillary alveolar ridge measuring 1.4 x 2.1 cm with involvement of the root of the left first maxillary incisor. * Patient reports that he had possible abscess after his dental procedure which was prior to his recent fall. On antibiotics for now. * Per notes=> Patient to follow up with oral and maxillofacial surgeon as outpatient 5. Superimposed yeast infection/overgrowth due to IV ABX 6. Diarrhea -> ABX associated due to Clinda 7. Essential hypertension. 8. Chronic back pain w/sciatica=> Rx [place] (-)MRSA Nares INVASIVES: PIV ABX ALLERGY: KNDA CURRENT ABX: Clinda IV #4 + Start Diflucan #2 ID PLAN 1.Doing well -- plan for DC today his right eye developed crusted blepharitis - - will provide Polytrim eye Gtt 2. When cleared for DC home; patient may DC on AUGMENTIN 875mg po BID x 14 day + Diflucan 100mg po daily x 14 days * => he is unclear when he can secure oral surgeon appointment and he has evidence of dental abscess warranting longer course of PO ABX. * I gave him written Rx for Polytrim eye gtt 1 gtt OD Q4H . Problems: Consultation Date/Type/Reason Admit Date/Time May 29, 2017 at 12:36 Initial Consult Date 05/29/17 Type of Consultation: ID Exam/Review of Systems Vital Signs Vitals Vital Signs Date Time Temp Pulse Resp B/P Pulse Ox O2 Delivery O2 Flow Rate FiO2 06/02/17 11:20 98.5 80 18 110/64 100 05/29/17 14:00 Room Air Intake and Output 06/01/17 06/01/17 06/02/17 15:00 23:00 07:00 Intake Total 50 ml 1300 ml 700 ml Output Total 1400 ml 600 ml Balance 50 ml -100 ml 100 ml Results Result Diagram: 06/02/17 0701 06/02/17 0701 Results 24 hrs Laboratory Tests Test 06/02/17 07:01 White Blood Count 6.0 Red Blood Count 4.20 L Hemoglobin 12.6 L Hematocrit 38.9 L Mean Corpuscular Volume 92.6 Mean Corpuscular Hemoglobin 30.0 Mean Corpuscular Hemoglobin Concent 32.4 Red Cell Distribution Width 12.7 Platelet Count 317 Mean Platelet Volume 8.4 Neutrophils % 50.5 Lymphocytes % 29.5 Monocytes % 9.4 Eosinophils % 9.9 H Basophils % 0.5 Nucleated Red Blood Cells % 0.0 Neutrophils # 3.0 Lymphocytes # 1.8 Monocytes # 0.6 Eosinophils # 0.6 H Basophils # 0.0 Nucleated Red Blood Cells # 0.0 Sodium Level 139 Potassium Level 4.4 Chloride Level 100 Carbon Dioxide Level 26 Anion Gap 17 H Blood Urea Nitrogen 20 Creatinine 1.05 Glucose Level 83 Calcium Level 9.4 Medications Medications Current Medications Loratadine (Claritin) 10 mg DAILY PO Last administered on 06/02/17 07:43; Admin Dose 10 MG; Start 05/30/17 at 09:00 Sodium Chloride ([place]) 1 spray DAILY NASAL Last administered on 06/02/17 07 :43; Admin Dose 1 SPRAY; Start 05/29/17 at 13:30 Ondansetron HCl (Zofran Inj) 4 mg Q6H PRN IV NAUSEA AND/OR VOMITING; Start 05/29 at 13:00 Acetaminophen (Tylenol Tab) 650 mg Q6H PRN PO PAIN LEVEL 1-3 OR FEVER; Start at 13:00 Acetaminophen (Tylenol Supp) 650 mg Q6H PRN WI PAIN LEVEL 1-3 OR FEVER; Start 05/29/17 at 13:00 Docusate Sodium (Colace) 100 mg Q12H PRN PO CONSTIPATION; Start 05/29/17 at 13: 00 Magnesium Hydroxide (Milk Of Mag) 30 ml DAILY PRN PO CONSTIPATION; Start at 13:00 Bisacodyl (Dulcolax Supp) 10 mg DAILY PRN WI CONSTIPATION; Start 05/29/17 at 13: 00 Famotidine (Pepcid) 20 mg Q12 PO Last administered on 06/02/17 07:44; Admin Dose 20 MG; Start 05/29/17 at 21:00 Alprazolam (Xanax) 2 mg BID PRN PO ANXIETY Last administered on 06/01/17 22:27 ; Admin Dose 2 MG; Start 05/29/17 at 16:00 Carisoprodol (Soma) 350 mg BID PRN PO MUSCLE SPASMS Last administered on 21:03; Admin Dose 350 MG; Start 05/29/17 at 16:00 Diphenhydramine HCl 50 mg 50 mg Q6H PRN PO ITCHING Last administered on 07:44; Admin Dose 50 MG; Start 05/29/17 at 16:00 Clindamycin HCl/ Dextrose (Cleocin 600 Mg/ D5W (Pmx)) 50 ml @ 50 mls/hr Q6 IVPB Last administered on 06/02/17 05:39; Admin Dose 50 MLS/HR; Start 05/29/17 at 18 :00 Saccharomyces Boulardii (Florastor) 250 mg BID PO Last administered on 07:44; Admin Dose 250 MG; Start 05/29/17 at 21:00 Tramadol HCl (Ultram) 100 mg Q6H PRN PO PAIN Last administered on 06/02/17 13: 27; Admin Dose 100 MG; Start 05/31/17 at 13:30 Lisinopril (Zestril) 10 mg BID PO Last administered on 06/01/17 21:05; Admin Dose 10 MG; Start 06/01/17 at 21:00 Loperamide HCl (Imodium Cap) 2 mg QID PRN PO DIARRHEA Last administered on 13:26; Admin Dose 2 MG; Start 06/01/17 at 14:30 Fluconazole (Diflucan) 100 mg DAILY PO Last administered on 06/02/17 08:50; Admin Dose 100 MG; Start 06/02/17 at 09:00; Stop 06/15/17 at 23:00 LISSA LYONS NP Jun 02, 2017 13:49
[2017-06-02] MEDS ORDERED: POLYMYXIN/TRIMETHOPRIM 10 ML OPH RIGHT EYE ONE (14:00)
[2017-06-07] MEDS ORDERED: BEN25 PO (14:02)
== END 2017-06-02 15:12 | disposition home or self-care (01) | DRG 86 ==
LOC: FTE 10:41 → TEL 12:36
PROVIDERS: ADMIT Internal Medicine; ATTEND Internal Medicine
DX: S06.340A Traumatic hemorrhage of right cerebrum without loss of consciousness, initial encounter (principal); L03.213 Periorbital cellulitis; G62.9 Polyneuropathy, unspecified; I10 Essential (primary) hypertension; F41.9 Anxiety disorder, unspecified; S05.11XA Contusion of eyeball and orbital tissues, right eye, initial encounter; W18.09XA Striking against other object with subsequent fall, initial encounter; M27.40 Unspecified cyst of jaw; R26.89 Other abnormalities of gait and mobility; F17.200 Nicotine dependence, unspecified, uncomplicated; Y92.096 Garden or yard of other non-institutional residence as the place of occurrence of the external cause; Y93.H2 Activity, gardening and landscaping; Z87.39 Personal history of other diseases of the musculoskeletal system and connective tissue
CPT/HCPCS: 70450; 70486; 80048; 80053; 80061; 83036; 83735; 84100; 84436; 84443; 84479; 85025; 85610; 85730; 87081; 96365; 96375; 97162; J1450; J1953; J2270; J7030

== ENCOUNTER 2017-06-04 23:31 | Inpatient (IN) | END 2017-06-08 20:35 | disposition home or self-care (01) | DRG 91 | DX: R26.81 Unsteadiness on feet (principal); G93.40 Encephalopathy, unspecified; N17.9 Acute kidney failure, unspecified; L03.211 Cellulitis of face; L03.213 Periorbital cellulitis; E78.5 Hyperlipidemia, unspecified; I10 Essential (primary) hypertension; G62.9 Polyneuropathy, unspecified; F17.210 Nicotine dependence, cigarettes, uncomplicated; E86.0 Dehydration; M54.30 Sciatica, unspecified side; K06.2 Gingival and edentulous alveolar ridge lesions associated with trauma; Z87.820 Personal history of traumatic brain injury; Z91.81 History of falling ==

== ENCOUNTER 2017-07-09 10:31 | Emergency (ER) | payer OTHER ==
[~2017-07-09] VITALS: Ht 167.6 cm; Wt 78.5 kg
[~2017-07-09 10:31] MED LIST changes: -ACET500C5 PO; +ALPR2TAB PO; -AZIT250T94 PO; +BACI3.5O6 BOTH EYES; +BEN25 PO; +BEN50 PO; +CARI350T29 PO; -D-ME118S6 PO; +FLUC100T PO; +HYDR-902 PO; +HYDR-905 PO; -IBUP-1542 PO; -IBUP800T25 PO; +LISI10TA2 PO; -LORA10CA PO; +MELO-109 PO; -NAPR-260 PO; +OMEP20CA16 PO; -OSLT75C PO; -SODI126M NASAL; +Saccharomyces Boulardii PO; -TRAM50TA2 PO; -UDROBDM PO; +ZOLP10TA5 PO
[2017-07-09 11:26] VITALS: Ht 167.6 cm; Wt 78.5 kg
[2017-07-09] MEDS ORDERED: KETOROLAC 60 MG INJ IM STA (12:43)
[2017-07-09] MEDS ORDERED: TRAM50TA2 PO (12:44)
--- NOTE | 2017-07-09 12:59 | ERD ---
ER Documentation Chief Complaint Date/Time DATE: 07/09/17 TIME: 12:56 Chief Complaint low back pain radiate down left leg x 3 days HPI 57-year-old male coming in complaining of left lower back pain with nerve pain extending down his left leg. Patient states he has a long history of sciatic pain in the past and this is the same as his previous pain. Patient denies any recent falls. Denies any numbness or tingling down his legs. Denies any fevers. Denies change in urination or bowel movement. Denies numbness within the saddle region. ROS All systems reviewed and are negative except as per history of present illness. Medications Home Meds Active Scripts Tramadol HCl (Tramadol HCl) 50 Mg Tablet, 50 MG PO Q4 Y for PAIN, #20 TAB Prov:LEXY KATE PA-C 07/09/17 Bacitracin/Polymyxin B Sulfate (POLYCIN EYE OINTMENT) 3.5 Gm Oint...g., 1 APPLIC BOTH EYES BID, #2 Prov:THALIA MCCOY MD 06/08/17 Diphenhydramine Hcl* (Benadryl*) 25 Mg Cap, 25 MG PO Q6H Y for ITCHING, #30 CAP Prov:THALIA MCCOY MD 06/07/17 Hydrocodone/Acetaminophen ([place] 7.5-325 Tablet) 1 Each Tablet, 1 EACH PO Q4, # 30 TAB Prov:KIARRA GUERRA 06/02/17 Lisinopril* (Lisinopril*) 10 Mg Tablet, 10 MG PO BID for 30 Days, TAB Prov:KIARRA GUERRA 06/02/17 Fluconazole* (Diflucan*) 100 Mg Tablet, 100 MG PO DAILY for 14 Days, TAB Prov:KIARRA GUERRA 06/02/17 [Saccharomyces Boulardii] 250 MG CAP No Conflict Check, 250 MG PO BID for 30 Days Prov:KIARRA GUERRA 05/29/17 Reported Medications Zolpidem Tartrate* (Zolpidem Tartrate*) 10 Mg Tablet, 10 MG PO QHS Y for INSOMNIA, #30 TAB 05/29/17 Hydrocodone/Acetaminophen ([place] 10-325 Tablet) 1 Each Tablet, 1 EACH PO Q6 Y for SEVERE PAIN LEVEL 7-10, TAB 05/29/17 Meloxicam* (Meloxicam*) 7.5 Mg Tablet, 15 MG PO DAILY, #30 TAB 05/29/17 Alprazolam* (Xanax*) 2 Mg Tablet, 2 MG PO BID Y for ANXIETY, TAB 05/29/17 Carisoprodol* (Carisoprodol*) 350 Mg Tablet, 350 MG PO BID Y for MUSCLE SPASMS, TAB 05/29/17 Diphenhydramine Hcl* (Benadryl*) 50 Mg Cap, 50 MG PO Q6 Y for ITCHING, CAP 05/29/17 Omeprazole* (Omeprazole*) 20 Mg Capsule.dr, 20 MG PO DAILY, #30 CAP 05/29/17 Allergies Allergies: Coded Allergies: No Known Allergy (Unverified , 02/03/17) PMhx/Soc History of Surgery: No Anesthesia Reaction: No Hx Neurological Disorder: Yes (change in gait ) Hx Respiratory Disorders: No Hx Cardiac Disorders: Yes (htn) Hx Psychiatric Problems: No Hx Miscellaneous Medical Probl: No Hx Alcohol Use: No Hx Substance Use: No Hx Tobacco Use: No Physical Exam Vitals Vital Signs Date Time Temp Pulse Resp B/P Pulse Ox O2 Delivery O2 Flow Rate FiO2 07/09/17 11:26 97.5 75 18 118/67 98 Physical Exam GENERAL: The patient is well-appearing, well-nourished, in no acute distress CHEST: Clear to auscultation bilaterally. There are no rales, wheezes or rhonchi. HEART: Regular rate and rhythm. No murmurs, clicks, rubs or gallops. No S3 or S4. BACK: No midline or flank tenderness. Tender to palpation of the left paraspinous muscles extending down the left buttock EXTREMITIES: Equal pulses bilaterally. There is no peripheral clubbing, cyanosis or edema. No focal swelling or erythema. Full range of motion. Grossly neurovascularly intact. NEUROLOGIC: Alert and oriented. Cranial nerves II through XII intact. Motor strength in all 4 extremities with 5 out of 5 strength. Sensation grossly intact. Normal speech and gait. Babinski negative. DTR 2+ throughout. SKIN: There is no apparent rash or petechiae. The skin is warm and dry. Results 24 hrs Current Medications Medications (Trade) Dose Ordered Sig/Yessy Route PRN Reason Start Time Stop Time Status Last Admin Dose Admin Ketorolac Tromethamine (Toradol) 60 mg ONCE STAT IM 07/09/17 12:43 07/09/17 12:44 DC Procedures/MDM ER course: IM Toradol given the ED. MDM: I have low suspicion for discitis, epidural abscess, or cauda equina. Patient's pain is associated with sciatic nerve as it is in the correct distribution in same as his previous sciatic pain in the past. Patient denies any numbness or tingling down the legs and is able to ambulate without difficulty. I do not feel there is indication for blood work or imaging. Patient has had no recent falls or recent traumatic injuries. Patient will be given pain medication recommend follow-up with primary care within 1-2 to days for close evaluation. Departure Diagnosis: Primary Impression: Back pain Condition: Stable Patient Instructions: Back Pain W/ Sciatica Referrals: IVY UGALDE (PCP) [facility] Additional Instructions: FOLLOW UP WITH YOUR PRIMARY CARE PHYSICIAN TOMORROW.Return to this facility if you are not improving as expected. LEXY KATE PA-C Jul 09, 2017 12:59
[2017-07-09 13:42] VITALS: BP 110/65; PULSE 70; RESP 17; TEMP 97.9
== END 2017-07-09 13:42 | disposition home or self-care (01) ==
LOC: FTE 10:31
DX: M54.5 Low back pain (principal); I10 Essential (primary) hypertension
CPT/HCPCS: 96372; J1885; Z7502

== ENCOUNTER 2017-08-10 13:09 | Emergency (ER) | payer OTHER ==
[~2017-08-10] VITALS: Ht 152.4 cm; Wt 78.0 kg
[~2017-08-10 13:09] MED LIST changes: -MELO-109 PO; +MELO-216 PO; +TRAM50TA2 PO
[2017-08-10 13:21] VITALS: Ht 152.4 cm; Wt 78.0 kg
--- NOTE | 2017-08-10 13:44 | ERD ---
ER Documentation Chief Complaint Date/Time DATE: 08/10/17 TIME: 13:39 Chief Complaint Complains of left leg pain Hx of sciatica HPI 57-year-old department for left leg pain that is nontraumatic. He has history of sciatica. Stated that he has tramadol at home but he lost it. He also asked for a Toradol shot. Also complains of mild rash to his lower back that has been scratching for a couple of weeks. And is also asking for hydrocortisone cream for this. Denies headache, dizziness, blurred vision, neck pain, shoulder pain, chest pain , abdominal pain, nausea, vomiting, trauma, injury, falls, numbness or tingling sensation, difficulty walking, fever, chills. No known drug allergies. Past medical history of sciatica. Social: Not working at this time. Denies smoking, use of alcohol, illegal drugs. ROS All systems reviewed and are negative except as per history of present illness. Medications Home Meds Active Scripts Hydrocortisone* Topical (Hydrocortisone* Topical) 2.5%-28.3 Gm Cream..g., 1 APPLIC TOP BID, #1 TUB Prov:KENIA ALVAREZ 08/10/17 Tramadol HCl (Tramadol HCl) 50 Mg Tablet, 50 MG PO Q4 Y for PAIN, #20 TAB Prov:KENIA ALVAREZ 08/10/17 Ibuprofen* (Motrin*) 800 Mg Tab, 800 MG PO Q8 Y for PAIN AND OR ELEVATED TEMP, # 15 TAB Prov:KENIA ALVAREZ 08/10/17 Cyclobenzaprine Hcl* (Cyclobenzaprine Hcl*) 10 Mg Tablet, 10 MG PO Q12 Y for PAIN, #15 TAB Prov:KENIA ALVAREZ 08/10/17 Tramadol HCl (Tramadol HCl) 50 Mg Tablet, 50 MG PO Q4 Y for PAIN, #20 TAB Prov:LEXY KATE PA-C 07/09/17 Bacitracin/Polymyxin B Sulfate (POLYCIN EYE OINTMENT) 3.5 Gm Oint...g., 1 APPLIC BOTH EYES BID, #2 Prov:THALIA MCCOY MD 06/08/17 Diphenhydramine Hcl* (Benadryl*) 25 Mg Cap, 25 MG PO Q6H Y for ITCHING, #30 CAP Prov:THALIA MCCOY MD 06/07/17 Hydrocodone/Acetaminophen ([place] 7.5-325 Tablet) 1 Each Tablet, 1 EACH PO Q4, # 30 TAB Prov:TOBIELAINAKIARRA 06/02/17 Lisinopril* (Lisinopril*) 10 Mg Tablet, 10 MG PO BID for 30 Days, TAB Prov:TOBIKIARRA DELANEY 06/02/17 Fluconazole* (Diflucan*) 100 Mg Tablet, 100 MG PO DAILY for 14 Days, TAB Prov:TOBIKIARRA DELANEY 06/02/17 [Saccharomyces Boulardii] 250 MG CAP No Conflict Check, 250 MG PO BID for 30 Days Prov:KIARRA GUERRA 05/29/17 Reported Medications Zolpidem Tartrate* (Zolpidem Tartrate*) 10 Mg Tablet, 10 MG PO QHS Y for INSOMNIA, #30 TAB 05/29/17 Hydrocodone/Acetaminophen ([place] 10-325 Tablet) 1 Each Tablet, 1 EACH PO Q6 Y for SEVERE PAIN LEVEL 7-10, TAB 05/29/17 Meloxicam* (Meloxicam*) 7.5 Mg Tablet, 15 MG PO DAILY, #30 TAB 05/29/17 Alprazolam* (Xanax*) 2 Mg Tablet, 2 MG PO BID Y for ANXIETY, TAB 05/29/17 Carisoprodol* (Carisoprodol*) 350 Mg Tablet, 350 MG PO BID Y for MUSCLE SPASMS, TAB 05/29/17 Diphenhydramine Hcl* (Benadryl*) 50 Mg Cap, 50 MG PO Q6 Y for ITCHING, CAP 05/29/17 Omeprazole* (Omeprazole*) 20 Mg Capsule.dr, 20 MG PO DAILY, #30 CAP 05/29/17 Allergies Allergies: Coded Allergies: No Known Allergy (Unverified , 08/10/17) PMhx/Soc History of Surgery: No Anesthesia Reaction: No Hx Neurological Disorder: Yes (change in gait ) Hx Respiratory Disorders: No Hx Cardiac Disorders: Yes (htn) Hx Psychiatric Problems: No (adhd) Hx Miscellaneous Medical Probl: No Hx Alcohol Use: No Hx Substance Use: No Hx Tobacco Use: No Physical Exam Vitals Vital Signs Date Time Temp Pulse Resp B/P Pulse Ox O2 Delivery O2 Flow Rate FiO2 10/14/17 13:21 97.7 83 20 100/62 97 Physical Exam Const: [] Head: Atraumatic Eyes: Normal Conjunctiva ENT: Normal External Ears, Nose and Mouth. Neck: Full range of motion..~ No meningismus. Resp: Clear to auscultation bilaterally Cardio: Regular rate and rhythm, no murmurs Abd: Soft, non tender, non distended. Normal bowel sounds Skin: No petechiae or rashes Back: No midline or flank tenderness. Left straight leg test is positive. C- spine/T-spine/L-spine are in midline and is good and full range of motion with no discoloration/swelling/tenderness/deformity. No neurovascular deficits. Ext: No cyanosis, or edema Neur: Awake and alert x 4. Cranial nerves II through XII intact. Romberg test is negative. Psych: Normal Mood and Affect Results 24 hrs Current Medications Medications (Trade) Dose Ordered Sig/Yessy Route PRN Reason Start Time Stop Time Status Last Admin Dose Admin Ketorolac Tromethamine (Toradol) 60 mg ONCE STAT IM 08/10/17 13:48 08/10/17 13:49 DC 08/10/17 13:57 Procedures/MDM 57-year-old department for left leg pain that is nontraumatic. He has history of sciatica. Stated that he has tramadol at home but he lost it. He also asked for a Toradol shot. Also complains of mild rash to his lower back that has been scratching for a couple of weeks. And is also asking for hydrocortisone cream for this. Denies headache, dizziness, blurred vision, neck pain, shoulder pain, chest pain , abdominal pain, nausea, vomiting, trauma, injury, falls, numbness or tingling sensation, difficulty walking, fever, chills. No known drug allergies. Past medical history of sciatica. Social: Not working at this time. Denies smoking, use of alcohol, illegal drugs. Physical exam: Left straight leg test is positive. Mild pruritic rash to the lower back. No vesicular lesions. Romberg test is negative. Cranial nerves II through XII are intact. Disease process was explained to the patient. He verbalized understanding and agreed with the plan of care and follow-up care. Differential diagnosis: Fracture versus contusion versus sprain versus lumbar strain versus sciatica Final diagnosis: Sciatica, mild rash Final Diagnosis: Sciatica, Medication Refill Prescription: Flexeril. Motrin. Hydrocortisone cream. Follow-up with primary care physician the next 24-48 hours. Come back to emergency department for any new symptoms or any worsening symptoms. All questions and concerns were answered. Patient verbalized understanding and agreed with the plan of care. Hemodynamically stable on discharge. Departure Diagnosis: Primary Impression: Sciatica Condition: Stable Additional Instructions: Follow-up with primary care physician the next 24-48 hours. Come back to emergency department for any new symptoms or any worsening symptoms. All questions and concerns were answered. Patient verbalized understanding and agreed with the plan of care. KENIA ALVAREZ Aug 10, 2017 13:44
[2017-08-10] MEDS ORDERED: CYCL-319 PO (13:47)
[2017-08-10] MEDS ORDERED: IBUP800T25 PO (13:48)
[2017-08-10] MEDS ORDERED: KETOROLAC 60 MG INJ IM STA (13:48)
[2017-08-10] MEDS ORDERED: TRAM50TA2 PO (14:04)
[2017-08-10] MEDS ORDERED: HC30CR25 TOP (14:05)
== END 2017-08-10 13:59 | disposition home or self-care (01) ==
LOC: FTE 13:09
DX: M54.32 Sciatica, left side (principal); I10 Essential (primary) hypertension
CPT/HCPCS: 96372; J1885; Z7502

== ENCOUNTER 2017-09-04 13:55 | Emergency (ER) | payer OTHER ==
[~2017-09-04] VITALS: Wt 76.8 kg
[~2017-09-04 13:55] MED LIST changes: +CYCL-319 PO; +HC30CR25 TOP; +IBUP800T25 PO
--- NOTE | 2017-09-04 15:20 | ERD ---
ER Documentation Chief Complaint Chief Complaint l. back pain HPI 37y/o male with history of chronic back pain with frequent visits to the ED requesting pain medication presents to the ED c/o acute on chronic lower back pain for the last 7 days. Pain is dull, abdomen/10, worsened by lateral rotation and bending forward. Treatment attempted: Opiates, muscle relaxants, with good control of the pain. No recent history of trauma. Denies limb weakness , numbness or incontinence. No urinary symptoms. Denies fever chills no rash ROS SYSTEMIC symptoms: no fever, chills, no night sweats, no weight loss EYE symptoms: No blurred vision, no eye discharge OTOLARYNGEAL symptoms: No hearing loss. No ear pain, no sore throat CARDIOVASCULAR symptoms: No chest pain or discomfort, no palpitations. PULMONARY symptoms: No dyspnea, no cough, no wheezing. GASTROINTESTINAL symptoms: No abdominal pain, no nausea, no vomiting, no diarrhea MUSCULOSKELETAL symptoms: As per HPI NEUROLOGY symptoms: No confusion, no syncope, no numbness or tingling. SKIN no rashes Medications Home Meds Active Scripts Baclofen* (Baclofen*) 10 Mg Tablet, 10 MG PO Q8 for MUSCLE SPASMS, #20 TAB Prov:ANGELINE COOK MD 09/04/17 Hydrocodone/Acetaminophen ([place] 5-325 Tablet) 1 Each Tablet, 1 EACH PO QHS, # 20 TAB Prov:ANGELINE COOK MD 09/04/17 Hydrocortisone* Topical (Hydrocortisone* Topical) 2.5%-28.3 Gm Cream..g., 1 APPLIC TOP BID, #1 TUB Prov:KENIA ALVAREZ 08/10/17 Tramadol HCl (Tramadol HCl) 50 Mg Tablet, 50 MG PO Q4 Y for PAIN, #20 TAB Prov:KENIA ALVAREZ 08/10/17 Ibuprofen* (Motrin*) 800 Mg Tab, 800 MG PO Q8 Y for PAIN AND OR ELEVATED TEMP, # 15 TAB Prov:KENIA ALVAREZ 08/10/17 Cyclobenzaprine Hcl* (Cyclobenzaprine Hcl*) 10 Mg Tablet, 10 MG PO Q12 Y for PAIN, #15 TAB Prov:KENIA ALVAREZ 08/10/17 Tramadol HCl (Tramadol HCl) 50 Mg Tablet, 50 MG PO Q4 Y for PAIN, #20 TAB Prov:LEXY KATE PA-C 07/09/17 Bacitracin/Polymyxin B Sulfate (POLYCIN EYE OINTMENT) 3.5 Gm Oint...g., 1 APPLIC BOTH EYES BID, #2 Prov:THALIA MCCOY MD 06/08/17 Diphenhydramine Hcl* (Benadryl*) 25 Mg Cap, 25 MG PO Q6H Y for ITCHING, #30 CAP Prov:THALIA MCCOY MD 06/07/17 Hydrocodone/Acetaminophen ([place] 7.5-325 Tablet) 1 Each Tablet, 1 EACH PO Q4, # 30 TAB Prov:KIARRA GUERRA 06/02/17 Lisinopril* (Lisinopril*) 10 Mg Tablet, 10 MG PO BID for 30 Days, TAB Prov:KIARRA GUERRA 06/02/17 Fluconazole* (Diflucan*) 100 Mg Tablet, 100 MG PO DAILY for 14 Days, TAB Prov:KIARRA GUERRA 06/02/17 [Saccharomyces Boulardii] 250 MG CAP No Conflict Check, 250 MG PO BID for 30 Days Prov:KIARRA GUERRA 05/29/17 Reported Medications Zolpidem Tartrate* (Zolpidem Tartrate*) 10 Mg Tablet, 10 MG PO QHS Y for INSOMNIA, #30 TAB 05/29/17 Hydrocodone/Acetaminophen ([place] 10-325 Tablet) 1 Each Tablet, 1 EACH PO Q6 Y for SEVERE PAIN LEVEL 7-10, TAB 05/29/17 Meloxicam* (Meloxicam*) 7.5 Mg Tablet, 15 MG PO DAILY, #30 TAB 05/29/17 Alprazolam* (Xanax*) 2 Mg Tablet, 2 MG PO BID Y for ANXIETY, TAB 05/29/17 Carisoprodol* (Carisoprodol*) 350 Mg Tablet, 350 MG PO BID Y for MUSCLE SPASMS, TAB 05/29/17 Diphenhydramine Hcl* (Benadryl*) 50 Mg Cap, 50 MG PO Q6 Y for ITCHING, CAP 05/29/17 Omeprazole* (Omeprazole*) 20 Mg Capsule.dr, 20 MG PO DAILY, #30 CAP 05/29/17 Allergies Allergies: Coded Allergies: No Known Allergy (Unverified , 08/10/17) PMhx/Soc History of Surgery: No Anesthesia Reaction: No Hx Neurological Disorder: Yes (change in gait ) Hx Respiratory Disorders: No Hx Cardiac Disorders: Yes (htn) Hx Psychiatric Problems: No (adhd) Hx Miscellaneous Medical Probl: Yes (HTN, CHOLESTEROL, PRE DIABETES ) Hx Alcohol Use: No Hx Substance Use: No Hx Tobacco Use: Yes Smoking Status: Current some day smoker Physical Exam Vitals Vital Signs Date Time Temp Pulse Resp B/P Pulse Ox O2 Delivery O2 Flow Rate FiO2 09/04/17 13:58 98.7 74 20 123/81 97 Physical Exam Patient is in no acute distress, vital signs stable. Alert and fully oriented. EYES: PERRLA, EOMI, Sclera and conjunctiva appear normal. EARS: Canals clear, tympanic membranes WNL THROAT: Normal oropharynx. NECK: Supple, No lymphadenopathy. Full ROM without pain or tenderness. HEART: RRR, no rubs, murmurs, clicks or gallops. LUNGS: Clear to auscultation. ABDOMEN: Soft, non-tender without masses or hepatosplenomegaly. EXTREMITIES: No edema bilaterally. MUSC: Range of motion to lateral rotation, no deformity, vertebral tenderness, no signs of infection Procedures/MDM Low back pain: no red flags. Differential diagnosis: Acute musculoskeletal injury, herniated disc, urolithiasis, UTI, arthritis, degenerative disc disease. Low suspicion for vertebral fracture, cauda equina syndrome, psoas abscess. Neurovascular exam grossly intact. no clinical findings suggestive of acute infetious process, no acute deformity, no edema, no rashes. Most likely muscle sprain. The patient will be DC home with a Rx for Ibuprofen and [place] prn severe pain. The patient was instructed to follow up with PCP in 2-4 days, if the doctor is unavailable and the symptoms persist or worsen, the patient should return to the hospital immediately. Departure Diagnosis: Primary Impression: Chronic back pain Condition: Stable Additional Instructions: Thank you very much for allowing us to participate in your care. Your health and safety is our top priority at [facility]. Have prescriptions filled and follow precisely the directions on the label. Follow-up with primary care provider during the next 4 days and bring all the information and medications prescribed. If illness has not improved in 2 days, then make an appointment with primary care provider. If the provider is unavailable, return to the Emergency Department immediately. ANGELINE COOK MD Sep 04, 2017 15:20
[2017-09-04] MEDS ORDERED: BACL10TA PO (15:47)
[2017-09-04] MEDS ORDERED: HYDR-906 PO (15:47)
[2017-09-04] MEDS ORDERED: CYCL-319 PO (16:04)
== END 2017-09-04 16:07 | disposition home or self-care (01) ==
LOC: FTE 13:55
DX: M54.5 Low back pain (principal); I10 Essential (primary) hypertension; F17.210 Nicotine dependence, cigarettes, uncomplicated
CPT/HCPCS: 99284

== ENCOUNTER 2017-10-09 17:37 | Emergency (ER) | payer OTHER ==
[~2017-10-09] VITALS: Ht 165.1 cm; Wt 80.0 kg
[~2017-10-09 17:37] MED LIST changes: +BACL10TA PO; +HYDR-906 PO
[2017-10-09 17:43] VITALS: Ht 165.1 cm; Wt 80.0 kg
[2017-10-09 18:53] LABS: BASOPHIL # 0.1 10^3/ul (0.0-0.1); BASOPHILS % 1.2 % (0.0-2.0); EOSINOPHILS # 0.3 10^3/ul (0.0-0.5); EOSINOPHILS % 5.1 % (0.0-7.0); HEMATOCRIT 40.2 % (42.0-52.0); HEMOGLOBIN 12.9 g/dl (14.0-18.0); LYMPHOCYTES # 1.5 10^3/ul (0.8-2.9); LYMPHOCYTES % 25.5 % (15.0-51.0); MEAN CORPUSCULAR HEMOGLOBIN 30.3 pg (29.0-33.0); MEAN CORPUSCULAR HGB CONC 32.1 g/dl (32.0-37.0); MEAN CORPUSCULAR VOLUME 94.4 fl (82.0-101.0); MEAN PLATELET VOLUME 8.7 fl (7.4-10.4); MONOCYTE # 0.5 10^3/ul (0.3-0.9); MONOCYTES % 9.1 % (0.0-11.0); NEUTROPHIL # 3.5 10^3/ul (1.6-7.5); NEUTROPHILS % 58.9 % (39.0-77.0); PLATELET COUNT 292 10^3/UL (140-415); RED BLOOD COUNT 4.26 10^6/ul (4.70-6.10); RED CELL DISTRIBUTION WIDTH 11.9 % (11.5-14.5); WHITE BLOOD COUNT 5.9 10^3/ul (4.8-10.8)
[2017-10-09 19:15] LABS: ALANINE AMINOTRANSFERASE 51 IU/L (13-69); ALBUMIN/GLOBULIN RATIO 1.33; ALKALINE PHOSPHATASE 94 IU/L (42-121); ANION GAP 16 (8-16); ASPARTATE AMINO TRANSFERASE 32 IU/L (15-46); BLOOD UREA NITROGEN 37 mg/dl (7-20); CALCIUM 9.4 mg/dl (8.4-10.2); CARBON DIOXIDE 25 mmol/L (21-31); CHLORIDE 103 mmol/L (97-110); CREATININE 1.22 mg/dl (0.61-1.24); ETHANOL < 10.0 mg/dl; GLUCOSE 125 mg/dl (70-220); POTASSIUM 3.7 mmol/L (3.5-5.1); SODIUM 140 mmol/L (135-144)
[2017-10-09 20:30] LABS: BARBITURATES Negative (NEGATIVE); BENZODIAZEPINES Positive (NEGATIVE); CANNABINOIDS Negative (NEGATIVE); COCAINE Negative (NEGATIVE); OPIATES Positive (NEGATIVE)
[2017-10-09] MEDS ORDERED: ENAL20TA PO (21:03)
--- NOTE | 2017-10-09 21:03 | PSY ---
Date/Time of Note Date/Time of Note DATE: 10/09/17 TIME: 20:58 Psychiatric Subjective Eval Subjective Evaluation Patient location: emergency Chief Complaint: having auditory hallucinations, telling him to jump up bridge Reason for consult: Suicidal ideation History of present illness Pt is a 57 year old male who brought himself to the ER to "get checked out." He reports he is here for liver disease. Patient then admits to SI. However, he drifts off to sleep. Would wake up, tell part of his story, close his eyes and drift off to sleep. Per report, patient kicked out of his house two weeks ago by his . He has been homeless since that time. He reported on admission hearing voices telling him to jump [place] the [place] or shoot himself (he does not have a gun) Pt is a very poor historian. Past psychiatric history Was admitted inpatient in 1986 on a "twenty day hold." In 1991, attempted to kill himself by "drinking sleeping pills." Hospitalization: yes Family History Unknown Medical history Problems Medical Problems: (1) Ataxia Status: Acute (2) Back pain Status: Acute (3) Bronchitis Status: Acute (4) Chronic back pain Status: Acute (5) Chronic sciatica of left side Status: Acute (6) Chronic sciatica of left side Status: Acute (7) Closed head injury Status: Acute (8) Cough Status: Acute (9) Influenza-like symptoms Status: Acute (10) Intraparenchymal hemorrhage of brain Status: Acute (11) Pain Status: Acute (12) Sciatica Status: Acute (13) Upper respiratory infection Status: Acute Allergies: Coded Allergies: No Known Allergy (Unverified , 10/09/17) Substance Abuse Substance use: No known substance abuse Social History Marital status: Level of education: unknown DPA/Conservatorship: No Occupation/Halfway: unknown Psychiatric Objective Eval Mental Status Examination: Appearance: Poor Hygiene Eye Contact: Poor Psychomotor Activity: Slow Behavior: Other Speech: Soft AFFECT: Flat Mood: Depressed Thought Content: Hallucinations Suicidal: Yes Homicidal: No On 72 hour hold: No Orientation: x2 Cognition: Drowsy Insight: Impared Judgement: Impared Laboratory Results Laboratory Tests Test 10/09/17 18:40 10/09/17 19:45 White Blood Count 5.910^3/ul Red Blood Count 4.2610^6/ul Hemoglobin 12.9g/dl Hematocrit 40.2% Mean Corpuscular Volume 94.4fl Mean Corpuscular Hemoglobin 30.3pg Mean Corpuscular Hemoglobin Concent 32.1g/dl Red Cell Distribution Width 11.9% Platelet Count 30835^3/UL Mean Platelet Volume 8.7fl Neutrophils % 58.9% Lymphocytes % 25.5% Monocytes % 9.1% Eosinophils % 5.1% Basophils % 1.2% Nucleated Red Blood Cells % 0.0/100WBC Neutrophils # 3.510^3/ul Lymphocytes # 1.510^3/ul Monocytes # 0.510^3/ul Eosinophils # 0.310^3/ul Basophils # 0.110^3/ul Nucleated Red Blood Cells # 0.010^3/ul Sodium Level 140mmol/L Potassium Level 3.7mmol/L Chloride Level 103mmol/L Carbon Dioxide Level 25mmol/L Anion Gap 16 Blood Urea Nitrogen 37mg/dl Creatinine 1.22mg/dl Glucose Level 125mg/dl Calcium Level 9.4mg/dl Total Bilirubin 0.0mg/dl Direct Bilirubin 0.00mg/dl Indirect Bilirubin 0.0mg/dl Aspartate Amino Transf (AST/SGOT) 32IU/L Alanine Aminotransferase (ALT/SGPT) 51IU/L Alkaline Phosphatase 94IU/L Total Protein 7.0g/dl Albumin 4.0g/dl Globulin 3.00g/dl Albumin/Globulin Ratio 1.33 Ethyl Alcohol Level < 10.0mg/dl Urine Opiates Screen Positive Urine Barbiturates Negative Urine Amphetamines Screen Negative Urine Benzodiazepines Screen Positive Urine Cocaine Screen Negative Urine Cannabinoids Negative Assessment and Plan Assessment/Diagnosis [place] I: Adjustment Disorder with Depressed Mood. Possible recurrent major depression given past hospital stays and overdose Recommendation/Plan Medication Management Per inpatient psychiatry Psychotherapy NA Pt. Caregiver/Family Education NA Follow-up/Disposition Recommend 5150 and transfer to inpatient psychiatry. Patient does not appear stable. He has a past history of psychiatric admissions and an overdose attempt. ESTELA GERMAN Oct 09, 2017 21:03
[2017-10-09] MEDS ORDERED: MELO-210 PO (21:04)
[2017-10-09] MEDS ORDERED: SIMV20TA PO (21:04)
[2017-10-09] MEDS ORDERED: METO-335 PO (21:05)
[2017-10-09] MEDS ORDERED: HYDR12.58 PO (21:05)
[2017-10-09] MEDS ORDERED: VENL75TA PO (21:06)
[2017-10-09] MEDS ORDERED: ALPR1TAB7 PO (21:07)
--- NOTE | 2017-10-09 21:26 | ERD ---
ER Documentation Chief Complaint Chief Complaint having auditory hallucinations, telling him to jump up bridge HPI Patient is a 57-year-old male with back pain who presents saying "I feel terrible". He said that his girlfriend does not want him back in the house. He is on a fixed income and is feeling depressed. He has suicidal ideation and says "I hear voices telling me to shoot myself". He says that he can get a gun in [place] although he does not have one here in [place]. Upon review of old medical records the patient has multiple visits to the ER since 2013. Review of the emergency department information exchange system shows visits to 2 separate emergency departments. ROS All systems reviewed and are negative except as per history of present illness. Medications Home Meds Reported Medications Alprazolam* (Alprazolam*) 1 Mg Tablet, 1 MG PO BID Y for ANXIETY, TAB 10/09/17 Venlafaxine Hcl* (Venlafaxine Hcl*) 75 Mg Tablet, 75 MG PO QAM, TAB 10/09/17 Metoprolol Succinate* (Toprol XL*) 25 Mg Tab.sr.24h, 25 MG PO QHS, #30 TAB 10/09/17 Hydrochlorothiazide* (Hydrochlorothiazide*) 12.5 Mg Tablet, 12.5 MG PO DAILY, # 30 TAB 10/09/17 Meloxicam* (Mobic*) 15 Mg Tablet, 15 MG PO DAILY, #30 TAB 10/09/17 Simvastatin* (Zocor*) 20 Mg Tablet, 20 MG PO QHS, #30 TAB 10/09/17 Enalapril Maleate* (Enalapril Maleate*) 20 Mg Tablet, 20 MG PO BID, TAB 10/09/17 Zolpidem Tartrate* (Zolpidem Tartrate*) 10 Mg Tablet, 10 MG PO QHS Y for INSOMNIA, #30 TAB 05/29/17 Hydrocodone/Acetaminophen ([place] 10-325 Tablet) 1 Each Tablet, 1 EACH PO TID Y for SEVERE PAIN LEVEL 7-10, TAB 05/29/17 Carisoprodol* (Carisoprodol*) 350 Mg Tablet, 350 MG PO BID Y for MUSCLE SPASMS, TAB 05/29/17 Diphenhydramine Hcl* (Benadryl*) 50 Mg Cap, 50 MG PO DAILY Y for ITCHING, CAP 05/29/17 Omeprazole* (Omeprazole*) 20 Mg Capsule.dr, 20 MG PO DAILY, #30 CAP 05/29/17 Discontinued Reported Medications Meloxicam* (Meloxicam*) 7.5 Mg Tablet, 15 MG PO DAILY, #30 TAB 05/29/17 Alprazolam* (Xanax*) 2 Mg Tablet, 2 MG PO BID Y for ANXIETY, TAB 05/29/17 Discontinued Scripts Cyclobenzaprine Hcl* (Cyclobenzaprine Hcl*) 10 Mg Tablet, 10 MG PO TID, #40 TAB Prov:ANGELINE COOK MD 09/04/17 Baclofen* (Baclofen*) 10 Mg Tablet, 10 MG PO Q8 for MUSCLE SPASMS, #20 TAB Prov:ANGEILNE COOK MD 09/04/17 Hydrocodone/Acetaminophen ([place] 5-325 Tablet) 1 Each Tablet, 1 EACH PO QHS, # 20 TAB Prov:ANGELINE COOK MD 09/04/17 Hydrocortisone* Topical (Hydrocortisone* Topical) 2.5%-28.3 Gm Cream..g., 1 APPLIC TOP BID, #1 TUB Prov:KENIA ALVAREZ 08/10/17 Tramadol HCl (Tramadol HCl) 50 Mg Tablet, 50 MG PO Q4 Y for PAIN, #20 TAB Prov:KENIA ALVAREZ 08/10/17 Ibuprofen* (Motrin*) 800 Mg Tab, 800 MG PO Q8 Y for PAIN AND OR ELEVATED TEMP, # 15 TAB Prov:KENIA ALVAREZ 08/10/17 Cyclobenzaprine Hcl* (Cyclobenzaprine Hcl*) 10 Mg Tablet, 10 MG PO Q12 Y for PAIN, #15 TAB Prov:KENIA ALVARZE 08/10/17 Tramadol HCl (Tramadol HCl) 50 Mg Tablet, 50 MG PO Q4 Y for PAIN, #20 TAB Prov:LEXY KATE PA-C 07/09/17 Bacitracin/Polymyxin B Sulfate (POLYCIN EYE OINTMENT) 3.5 Gm Oint...g., 1 APPLIC BOTH EYES BID, #2 Prov:THALIA MCCOY MD 06/08/17 Diphenhydramine Hcl* (Benadryl*) 25 Mg Cap, 25 MG PO Q6H Y for ITCHING, #30 CAP Prov:THALIA MCCOY MD 06/07/17 Hydrocodone/Acetaminophen ([place] 7.5-325 Tablet) 1 Each Tablet, 1 EACH PO Q4, # 30 TAB Prov:DESTINY GUERRANELL 06/02/17 Lisinopril* (Lisinopril*) 10 Mg Tablet, 10 MG PO BID for 30 Days, TAB Prov:TOBIELAINAKIARRA 06/02/17 Fluconazole* (Diflucan*) 100 Mg Tablet, 100 MG PO DAILY for 14 Days, TAB Prov:MARIKIARRA 06/02/17 [Saccharomyces Boulardii] 250 MG CAP No Conflict Check, 250 MG PO BID for 30 Days Prov:MARIKIARRA 05/29/17 Allergies Allergies: Coded Allergies: No Known Allergy (Unverified , 10/09/17) PMhx/Soc History of Surgery: No Anesthesia Reaction: No Hx Neurological Disorder: Yes (change in gait ) Hx Respiratory Disorders: No Hx Cardiac Disorders: Yes (htn) Hx Psychiatric Problems: No (adhd) Hx Miscellaneous Medical Probl: Yes (HTN, CHOLESTEROL, PRE DIABETES ) Hx Alcohol Use: No Hx Substance Use: No Hx Tobacco Use: Yes Smoking Status: Never smoker FmHx Family History: diabetes Physical Exam Vitals Vital Signs Date Time Temp Pulse Resp B/P Pulse Ox O2 Delivery O2 Flow Rate FiO2 10/09/17 17:43 98.1 67 18 103/67 99 Physical Exam Const: No acute distress Head: Atraumatic Eyes: Normal Conjunctiva ENT: Normal External Ears, Nose and Mouth. Neck: Full range of motion..~ No meningismus. Resp: Clear to auscultation bilaterally Cardio: Regular rate and rhythm, no murmurs Abd: Soft, non tender, non distended. Normal bowel sounds Skin: No petechiae or rashes Back: No midline or flank tenderness Ext: No cyanosis, or edema Neur: Awake and alert Psych: Suicidal ideation with plan Result Diagram: 10/09/17 1840 10/09/17 1840 Results 24 hrs Laboratory Tests Test 10/09/17 18:40 10/09/17 19:45 White Blood Count 5.910^3/ul Red Blood Count 4.2610^6/ul Hemoglobin 12.9g/dl Hematocrit 40.2% Mean Corpuscular Volume 94.4fl Mean Corpuscular Hemoglobin 30.3pg Mean Corpuscular Hemoglobin Concent 32.1g/dl Red Cell Distribution Width 11.9% Platelet Count 07672^3/UL Mean Platelet Volume 8.7fl Neutrophils % 58.9% Lymphocytes % 25.5% Monocytes % 9.1% Eosinophils % 5.1% Basophils % 1.2% Nucleated Red Blood Cells % 0.0/100WBC Neutrophils # 3.510^3/ul Lymphocytes # 1.510^3/ul Monocytes # 0.510^3/ul Eosinophils # 0.310^3/ul Basophils # 0.110^3/ul Nucleated Red Blood Cells # 0.010^3/ul Sodium Level 140mmol/L Potassium Level 3.7mmol/L Chloride Level 103mmol/L Carbon Dioxide Level 25mmol/L Anion Gap 16 Blood Urea Nitrogen 37mg/dl Creatinine 1.22mg/dl Glucose Level 125mg/dl Calcium Level 9.4mg/dl Total Bilirubin 0.0mg/dl Direct Bilirubin 0.00mg/dl Indirect Bilirubin 0.0mg/dl Aspartate Amino Transf (AST/SGOT) 32IU/L Alanine Aminotransferase (ALT/SGPT) 51IU/L Alkaline Phosphatase 94IU/L Total Protein 7.0g/dl Albumin 4.0g/dl Globulin 3.00g/dl Albumin/Globulin Ratio 1.33 Ethyl Alcohol Level < 10.0mg/dl Urine Opiates Screen Positive Urine Barbiturates Negative Urine Amphetamines Screen Negative Urine Benzodiazepines Screen Positive Urine Cocaine Screen Negative Urine Cannabinoids Negative Procedures/MDM Smoking Cessation Therapy: Pt. was lectured for greater than 3 minutes on the health risks of continued smoking and the benefits of cessation. Patient is a 57-year-old male presents with acute suicidal ideation with plan. He was seen by psychiatry who has recommended a 5150 hold. He has been cleared with laboratory studies and a urinalysis medically. The patient was not given any medications as of yet. The patient will need transfer to a psychiatric inpatient facility for higher level of care as we do not have psychiatry here at [facility]. He will be signed out to the oncoming physician. He has anemia with a hemoglobin of 12.9 but does not require transfusion. Departure Diagnosis: Primary Impression: Suicidal ideation Additional Impression: Anemia Anemia type: unspecified type Qualified Code: D64.9 - Anemia, unspecified type Condition: EDMUND Elena MD Oct 09, 2017 21:26
--- NOTE | 2017-10-10 06:20 | EN ---
Date/Time of Note Date/Time of Note DATE: 10/10/17 TIME: 06:20 ER Progress Note Indication: 5150 hold Duration: 4 hr Family History: As documented in the original HPI The patient was observed with serial exams over the above timeframe. The patient continued to be well-appearing and observation continued without complication. All other needs have been met during emergency department stay. Routine psychiatric medications ordered: [Yes, see EMR] Hold status: [Telemetry medicine psychiatry recommended 5150 hold] Placement status: Pending VILMA CARBAJAL MD Oct 10, 2017 06:20
[2017-10-10 07:52] VITALS: BP 100/60; PULSE 85; RESP 18; TEMP 98.2
== END 2017-10-10 08:28 ==
LOC: E/R 17:37
DX: R45.851 Suicidal ideations (principal); D64.9 Anemia, unspecified; I10 Essential (primary) hypertension; E11.9 Type 2 diabetes mellitus without complications
CPT/HCPCS: 80053; 80306; 80307; 85025

== ENCOUNTER 2017-11-16 01:24 | Emergency (ER) | END 2017-11-16 11:02 ==

== ENCOUNTER 2017-11-27 20:22 | Emergency (ER) | END 2017-11-28 00:40 | disposition left against medical advice (07) ==

== ENCOUNTER 2017-12-22 14:24 | Emergency (ER) | END 2017-12-22 16:04 | disposition home or self-care (01) ==

== ENCOUNTER 2017-12-27 00:58 | Emergency (ER) | END 2017-12-27 14:02 ==

== ENCOUNTER 2018-01-11 09:25 | Emergency (ER) | END 2018-01-11 14:57 ==

== ENCOUNTER 2018-01-20 13:26 | Emergency (ER) | END 2018-01-20 15:09 | disposition home or self-care (01) ==

== ENCOUNTER 2018-05-02 20:16 | Emergency (ER) | END 2018-05-03 07:58 ==

== ENCOUNTER 2018-05-13 16:22 | Emergency (ER) | END 2018-05-13 19:02 | disposition home or self-care (01) ==

== ENCOUNTER 2018-06-20 15:42 | Emergency (ER) | END 2018-06-20 19:19 | disposition home or self-care (01) ==

== ENCOUNTER 2018-09-12 06:57 | Emergency (ER) | END 2018-09-12 09:09 | disposition home or self-care (01) ==

== ENCOUNTER 2018-09-14 13:28 | Emergency (ER) | END 2018-09-15 05:11 ==

== ENCOUNTER 2018-10-05 11:51 | Emergency (ER) | END 2018-10-05 14:50 | disposition home or self-care (01) ==